=== PATIENT | male | born 1955 | race Caucasian/White ===

== ENCOUNTER → 2017-03-30 | Outpatient (CLI) | payer BC ==
[~2017-03-30] MED LIST: ACET-1256 PO; ALBUAER2 OR; CHOL100010 PO; CLOP1TAB5 PO; CZR25 PO; PRAV80TA2 PO; ZTA10 PO
[2017-03-30 08:46] LABS: BLOOD UREA NITROGEN 12 mg/dl (7-18); BUN/CREATININE RATIO 14.2 (10-20); CARBON DIOXIDE 29 mmol/L (21-32); CHLORIDE 107 mmol/L (98-107); CREATININE 0.86 mg/dl (0.60-1.40); GLUCOSE 95 mg/dl (70-99); POTASSIUM 4.2 mmol/L (3.5-5.1); SODIUM 141 mmol/L (136-145)
[2017-03-30 08:49] LABS: CHOLESTEROL 124 mg/dl (0-200); CHOLESTEROL/HDL RATIO 2.6; HDL CHOLESTEROL 48 mg/dl; LDL CHOLESTEROL CALCULATED 60 mg/dl; TRIGLYCERIDES 80 mg/dl (0-150); VERY LOW DENSITY LIPOPROT CALC 16 mg/dl
[2017-03-30 08:51] LABS: CALCIUM 8.8 mg/dl (8.5-10.1)
== END | disposition home or self-care (01) ==
LOC: C.LAB 08:04
PROVIDERS: ATTEND Family Medicine
DX: I10 Essential (primary) hypertension (principal)

== ENCOUNTER 2024-09-23 09:53 | Inpatient (IN) ==
[2024-09-23 10:38] LABS: Basophils # (auto) 0.02 K/uL (0.00-0.20); Basophils % (auto) 0.3 %; Eosinophils # (auto) 0.09 K/uL (0.00-0.50); Eosinophils % (auto) 1.1 %; Hematocrit (blood only) 39.4 % (42.0-52.0); Hemoglobin 13.6 g/dl (14.0-18.0); Immature Granulocytes # (auto) 0.15 K/uL (0.01-0.20); Immature Granulocytes % (auto) 1.9 %; Lymphocytes # (auto) 0.96 K/uL (1.20-3.40); Lymphocytes % (auto) 12.2 %; Mean Corpuscular Hemoglobin 29.8 pg (25.0-34.0); Mean Corpuscular Hgb Conc 34.5 g/dL (32.0-36.0); Mean Corpuscular Volume 86.2 fL (80.0-100.0); Mean Platelet Volume 9.3 fL (9.4-12.4); Monocytes # (auto) 0.74 K/uL (0.11-0.59); Monocytes % (auto) 9.4 %; Neutrophils # (auto) 5.94 K/uL (1.40-6.50); Neutrophils % (auto) 75.1 %; Platelet Count 256 K/uL (130-400); RDW Coefficient of Variation 12.8 % (11.5-14.5); RDW Standard Deviation 40.5 fL (36.4-46.3); Red Blood Count 4.57 M/uL (4.70-6.10)
--- NOTE | 2024-09-23 10:39 | XRay Report ---
XR pelvis 1-2V routine CLINICAL HISTORY: trauma COMPARISON: Pelvis and left hip radiographs September 14, 2024. FINDINGS: Sacroiliac joints and symphysis previous are intact. There are no fractures within the pel vis or hips. No osseous lesions are identified. IMPRESSION: No fractures within the pelvis or hips. ACT 112: Negative or not required by law. Electronically signed by: Andres Baumann M.D. 09/23/2024 10:38 AM
--- NOTE | 2024-09-23 10:42 | XRay Report ---
XR chest 1V portable HISTORY: 69 years-old Male fall acute chest trauma status post fall COMPARISON: 08/16/2015 TECHNIQUE: AP view of the chest FINDINGS: Cardiac silhouette is enlarged. Median sternotomy. No pneumothorax, pleural effusion or pulmonary vania ma. Mild left basilar atelectasis. The bones appear grossly intact. IMPRESSION: Cardiomegaly without acute process. ACT 112: Negative or not required by law. The above report was generated using voice recognition software. It may contain grammatical, syntax o r spelling errors. Electronically signed by: Ck Gonsalves M.D. 09/23/2024 10:41 AM
[2024-09-23 10:51] LABS: Albumin Globulin Ratio 1.3 (0.9-2); Albumin Level 4.2 gm/dl (3.4-5.0); BUN Creatinine Ratio 18.3 (10-20); Bilirubin,Total 0.6 mg/dl (0.2-1.0); Calcium 9.4 mg/dl (8.6-10.3); Creatinine Clr Calc Pharmacy 120.1 ml/min; Globulin 3.3 gm/dl (2.5-4.0); Total Protein 7.5 gm/dl (6.0-8.3)
[2024-09-23 11:36] LABS: iSTAT Creatinine 0.7 mg/dl (0.6-1.3); iSTAT Ionized Calcium 1.22 mmol/l (1.12-1.32)
[2024-09-23 11:55] LABS: Appearance Urine Clear (Clear); Bilirubin Urine Negative (Negative); Blood Urine Negative (Negative); Color Urine Yellow; Glucose Urine UA Negative (Negative); Ketones Urine Negative (Negative); Leukocyte Esterase Urine Negative (Negative); Nitrite Urine Negative (Negative); Protein Urine Negative (Negative); Specific Gravity Urine 1.012 (1.000-1.030); Urobilinogen Urine Negative (Negative)
[2024-09-23] MEDS: OPTIRAY 320 100ml IV ONE (11:57)
--- NOTE | 2024-09-23 12:13 | CT Scan Report ---
CT head/brain wo con CLINICAL HISTORY: fall, ? CHI, abrasion to head plavix Technique: Contiguous axial CT images of the head were acquired from the base of the skull to the jackelyn mariel without intravenous contrast administration. Images were viewed in brain, subdural and bone windo ws. Automated dose lowering techniques and/or adjustment according to patient size were utilized for this exam. Comparison: Comparison is made to CT head 09/25/2007 Findings: Areas of decreased attenuation are present in the periventricular and subcortical white matter bilate rally consistent with small vessel ischemic disease. Generalized cerebral volume loss with commensura te enlargement of the ventricles, sulci, and cisterns is also present. Chronic encephalomalacia is ag ain seen. Imaged portions of the paranasal sinuses and mastoid air cells are clear. The orbits appear normal. There are no acute fractures of the calvaria or scalp swelling. Impression: No acute intracranial hemorrhage, no evidence of acute territorial infarction or other acute intracra nial disease process. ACT 112: Negative or not required by law. Electronically signed by: Stanley Pierre M.D. 09/23/2024 12:11 PM
--- NOTE | 2024-09-23 12:28 | CT Scan Report ---
CT SCAN OF THE LUMBAR SPINE WITH IV CONTRAST CLINICAL HISTORY: Trauma. Fall. COMPARISON STUDY: CT scan of the lumbar spine dated 09/14/2024. Abdominal CT was performed concurrent ly on 09/23/2024. MRI of the lumbar spine dated 09/14/2024. TECHNIQUE: Following the IV administration of 94 mL of Optiray 320, CT scan of the lumbar spine is pe rformed from the lower thoracic spine to the sacrum. The images are reviewed in the axial, sagittal, and coronal planes. IV contrast was administered without complication. A dose lowering technique was utilized adhering to the principles of ALARA. FINDINGS: The skeletal structures are osteopenic. Moderate chronic compression deformities of L1, L2, and L3 are unchanged. There is an [id number] on chronic burst type compression fracture of L4 , which has not appreciably changed as compared to the 09/14/2024 examinations. There is moderate los s of height, and fragments are minimally retropulsed by up to 4 mm at this level. This does not contr ibute to significant central canal stenosis. Vertebral body height is maintained at T11, T12, and L5. Alignment is preserved. There is straightening of the lumbar lordosis. Anterior and lateral marginal osteophytes are seen throughout. The transverse and spinous processes appear intact. There is no spo ndylolysis. No lytic or blastic lesion is seen. Facet arthropathy is seen in the lower lumbar region. There is xupulpdd-jh-phmfyf disc space narrowing with endplate sclerosis at L5-S1. Only mild narrowi ng is noted at the remaining lumbar levels. The visualized sacrum and bony pelvis appear intact. Para vertebral edema is noted at L4. A gas and fluid containing complex collection in the left psoas muscl e is partially visualized There is mild fatty atrophy of the paraspinous musculature. There is mild a therosclerotic calcification of the abdominal aorta, which is normal in caliber. No retroperitoneal l ymphadenopathy is identified. IMPRESSION: 1. There is unchanged appearance of an zpwfm-yh-xsrekbay on chronic burst type compression fracture o f L4 as detailed above when compared to the 09/14/2024 examinations. 2. No new fracture is seen. 3. Additional chronic compression deformities as above. 4. A gas and fluid containing collection in the left psoas muscle is partially visualized, and is sim ilar in appearance to the 09/14/2024 examinations. ACT 112: Negative or not required by law. Dictated: 09/23/2024 12:08 PM Transcribed: 09/23/2024 12:24 PM Jayme [id number] [email or web address] Electronically signed by: Chapo Fang M.D. 09/23/2024 12:26 PM
--- NOTE | 2024-09-23 12:32 | CT Scan Report ---
ABDOMEN AND PELVIS CT WITH IV CONTRAST CT DOSE: 2184.29 mGy.cm HISTORY: Acute low back pain with possible retroperitoneal hemorrhage . History of L1, L2 and L3 [employer] yrn compression deformities and acute on chronic L4 compression deformity. TECHNIQUE: Multiaxial CT images of the abdomen and pelvis were performed following the IV administrat ion of 94 cc of Optiray, A dose lowering technique was utilized adhering to the principles of ALARA. COMPARISON STUDY: CT lumbar spine of same day and also 09/14/2024 FINDINGS: Median sternotomy. Mild cardiomegaly. No pneumothorax, pleural effusion or airspace consoli dation. No pneumoperitoneum. The spleen, pancreas, adrenal glands and liver appear unremarkable. Mild ly distended gallbladder. Patent portal vein. Small bilateral renal cysts. No hydronephrosis or suspicious renal mass lesions. Prostatomegaly. Mild distention of the urinary bladder. Small fat filled left inguinal hernia. Atherosclerosis of the aor ta without aneurysm or dissection. There is no lymphadenopathy. Colonic diverticulosis with minimal inflammatory stranding adjacent to the descending sigmoid junctio n. Mild to moderate colonic fecal retention. Normal appendix. There is decreased size of the left bruce l as retroperitoneal hemorrhage now measuring approximately 3.4 x 2.4 x 6 cm, previously measured at 6.2 x 3.7 x 3.0 cm. There is also subtle decreased amount of air within this collection. Numerous lum bar spine compression fractures are noted. Specifically, there is severe compression fractures of L1, L2, L3 and L4. The L1-L3 fractures are likely chronic. The L4 fracture is likely acute on subacute a nd unchanged from 09/14/2024 with 6 mm retropulsion. IMPRESSION: 1. Unchanged appearance of the acute on chronic L4 burst fracture with 6 mm retropulsion. 2. Intramuscular hematoma within the left psoas muscle with decreased amount of intramuscular air is overall stable to slightly decreased in size from prior. 3. Colonic diverticulosis with equivocal mild acute diverticulitis of the descending sigmoid junction . 4. Additional findings as above. ACT 112: Negative or not required by law. The above report was generated using voice recognition software. It may contain grammatical, syntax o r spelling errors. Electronically signed by: Ck Gonsalves M.D. 09/23/2024 12:30 PM
--- NOTE | 2024-09-23 14:00 | Emergency Department Note ---
Impression & Plan Closed L4 vertebral fracture, History of stroke, Hemiplegia, Ambulatory dysfunction ED Provider Note CHIEF COMPLAINT: Fall from the couch HISTORY OF PRESENT ILLNESS: This 69-year-old male patient past medical history of CVA with left-sided residual weakness, lumbar compression fracture, nystagmus, vertigo presents to the emergency department with complaints of a fall from the couch. The patient most recently suffered a burst injury of L4 and was placed in a TLSO brace. Patient states he has lots of chronic lower back pain and numbness of the lower extremities in addition to the weakness of the left. He was trying to walk with his walker, but could not get off the couch with his brace in place, he is complaining of pain in the right greater than left lower extremity which is a bit unusual for him. He denies any incontinence of bowel or bladder. He has followed by Dr. Arnett of orthopedic spine. Please refer to HPI, at least 10 systems reviewed and otherwise negative. REVIEW OF SYSTEMS: A review of systems was performed with positives and pertinent negatives listed in the history of present illness. 10 systems were reviewed and are otherwise negative. ALLERGIES: see below MEDICATIONS: see below PMH: see below SOCIAL HISTORY: see below DDx: Worsen compression fracture of L4, secondary compression fracture, psoas hematoma, muscular strain, cord compression, infectious etiology, metabolic derangement, dehydration among others. PHYSICAL EXAM: Vital signs reviewed. General: Chronically ill-appearing 69-year-old male, in no significant distress. HEENT: No scleral icterus, PERRLA, neck supple. Atraumatic. Cardiovascular: Regular rate and rhythm, no extra sounds. Pulmonary: Clear to auscultation bilaterally, normal work of breathing. Abdomen: Soft, nontender, nondistended, positive bowel sounds. Musculoskeletal: Atraumatic, no peripheral edema. No obvious trauma to the back, mild tenderness to palpation along the spine of the low lumbar, no evidence of step-off or deformity. Neurologic: Patient awake alert and oriented x 3, speech is clear. Cranial nerves II through XII are grossly intact. The left upper extremity is weak with a bit of contracture, and the left lower extremity is weak without evidence of contracture. Right upper and right lower extremities are 5/5. Skin: Warm, dry, no rash EMERGENCY DEPARTMENT COURSE/MDM: This patient was evaluated and appeared to be in no significant distress. IV access was obtained and laboratory work was drawn. The patient was placed on the director of cardiac cath lab and noted to be in a normal sinus rhythm. Patient declined the need for any analgesics at this time. Laboratory work is fairly reassuring. CT imaging of the lumbar spine was performed and reveals evidence of a previous L4 burst fracture without any significant change. There is also evidence of shift or strong intramuscular hematoma in the left psoas, which was visualized previously, and seems to be decreased in size. In light of his. Patient is not able to manage at home even with a walker. Nursing staff attempted to ambulate the patient he required a two-person assist and a walker. The hospitalist service was consulted for admission, the patient will likely require PT OT evaluation and consideration of the rehab stay. The patient and his family were updated as to the findings and plan and agreed. MONITORING: An order for cardiac monitoring was placed and the patient is noted to be in a normal sinus rhythm at 83 beats per minute. RADIOLOGY: Pelvis x-ray to my interpretation reveals no evidence of acute fracture. Otherwise refer to radiology's over read. Chest x-ray to my interpretation reveals no evidence of focal lung consolidation or failure. Otherwise defer to radiology. CT imaging of the abdomen and pelvis per radiology: IMPRESSION: 1. Unchanged appearance of the acute on chronic L4 burst fracture with 6 mm retropulsion. 2. Intramuscular hematoma within the left psoas muscle with decreased amount of intramuscular air is overall stable to slightly decreased in size from prior. 3. Colonic diverticulosis with equivocal mild acute diverticulitis of the descending sigmoid junction. 4. Additional findings as above. CT imaging of the lumbar spine with IV contrast: IMPRESSION: 1. There is unchanged appearance of an [id number] on chronic burst type compression fracture of L4 as detailed above when compared to the 09/14/2024 examinations. 2. No new fracture is seen. 3. Additional chronic compression deformities as above. 4. A gas and fluid containing collection in the left psoas muscle is partially visualized, and is similar in appearance to the 09/14/[address] imaging of the head per radiology: Reveals chronic encephalomalacia, no evidence of acute abnormality otherwise. EKG: To my interpretation reveals a sinus tachycardia at 107 bpm, previous inferior infarct, T wave abnormality, nonspecific. QTc of 421. DISPOSITION: Admission Past Med/Surg History Problem List (Updated 09/25/24 @ 13:50 by Vianey Manzo MD) Ambulatory dysfunction (Acute) Hemiplegia (Acute) History of stroke (Acute) Closed L4 vertebral fracture (Acute) Ambulatory dysfunction History of CVA (cerebrovascular accident) Recurrent falls Compression fracture of lumbar vertebra (Acute) Fall (Acute) Acute left-sided low back pain (Acute) Acute pain of left hip (Acute) Fracture of right ankle, lateral malleolus Encounter for pre-operative examination Finger laceration (Acute) Compression fracture of L1 lumbar vertebra (Acute) Horizontal nystagmus (Acute) Shortness of breath (Acute) Vertigo (Acute) Medical History Carotid artery stenosis s/p right carotid endarterectomy (~2000), Follows with Dr. Carpenter History of back pain Degenerative disc disease Stroke 1999, 2002 > residual left side weakness, on plavix Hypertension Hyperlipidemia Surgical History History of cardiac cath ~1999 ([facility] [place]) > no stents History of carotid endarterectomy Right carotid ([facility] [place]/~2000) Family History Other No family history of adverse response to anesthesia Social History Smoking Status: Never smoker Second Hand Exposure: No; Do You Dip or Chew Tobacco: No; Hx Alcohol Use: Yes Alcohol type: beer Hx Substance Use: No Preferred Language: Hungarian Communication Ability: Effective [employer] Required: No Beliefs That Will Affect Care: None Current Living Situation: Spouse Feels Safe at Home: Yes Safety Concerns: Feels Safe At This Time Assistive Devices: Bedside Commode and Walker Allergies Allergies Allergy/AdvReac Type Severity Reaction Status Date / Time No Known Allergies Allergy Unknown Verified 09/01/21 09:50 Home Meds Home Medications Medication Instructions Recorded Confirmed cholecalciferol (vitamin D3) 25 25 mcg PO QAM 08/18/21 09/23/24 mcg (1,000 unit) capsule (Vitamin D3) clopidogrel 75 mg tablet 75 mg PO QAM 08/18/21 09/23/24 ezetimibe 10 mg tablet 10 mg PO QAM 08/18/21 09/23/24 losartan 50 mg tablet 50 mg PO QAM 08/18/21 09/23/24 multivitamin 1 tab PO QAM 08/18/21 09/23/24 pravastatin 80 mg tablet 80 mg PO QAM 08/18/21 09/23/24 Previous Rx's Medication Instructions Recorded gabapentin 100 mg capsule 100 mg PO TID PRN tingling #30 caps 09/14/24 gabapentin 300 mg capsule 300 mg PO BID #60 caps 09/17/24 methocarbamol 500 mg tablet 500 mg PO TID PRN muscle spasms 09/17/24 #90 tabs Results & Data (ED) Vital Signs Vital Signs - 24 hr 09/23/24 10:00 09/23/24 10:00 09/23/24 10:00 Temperature 36.5 C 36.5 C Temperature Source Oral Pulse Rate 88 88 Pulse Rate [Apical] 88 Pulse Rhythm Regular Pulse Rhythm [Apical] Regular Pulse Strength Normal Pulse Strength [Apical] Normal Respiratory Rate 14 14 14 Respiratory Effort / Characteristics Non-Labored Non-Labored Respiratory Depth Normal Normal Respiratory Pattern Regular Regular Blood Pressure 127/87 127/87 Blood Pressure [Right Arm] 127/87 Blood Pressure Mean 100 Blood Pressure Mean [Right Arm] 100 Blood Pressure Position [Right Arm] Lying Pulse Oximetry 94 94 94 Oxygen Delivery Method Room Air Room Air Room Air Sepsis Recent Fever Within 48 Hours No Sepsis New/Unexplained Change in Mental Status No Sepsis Action Taken by Nursing No Action Required 09/23/24 10:00 09/23/24 10:00 09/23/24 10:13 Temperature Temperature Source Pulse Rate 81 Pulse Rate [Apical] 88 Pulse Rhythm Regular Pulse Rhythm [Apical] Regular Pulse Strength Pulse Strength [Apical] Normal Respiratory Rate 14 18 Respiratory Effort / Characteristics Non-Labored Respiratory Depth Normal Respiratory Pattern Regular Blood Pressure Blood Pressure [Right Arm] 127/87 Blood Pressure Mean Blood Pressure Mean [Right Arm] 100 Blood Pressure Position [Right Arm] Lying Pulse Oximetry 94 95 Oxygen Delivery Method Room Air Room Air Room Air Sepsis Recent Fever Within 48 Hours Sepsis New/Unexplained Change in Mental Status Sepsis Action Taken by Nursing 09/23/24 10:30 09/23/24 12:43 09/23/24 12:43 Temperature Temperature Source Pulse Rate 91 H Pulse Rate [Apical] 83 83 Pulse Rhythm Pulse Rhythm [Apical] Pulse Strength Pulse Strength [Apical] Respiratory Rate 20 20 Respiratory Effort / Characteristics Non-Labored Non-Labored Respiratory Depth Normal Normal Respiratory Pattern Blood Pressure Blood Pressure [Right Arm] 123/82 123/87 Blood Pressure Mean Blood Pressure Mean [Right Arm] 95 99 Blood Pressure Position [Right Arm] Pulse Oximetry 93 98 Oxygen Delivery Method Room Air Room Air Sepsis Recent Fever Within 48 Hours Sepsis New/Unexplained Change in Mental Status Sepsis Action Taken by Nursing 09/23/24 14:48 09/23/24 14:48 09/23/24 15:00 Temperature Temperature Source Pulse Rate Pulse Rate [Apical] 87 87 87 Pulse Rhythm Pulse Rhythm [Apical] Pulse Strength Pulse Strength [Apical] Respiratory Rate 20 20 20 Respiratory Effort / Characteristics Non-Labored Non-Labored Non-Labored Spontaneous Respiratory Depth Normal Normal Respiratory Pattern Blood Pressure Blood Pressure [Right Arm] 130/86 Blood Pressure Mean Blood Pressure Mean [Right Arm] 100 Blood Pressure Position [Right Arm] Lying Pulse Oximetry 98 98 98 Oxygen Delivery Method Room Air Room Air Room Air Sepsis Recent Fever Within 48 Hours Sepsis New/Unexplained Change in Mental Status Sepsis Action Taken by Retirement Medications Current Medication List: was personally reviewed by me Laboratory Data Attestation: I reviewed the patient's lab results. 09/24/24 07:18 09/24/24 07:18 Lab Results 09/23/24 09/23/24 09/23/24 Range/Units 09:59 11:16 11:22 WBC 7.90 (4.8-10.8) K/ul RBC 4.57 L (4.70-6.10) M/uL Hgb 13.6 L (14.0-18.0) g/dl POC Hgb 18.0 (14.0-18.0) g/dl Hct 39.4 L (42.0-52.0) % POC Hct 53 H (42-52) % MCV 86.2 (80.0-100.0) fL MCH 29.8 (25.0-34.0) pg MCHC 34.5 (32.0-36.0) g/dL RDW Std Deviation 40.5 (36.4-46.3) fL RDW Coeff of Ag 12.8 (11.5-14.5) % Plt Count 256 (130-400) K/uL MPV 9.3 L (9.4-12.4) fL Immature Gran % (Auto) 1.9 % Neut % (Auto) 75.1 % Lymph % (Auto) 12.2 % [place] % (Auto) 9.4 % Eos % (Auto) 1.1 % Baso % (Auto) 0.3 % Neut # (Auto) 5.94 (1.40-6.50) K/uL Lymph # (Auto) 0.96 L (1.20-3.40) K/uL [place] # (Auto) 0.74 H (0.11-0.59) K/uL Eos # (Auto) 0.09 (0.00-0.50) K/uL Baso # (Auto) 0.02 (0.00-0.20) K/uL Immature Gran # (Auto) 0.15 (0.01-0.20) K/uL POC Sodium 136 (135-144) mmol/L Sodium 134 L (136-145) mmol/L POC Potassium 4.0 (3.3-5.0) mmol/L Potassium 4.0 (3.5-5.1) mmol/L POC Chloride 100 L (101-112) mmol/L Chloride 102 (98-107) mmol/L Carbon Dioxide 25 (21-32) mmol/L POC Total CO2 23 L (24-31) mmol/L Anion Gap 7 (3-11) POC Anion Gap 18.0 (16-25) mmol/L POC BUN 13 (7-18) mg/dl BUN 13 (6-23) mg/dl Creatinine 0.71 (0.6-1.4) mg/dl POC Creatinine 0.7 (0.6-1.3) mg/dl Est Cr Clr Drug Dosing 120.1 ml/min eGFR 98.70 BUN/Creatinine Ratio 18.3 (10-20) Glucose 116 H (70-99(Fasting)) mg/dl POC Glucose (other) 111 H (70-99) mg/dl Calcium 9.4 (8.6-10.3) mg/dl POC Ioniz Calcium Cee 1.22 (1.12-1.32) mmol/l Total Bilirubin 0.6 (0.2-1.0) mg/dl AST 21 (13-39) U/L ALT 22 (7-52) U/L Alkaline Phosphatase 89 (34-104) U/L Total Protein 7.5 (6.0-8.3) gm/dl Albumin 4.2 (3.4-5.0) gm/dl Globulin 3.3 (2.5-4.0) gm/dl Albumin/Globulin Ratio 1.3 (0.9-2) Urine Color Yellow Urine Appearance Clear (Clear) Urine pH 7.0 (4.5-7.5) Ur Specific [place] 1.012 (1.000-1.030) Urine Protein Negative (Negative) Urine Glucose (UA) Negative (Negative) Urine Ketones Negative (Negative) Urine Blood Negative (Negative) Urine Nitrite Negative (Negative) Urine Bilirubin Negative (Negative) Urine Urobilinogen Negative (Negative) Ur Leukocyte Esterase Negative (Negative) Administered Medications Acetaminophen (Acetaminophen 325 Mg Tab) 650 mg PO Q4H PRN PRN Reason: pain/fever Stop: 10/23/24 17:42 Last Admin: 09/25/24 02:50 Dose: 650 mg Documented By: Admin: 09/24/24 21:41 Dose: 650 mg Documented By: Admin: 09/24/24 03:08 Dose: 650 mg Documented By: Admin: 09/23/24 19:37 Dose: 650 mg Documented By: SMITHA Clopidogrel Bisulfate (Clopidogrel Bisulfate 75 Mg Tab) 75 mg PO [facility] Stop: 10/24/24 08:59 Last Admin: 09/25/24 07:30 Dose: 75 mg Documented By: Admin: 09/24/24 07:24 Dose: 75 mg Documented By: ESTEFNAIA Ezetimibe (Ezetimibe 10 Mg Tab) 10 mg PO [facility] Stop: 10/24/24 08:59 Last Admin: 09/25/24 07:30 Dose: 10 mg Documented By: Admin: 09/24/24 07:24 Dose: 10 mg Documented By: ESTEFANIA Enoxaparin Sodium (Enoxaparin Inj 40 Mg/0.4 Ml Syr) 40 mg SQ [facility] Stop: 10/25/24 08:59 Last Admin: 09/25/24 08:01 Dose: 40 mg Documented By: NAY Gabapentin (Gabapentin 300 Mg Cap) 300 mg PO BID [facility] Stop: 10/23/24 20:59 Last Admin: 09/25/24 07:30 Dose: 300 mg Documented By: Admin: 09/24/24 21:41 Dose: 300 mg Documented By: Admin: 09/24/24 07:25 Dose: 300 mg Documented By: Admin: 09/23/24 20:10 Dose: 300 mg Documented By: SMITHA Losartan Potassium (Losartan Potassium 50 Mg Tab) 50 mg PO [facility] Stop: 10/24/24 08:59 Last Admin: 09/25/24 07:30 Dose: 50 mg Documented By: Admin: 09/24/24 07:24 Dose: 50 mg Documented By: ESTEFANIA Pravastatin Sodium (Pravastatin Sod 40 Mg Tab) 80 mg PO [facility] Stop: 10/24/24 08:59 Last Admin: 09/25/24 07:30 Dose: 80 mg Documented By: Admin: 09/24/24 07:24 Dose: 80 mg Documented By: ESTEFANIA Discontinued Medications Ioversol (Optiray 320 100ml) 94 ml IV ONCE ONE Stop: 09/23/24 11:58 Last Admin: 09/23/24 11:57 Dose: 94 ml Documented By: YARA Lidocaine (Lidocaine 5% 1 Patch) 1 patch TD NOW STA Stop: 09/23/24 14:59 Last Admin: 09/23/24 15:15 Dose: 1 patch Documented By: DEVEN Miscellaneous (Remove Lidoderm Patch) 1 each N/A TODAY@2100 ONE Stop: 09/23/24 21:01 Last Admin: 09/23/24 20:11 Dose: 1 each Documented By: SMITHA Imaging Data Radiologist's Impression: Pelvis X-Ray 09/23/24 10:13 XR pelvis 1-2V routine CLINICAL HISTORY: trauma COMPARISON: Pelvis and left hip radiographs September 14, 2024. FINDINGS: Sacroiliac joints and symphysis previous are intact. There are no fractures within the pelvis or hips. No osseous lesions are identified. IMPRESSION: No fractures within the pelvis or hips. ACT 112: Negative or not required by law. Electronically signed by: Andres Baumann M.D. 09/23/2024 10:38 AM Abdomen/Pelvis CT 09/23/24 10:[address] WITH IV CONTRAST CT DOSE: 2184.29 mGy.cm HISTORY: Acute low back pain with possible retroperitoneal hemorrhage . History of L1, L2 and L3 chronic compression deformities and acute on chronic L4 compression deformity. TECHNIQUE: Multiaxial CT images of the abdomen and pelvis were performed following the IV administration of 94 cc of Optiray, A dose lowering technique was utilized adhering to the principles of ALARA. COMPARISON STUDY: CT lumbar spine of same day and also 09/14/2024 FINDINGS: Median sternotomy. Mild cardiomegaly. No pneumothorax, pleural effusion or airspace consolidation. No pneumoperitoneum. The spleen, pancreas, adrenal glands and liver appear unremarkable. Mildly distended gallbladder. Patent portal vein. Small bilateral renal cysts. No hydronephrosis or suspicious renal mass lesions. Prostatomegaly. Mild distention of the urinary bladder. Small fat filled left inguinal hernia. Atherosclerosis of the aorta without aneurysm or dissection. There is no lymphadenopathy. Colonic diverticulosis with minimal inflammatory stranding adjacent to the descending sigmoid junction. Mild to moderate colonic fecal retention. Normal appendix. There is decreased size of the left cell as retroperitoneal hemorrhage now measuring approximately 3.4 x 2.4 x 6 cm, previously measured at 6.2 x 3.7 x 3.0 cm. There is also subtle decreased amount of air within this collection. Numerous lumbar spine compression fractures are noted. Specifically, there is severe compression fractures of L1, L2, L3 and L4. The L1-L3 fractures are likely chronic. The L4 fracture is likely acute on subacute and unchanged from 09/14/2024 with 6 mm retropulsion. IMPRESSION: 1. Unchanged appearance of the acute on chronic L4 burst fracture with 6 mm retropulsion. 2. Intramuscular hematoma within the left psoas muscle with decreased amount of intramuscular air is overall stable to slightly decreased in size from prior. 3. Colonic diverticulosis with equivocal mild acute diverticulitis of the descending sigmoid junction. 4. Additional findings as above. ACT 112: Negative or not required by law. The above report was generated using voice recognition software. It may contain grammatical, syntax or spelling errors. Electronically signed by: Ck Gonsalves M.D. 09/23/2024 12:30 PM Chest X-Ray 09/23/24 10:14 XR chest 1V portable HISTORY: 69 years-old Male fall acute chest trauma status post fall COMPARISON: 08/16/2015 TECHNIQUE: AP view of the chest FINDINGS: Cardiac silhouette is enlarged. Median sternotomy. No pneumothorax, pleural effusion or pulmonary edema. Mild left basilar atelectasis. The bones appear grossly intact. IMPRESSION: Cardiomegaly without acute process. ACT 112: Negative or not required by law. The above report was generated using voice recognition software. It may contain grammatical, syntax or spelling errors. Electronically signed by: Ck Gonsalves M.D. 09/23/2024 10:[address] 09/23/24 10:14 CT SCAN OF THE LUMBAR SPINE WITH IV CONTRAST CLINICAL HISTORY: Trauma. Fall. COMPARISON STUDY: CT scan of the lumbar spine dated 09/14/2024. Abdominal CT was performed concurrently on 09/23/2024. MRI of the lumbar spine dated 09/14/2024. TECHNIQUE: Following the IV administration of 94 mL of Optiray 320, CT scan of the lumbar spine is performed from the lower thoracic spine to the sacrum. The images are reviewed in the axial, sagittal, and coronal planes. IV contrast was administered without complication. A dose lowering technique was utilized adhering to the principles of ALARA. FINDINGS: The skeletal structures are osteopenic. Moderate chronic compression deformities of L1, L2, and L3 are unchanged. There is an [id number] on chronic burst type compression fracture of L4, which has not appreciably changed as compared to the 09/14/2024 examinations. There is moderate loss of height, and fragments are minimally retropulsed by up to 4 mm at this level. This does not contribute to significant central canal stenosis. Vertebral body height is maintained at T11, T12, and L5. Alignment is preserved. There is straightening of the lumbar lordosis. Anterior and lateral marginal osteophytes are seen throughout. The transverse and spinous processes appear intact. There is no spondylolysis. No lytic or blastic lesion is seen. Facet arthropathy is seen in the lower lumbar region. There is [id number] disc space narrowing with endplate sclerosis at L5-S1. Only mild narrowing is noted at the remaining lumbar levels. The visualized sacrum and bony pelvis appear intact. Paravertebral edema is noted at L4. A gas and fluid containing complex collection in the left psoas muscle is partially visualized There is mild fatty atrophy of the paraspinous musculature. There is mild atherosclerotic calcification of the abdominal aorta, which is normal in caliber. No retroperitoneal lymphadenopathy is identified. IMPRESSION: 1. There is unchanged appearance of an [id number] on chronic burst type compression fracture of L4 as detailed above when compared to the 09/14/2024 examinations. 2. No new fracture is seen. 3. Additional chronic compression deformities as above. 4. A gas and fluid containing collection in the left psoas muscle is partially visualized, and is similar in appearance to the 09/14/2024 examinations. ACT 112: Negative or not required by law. Dictated: 09/23/2024 12:08 PM Transcribed: 09/23/2024 12:24 PM Jayme [id number] [email or web address] Electronically signed by: Chapo Fang M.D. 09/23/2024 12:[address] 09/23/24 10:17 CT head/brain wo con CLINICAL HISTORY: fall, ? [facility], abrasion to head plavix Technique: Contiguous axial CT images of the head were acquired from the base of the skull to the vertex without intravenous contrast administration. Images were viewed in brain, subdural and bone windows. Automated dose lowering techniques and/or adjustment according to patient size were utilized for this exam. Comparison: Comparison is made to CT head 09/25/2007 Findings: Areas of decreased attenuation are present in the periventricular and subcortical white matter bilaterally consistent with small vessel ischemic disease. Generalized cerebral volume loss with commensurate enlargement of the ventricles, sulci, and cisterns is also present. Chronic encephalomalacia is again seen. Imaged portions of the paranasal sinuses and mastoid air cells are clear. The orbits appear normal. There are no acute fractures of the calvaria or scalp swelling. Impression: No acute intracranial hemorrhage, no evidence of acute territorial infarction or other acute intracranial disease process. ACT 112: Negative or not required by law. Electronically signed by: Stanley Pierre M.D. 09/23/2024 12:11 PM Discharge Plan Visit Data Chief Complaint: Trauma ED Provider: Vianey Manzo Discharge Problem: Closed L4 vertebral fracture, History of stroke, Hemiplegia, Ambulatory dysfunction Patient Disposition: Admitted As Inpatient Discharge Instructions Interventions: ED Discharge Assessment Last Done: 09/23/24 17:17
--- NOTE | 2024-09-23 14:10 | History & Physical Report ---
Date of Service September 23, 2024 Assessment & Plan (1) Compression fracture of lumbar vertebra: Plan: Patient originally fell on 09/10 and was diagnosed with a L4 compression fracture on 09/14 Sustained another ground-level fall while getting off the couch on 09/23 Imaging is largely unchanged Case management consulted for rehab placement upon discharge Acetaminophen as needed for pain Lidocaine patch daily Heat/ice application as needed A.m. CBC, BMP (2) Recurrent falls: Plan: PT/OT evaluations appreciated Fall precautions (3) History of CVA (cerebrovascular accident): Plan: Residual left-sided deficits; contributory (4) Ambulatory dysfunction: Plan Disposition: Admit to [facility] Full code Regular diet VTE PPx: Teds History of Present Illness Chief Complaint: Trauma Primary Care Provider: Alierza Ramírez MD Devin is a 69-year-old male with PMH of vertigo, CVA, and L1 compression fracture. He presented on 09/23 for recurrent fall and ambulatory dysfunction. He was initially seen in the ED on 09/14 for a fall that occurred on 09/10 leading to a burst fracture at L4. He had an MRI done at that time, and followed up with a spine doctor outpatient (Dr. Arnett) who fit him for a TLSO brace. Then today, he reports he got off his couch and fell onto the floor. He denies head strike, but does note he has a slight abrasion on the back of his head. No LOC. He is on Plavix for history of strokes. He ambulates with a walker and cane at baseline, and reports he had his walker at the time. Patient has a history of recurrent falls, which is multi factorial. He has a history of stroke in 1999, and mini stroke in 2002 which was led to left upper and and lower extremity deficits. He also has a history of a right ankle surgery 3 years ago with residual right ankle deficits. Family is at the bedside, and reports that he does have right foot drop, and drags his foot when he walks. His falls have been increasing in frequency: Fell in July, then at the beginning of September, then again today. Patient took his regular morning medicines today; only recent change was that he was started on a muscle relaxer the past week for his back. Patient manages own medicine at home. He reports he does have lower back pain, but is only with movements. ED has been taking Tylenol and a muscle relaxer for pain, as well as his gabapentin, which helps. He denies smoking, tobacco use, recent alcohol use. Vital stable at time of admission. ED course: ROS: Patient endorses cold intolerance, lower back pain with movements, ambulatory dysfunction, and constipation + some dark tarry stool (which started after starting the muscle relaxer). Patient denies fever, chills, dizziness, lightheadedness, headache, syncope, chest pain, pleuritic CP, SOB, cough, abdominal pain, N/V/D, saddle anesthesia, urinary/fecal incontinence, bright red blood in the urine or stool, or numbness or tingling in the legs bilaterally. Allergies Allergy/AdvReac Type Severity Reaction Status Date / Time No Known Allergies Allergy Unknown Verified 09/01/21 09:50 Home Medications Medication Instructions Recorded Confirmed Type cholecalciferol (vitamin D3) 25 25 mcg PO QAM 08/18/21 09/23/24 History mcg (1,000 unit) capsule (Vitamin D3) clopidogrel 75 mg tablet 75 mg PO QAM 08/18/21 09/23/24 History ezetimibe 10 mg tablet 10 mg PO QAM 08/18/21 09/23/24 History losartan 50 mg tablet 50 mg PO QAM 08/18/21 09/23/24 History multivitamin 1 tab PO QAM 08/18/21 09/23/24 History pravastatin 80 mg tablet 80 mg PO QAM 08/18/21 09/23/24 History gabapentin 100 mg capsule 100 mg PO TID PRN tingling #30 caps 09/14/24 09/23/24 Rx gabapentin 300 mg capsule 300 mg PO BID #60 caps 09/17/24 09/23/24 Rx methocarbamol 500 mg tablet 500 mg PO TID PRN muscle spasms 09/17/24 09/23/24 Rx #90 tabs Past Med/Surg History Problem List (Updated 09/23/24 @ 14:28 by Gómez Ravi PA-C) Ambulatory dysfunction History of CVA (cerebrovascular accident) Recurrent falls Compression fracture of lumbar vertebra (Acute) Fall (Acute) Acute left-sided low back pain (Acute) Acute pain of left hip (Acute) Fracture of right ankle, lateral malleolus Encounter for pre-operative examination Finger laceration (Acute) Compression fracture of L1 lumbar vertebra (Acute) Horizontal nystagmus (Acute) Shortness of breath (Acute) Vertigo (Acute) Medical History Carotid artery stenosis s/p right carotid endarterectomy (~2000), Follows with Dr. Carpenter Degenerative disc disease History of back pain Hyperlipidemia Hypertension Stroke 1999, 2002 > residual left side weakness, on plavix Surgical History History of cardiac [place] ~[place] [place] > no stents History of carotid endarterectomy Right carotid [place] [place]) Family History Other No family history of adverse response to anesthesia Social History Smoking Status: Never smoker Second Hand Exposure: No; Do You Dip or Chew Tobacco: No; Hx Alcohol Use: Yes Alcohol type: beer Hx Substance Use: No Preferred Language: Spanish Communication Ability: Effective Sock Lining Stitcher Required: No Beliefs That Will Affect Care: None Current Living Situation: Spouse Feels Safe at Home: Yes Assistive Devices: Brace/Splint/Immobilizer, Denture - Upper, Denture - Lower, Glasses and Walker Review of Systems Review of Systems: See HPI above Physical Exam Physical Exam: General: no acute distress; family at bedside non-toxic appearing; frail appearing; cooperative; SpO2 90% on RA HEENT: normocephalic, atraumatic; no scleral icterus; PERRLA w/ EOMs intact; vision and hearing grossly intact Neck: supple; no lymphadenopathy; trachea midline Skin: warm, dry without signs of tenting; no cyanosis; no rashes, bruising, lesions, or erythema noted CV: chest wall NTP; RRR; S1/S2 normal; no murmurs/rubs/gallops; pulses intact and symmetric at radial, DP, and PT Lungs: no acute respiratory distress; symmetrical chest wall expansion; clear breath sounds across all lung fox w/o adventitious sounds; no wheezing ABD: Soft, NTP; BS present; no rebound/guarding; no distention MSK: Muscle atrophy noted on the LUE and LLE; no tics or fasciculations; no edema noted in the LEs b/l, nonerythematous; patient demonstrates ability to wiggle toes/plantarflex/dorsiflex against resistance with 5/5 strength, and lift legs off the bed bilaterally with 4/5 strength Neuro: A&Ox3; normal mood and affect; fluent speech; no focal deficits; patient reports decreased sensation in the left lower extremity when compared to the right assessed via light touch Results & Data Results & Data Vital Signs (Past 12 Hours) Vital Signs Temp Pulse Pulse Resp BP BP Pulse Ox 09/23/24 12:43 83 20 123/87 98 09/23/24 12:43 83 20 123/82 93 09/23/24 10:30 91 H 09/23/24 10:13 81 18 95 09/23/24 10:00 88 14 127/87 94 09/23/24 10:00 09/23/24 10:00 36.5 C 88 14 127/87 94 09/23/24 10:00 88 14 127/87 94 09/23/24 10:00 36.5 C 88 14 127/87 94 O2 Del Method 09/23/24 12:43 Room Air 09/23/24 12:43 Room Air 09/23/24 10:30 09/23/24 10:13 Room Air 09/23/24 10:00 Room Air 09/23/24 10:00 Room Air 09/23/24 10:00 Room Air 09/23/24 10:00 Room Air 09/23/24 10:00 Room Air Laboratory Results Abnormal lab results 09/23/24 09/23/24 Range/Units 09:59 11:22 RBC 4.57 L (4.70-6.10) M/uL Hgb 13.6 L (14.0-18.0) g/dl Hct 39.4 L (42.0-52.0) % POC Hct 53 H (42-52) % MPV 9.3 L (9.4-12.4) fL Lymph # (Auto) 0.96 L (1.20-3.40) K/uL [place] # (Auto) 0.74 H (0.11-0.59) K/uL Sodium 134 L (136-145) mmol/L POC Chloride 100 L (101-112) mmol/L POC Total CO2 23 L (24-31) mmol/L Glucose 116 H (70-99(Fasting)) mg/dl POC Glucose (other) 111 H (70-99) mg/dl Diagnostic Findings Pelvis X-Ray 09/23/24 10:13 XR pelvis 1-2V routine CLINICAL HISTORY: trauma COMPARISON: Pelvis and left hip radiographs September 14, 2024. FINDINGS: Sacroiliac joints and symphysis previous are intact. There are no fractures within the pelvis or hips. No osseous lesions are identified. IMPRESSION: No fractures within the pelvis or hips. ACT 112: Negative or not required by law. Electronically signed by: Andres Baumann M.D. 09/23/2024 10:38 AM Abdomen/Pelvis CT 09/23/24 10:[address] WITH IV CONTRAST CT DOSE: 2184.29 mGy.cm HISTORY: Acute low back pain with possible retroperitoneal hemorrhage . History of L1, L2 and L3 chronic compression deformities and acute on chronic L4 compression deformity. TECHNIQUE: Multiaxial CT images of the abdomen and pelvis were performed following the IV administration of 94 cc of Optiray, A dose lowering technique was utilized adhering to the principles of ALARA. COMPARISON STUDY: CT lumbar spine of same day and also 09/14/2024 FINDINGS: Median sternotomy. Mild cardiomegaly. No pneumothorax, pleural effusion or airspace consolidation. No pneumoperitoneum. The spleen, pancreas, adrenal glands and liver appear unremarkable. Mildly distended gallbladder. Patent portal vein. Small bilateral renal cysts. No hydronephrosis or suspicious renal mass lesions. Prostatomegaly. Mild distention of the urinary bladder. Small fat filled left inguinal hernia. Atherosclerosis of the aorta without aneurysm or dissection. There is no lymphadenopathy. Colonic diverticulosis with minimal inflammatory stranding adjacent to the descending sigmoid junction. Mild to moderate colonic fecal retention. Normal appendix. There is decreased size of the left cell as retroperitoneal hemorrhage now measuring approximately 3.4 x 2.4 x 6 cm, previously measured at 6.2 x 3.7 x 3.0 cm. There is also subtle decreased amount of air within this collection. Numerous lumbar spine compression fractures are noted. Specifically, there is severe compression fractures of L1, L2, L3 and L4. The L1-L3 fractures are likely chronic. The L4 fracture is likely acute on subacute and unchanged from 09/14/2024 with 6 mm retropulsion. IMPRESSION: 1. Unchanged appearance of the acute on chronic L4 burst fracture with 6 mm retropulsion. 2. Intramuscular hematoma within the left psoas muscle with decreased amount of intramuscular air is overall stable to slightly decreased in size from prior. 3. Colonic diverticulosis with equivocal mild acute diverticulitis of the descending sigmoid junction. 4. Additional findings as above. ACT 112: Negative or not required by law. The above report was generated using voice recognition software. It may contain grammatical, syntax or spelling errors. Electronically signed by: Ck Gonsalves M.D. 09/23/2024 12:30 PM Chest X-Ray 09/23/24 10:14 XR chest 1V portable HISTORY: 69 years-old Male fall acute chest trauma status post fall COMPARISON: 08/16/2015 TECHNIQUE: AP view of the chest FINDINGS: Cardiac silhouette is enlarged. Median sternotomy. No pneumothorax, pleural effusion or pulmonary edema. Mild left basilar atelectasis. The bones appear grossly intact. IMPRESSION: Cardiomegaly without acute process. ACT 112: Negative or not required by law. The above report was generated using voice recognition software. It may contain grammatical, syntax or spelling errors. Electronically signed by: Ck Gonsalves M.D. 09/23/2024 10:[address] 09/23/24 10:14 CT SCAN OF THE LUMBAR SPINE WITH IV CONTRAST CLINICAL HISTORY: Trauma. Fall. COMPARISON STUDY: CT scan of the lumbar spine dated 09/14/2024. Abdominal CT was performed concurrently on 09/23/2024. MRI of the lumbar spine dated 09/14/2024. TECHNIQUE: Following the IV administration of 94 mL of Optiray 320, CT scan of the lumbar spine is performed from the lower thoracic spine to the sacrum. The images are reviewed in the axial, sagittal, and coronal planes. IV contrast was administered without complication. A dose lowering technique was utilized adhering to the principles of ALARA. FINDINGS: The skeletal structures are osteopenic. Moderate chronic compression deformities of L1, L2, and L3 are unchanged. There is an sawvw-le-ododzdwv on chronic burst type compression fracture of L4, which has not appreciably changed as compared to the 09/14/2024 examinations. There is moderate loss of height, and fragments are minimally retropulsed by up to 4 mm at this level. This does not contribute to significant central canal stenosis. Vertebral body height is maintained at T11, T12, and L5. Alignment is preserved. There is straightening of the lumbar lordosis. Anterior and lateral marginal osteophytes are seen throughout. The transverse and spinous processes appear intact. There is no spondylolysis. No lytic or blastic lesion is seen. Facet arthropathy is seen in the lower lumbar region. There is qtcamsoq-az-wtpzro disc space narrowing with endplate sclerosis at L5-S1. Only mild narrowing is noted at the remaining lumbar levels. The visualized sacrum and bony pelvis appear intact. Paravertebral edema is noted at L4. A gas and fluid containing complex collectio n in the left psoas muscle is partially visualized There is mild fatty atrophy of the paraspinous musculature. There is mild atherosclerotic calcification of the abdominal aorta, which is normal in caliber. No retroperitoneal lymphadenopathy is identified. IMPRESSION: 1. There is unchanged appearance of an yqfsv-fh-vxjlyjrt on chronic burst type compression fracture of L4 as detailed above when compared to the 09/14/2024 examinations. 2. No new fracture is seen. 3. Additional chronic compression deformities as above. 4. A gas and fluid containing collection in the left psoas muscle is partially visualized, and is similar in appearance to the 09/14/2024 examinations. ACT 112: Negative or not required by law. Dictated: 09/23/2024 12:08 PM Transcribed: 09/23/2024 12:24 PM Jayme [id number] [email or web address] Electronically signed by: Chapo Fang M.D. 09/23/2024 12:[address] 09/23/24 10:17 CT head/brain wo con CLINICAL HISTORY: fall, ? [facility], abrasion to head plavix Technique: Contiguous axial CT images of the head were acquired from the base of the skull to the vertex without intravenous contrast administration. Images were viewed in brain, subdural and bone windows. Automated dose lowering techniques and/or adjustment according to patient size were utilized for this exam. Comparison: Comparison is made to CT head 09/25/2007 Findings: Areas of decreased attenuation are present in the periventricular and subcortical white matter bilaterally consistent with small vessel ischemic disease. Generalized cerebral volume loss with commensurate enlargement of the ventricles, sulci, and cisterns is also present. Chronic encephalomalacia is again seen. Imaged portions of the paranasal sinuses and mastoid air cells are clear. The orbits appear normal. There are no acute fractures of the calvaria or scalp swelling. Impression: No acute intracranial hemorrhage, no evidence of acute territorial infarction or other acute intracranial disease process. ACT 112: Negative or not required by law. Electronically signed by: Stanley Pierre M.D. 09/23/2024 12:11 PM ECG Additional Comments: ECG revealed sinus tachycardia at 107 bpm; QTc 421 Code Status & VTE Plan Code Status Full code VTE Prophylaxis Plan VTE Prophylaxis will be ordered: Yes PG Care Time/CCT Total # of Minutes Spent Total Time Spent with Patient: Total time spent is greater than 50% in coordination of care (as documented) at patient's floor/unit and/or counseling patient: Coding [place] [address] INT INP/OBS CARE 2/55MIN Patient Type Established History Comprehensive Exam Comprehensive Medical Decision Making Moderate Complexity Diagnoses Compression fracture of L4 vertebra, initial encounter S32.040A Encounter type: initial encounter Lumbar vertebra fracture level: L4 Recurrent falls R29.6 History of CVA (cerebrovascular accident) Z86.73 Ambulatory dysfunction R26.2 (1) Compression fracture of lumbar vertebra Encounter type: initial encounter Lumbar vertebra fracture level: L4 Qualified Code(s): S32.040A - Wedge compression fracture of fourth lumbar vertebra, initial encounter for closed fracture
[2024-09-23] MEDS: LIDOCAINE 5% 1 PATCH TD STA (15:15)
[2024-09-23] MEDS ORDERED: GABAPENTIN 100 MG CAP PO PRN (17:43)
[2024-09-23] MEDS ORDERED: METHOCARBAMOL 500 MG TABLET PO PRN (17:43)
[2024-09-23] MEDS: ACETAMINOPHEN 325 MG TAB PO PRN (19:37)
[2024-09-23] MEDS: GABAPENTIN 300 MG CAP PO SCH (20:10)
--- NOTE | 2024-09-24 06:00 | Electrocardiogram Report ---
Test Reason : Blood Pressure : */* mmHG Vent. Rate : 107 BPM Atrial Rate : 107 BPM P-R Int : 136 ms QRS Dur : 78 ms QT Int : 316 ms P-R-T Axes : -3 -5 23 degrees QTcB Int : 421 ms Sinus tachycardia Inferior infarct , age undetermined Nonspecific T wave abnormality Abnormal ECG When compared with ECG of 28-Aug-2021 14:40, Inferior infarct is now Present Nonspecific T wave abnormality now evident in Inferior leads Nonspecific T wave abnormality now evident in Anterior leads Confirmed by Pastor Genao ([id number]) on 09/24/2024 6:00:21 AM Referred By: REFERRED SELF Confirmed By: Pastor Genao
[2024-09-24] MEDS: LOSARTAN POTASSIUM 50 MG TAB PO SCH (07:24)
[2024-09-24] MEDS: PRAVASTATIN SOD 40 MG TAB PO SCH (07:24)
[2024-09-24] MEDS: EZETIMIBE 10 MG TAB PO SCH (07:24)
[2024-09-24] MEDS: CLOPIDOGREL BISULFATE 75 MG TAB PO SCH (07:24)
[2024-09-24 07:46] LABS: Basophils # (auto) 0.05 K/uL (0.00-0.20); Basophils % (auto) 0.5 %; Eosinophils # (auto) 0.16 K/uL (0.00-0.50); Eosinophils % (auto) 1.7 %; Hematocrit (blood only) 38.7 % (42.0-52.0); Hemoglobin 12.9 g/dl (14.0-18.0); Immature Granulocytes # (auto) 0.04 K/uL (0.01-0.20); Immature Granulocytes % (auto) 0.4 %; Lymphocytes # (auto) 1.35 K/uL (1.20-3.40); Lymphocytes % (auto) 14.3 %; Mean Corpuscular Hgb Conc 33.3 g/dL (32.0-36.0); Mean Platelet Volume 9.1 fL (9.4-12.4); Monocytes # (auto) 0.97 K/uL (0.11-0.59); Monocytes % (auto) 10.3 %; Neutrophils # (auto) 6.89 K/uL (1.40-6.50); Neutrophils % (auto) 72.8 %; Platelet Count 231 K/uL (130-400); RDW Coefficient of Variation 13.2 % (11.5-14.5); RDW Standard Deviation 43.3 fL (36.4-46.3); White Blood Count 9.46 K/ul (4.8-10.8)
[2024-09-24 08:03] LABS: BUN Creatinine Ratio 15.7 (10-20); Calcium 8.7 mg/dl (8.6-10.3); Creatinine Clr Calc Pharmacy 121.8 ml/min; Potassium 3.9 mmol/L (3.5-5.1)
--- NOTE | 2024-09-24 15:56 | Hospitalist Progress Note ---
Date of Service September 24, 2024 Assessment & Plan (1) Compression fracture of lumbar vertebra: Plan: Patient originally fell on 09/10 and was diagnosed with a L4 compression fracture on 09/14. Was seen by ortho spine outpatient - rx for TLSO brace, gabapentin and robaxin. Sustained another ground-level fall while getting off the couch on 09/23 - Imaging is largely unchanged Pain control: tylenol, gabaptenin, robaxin, lidocaine patch, heat/ice PT/OT - recommending rehab, case management following (2) History of CVA (cerebrovascular accident): Plan: Residual left-sided deficits; contributory Contnue statin, plavix, and ezetimibe Plan Dispo: continued inpatient stay awaiting placement DVT proh: lovenox Admission and Anticipated Discharge Date Admission Date: September 23, 2024 Subjective Patient seen sitting up in the chair just piror to lunch. States pain is well controlled at this time, but worse in the hips when he starts moving/walking. Does feel like the TLSO brace fits. Good appetite, no chest pain. Conversationally dyspneic but reports this is his normal. Does not take inhalers at home. Review of Systems Review of Systems: All systems reviewed & are unremarkable except as noted in Subjective Physical Exam Physical Exam: General: NAD, VS as above Resp:conversationally dyspneic but not adventitious sound, lungs clear to auscultation CV: RRR, no murmur, Abd: soft , non tender, no hepatosplenomegaly Extremities: Moves all extremities, no edema Neuro: A&O x3, Results & Data Results & Data Vital Signs (Past 12 Hours) Vital Signs Temp Pulse Resp BP Pulse Ox O2 Del Method 09/24/24 15:02 97.7 F 72 18 110/78 97 Room Air 09/24/24 07:51 97.5 F L 81 18 136/90 96 Room Air 09/24/24 07:15 Room Air Laboratory Results CBC and chemistry reviewed PG Care Time/CCT Total # of Minutes Spent Total Time Spent with Patient: Total time spent is greater than 50% in coordination of care (as documented) at patient's floor/unit and/or counseling patient: Coding Level of Care Code 34970 SUB INP/OBS CARE 2/35MIN Diagnoses Compression fracture of L4 vertebra, initial encounter S32.040A Encounter type: initial encounter Lumbar vertebra fracture level: L4 History of CVA (cerebrovascular accident) Z86.73 (1) Compression fracture of lumbar vertebra Encounter type: initial encounter Lumbar vertebra fracture level: L4 Qualified Code(s): S32.040A - Wedge compression fracture of fourth lumbar vertebra, initial encounter for closed fracture
[2024-09-25] MEDS: ENOXAPARIN INJ 40 MG/0.4 ML SYR SQ SCH (08:01)
--- NOTE | 2024-09-25 13:37 | Hospitalist Progress Note ---
Date of Service September 25, 2024 Assessment & Plan (1) Compression fracture of lumbar vertebra: Plan: Patient originally fell on 09/10 and was diagnosed with a L4 compression fracture on 09/14. Was seen by ortho spine outpatient - rx for TLSO brace, gabapentin and robaxin. Sustained another ground-level fall while getting off the couch on 09/23 Concerns for possible osteopetrosis - takes Vit D at home, AM vit D level - Imaging is largely unchanged Pain control: tylenol, gabaptenin, robaxin, lidocaine patch, heat/ice PT/OT - recommending rehab, case management following (2) History of CVA (cerebrovascular accident): Plan: Residual left-sided deficits; contributory Contnue statin, plavix, and ezetimibe Plan Dispo: continued inpatient stay awaiting placement DVT proh: lovenox Admission and Anticipated Discharge Date Admission Date: September 23, 2024 Subjective Patient seen sitting up in the chair, had just gotten washed up. Pain is currently a 2/10 waiting to go to rehab does not feel short of breath, not coughing. Does not think he has ever seen a vocational education professional, does not take inhalers at home. Saturating well on room air. Provided incentive spirometer Review of Systems Review of Systems: All systems reviewed & are unremarkable except as noted in Subjective Physical Exam Physical Exam: General: NAD, VS as above Resp:conversationally dyspneic but not adventitious sound, lungs clear to auscultation CV: RRR, no murmur, Abd: soft , non tender, no hepatosplenomegaly Extremities: Moves all extremities, no edema Neuro: A&O x3, Results & Data Results & Data Vital Signs (Past 12 Hours) Vital Signs Temp Pulse Resp BP Pulse Ox O2 Del Method 09/25/24 07:34 97.5 F L 77 16 135/89 97 Room Air 09/25/24 07:25 Room Air PG Care Time/CCT Total # of Minutes Spent Total Time Spent with Patient: Total time spent is greater than 50% in coordination of care (as documented) at patient's floor/unit and/or counseling patient: Coding Level of Care Code 37079 SUB INP/OBS CARE 12/26MIN Diagnoses Compression fracture of L4 vertebra, initial encounter S32.040A Encounter type: initial encounter Lumbar vertebra fracture level: L4 History of CVA (cerebrovascular accident) Z86.73 (1) Compression fracture of lumbar vertebra Encounter type: initial encounter Lumbar vertebra fracture level: L4 Qualified Code(s): S32.040A - Wedge compression fracture of fourth lumbar vertebra, initial encounter for closed fracture
[2024-09-25] MEDS: MELATONIN 3 MG TAB PO PRN (22:08)
[2024-09-26] MEDS: INFLUENZA VACC TS2024-25(65y+)/PF (IIV3) 0.5mL Syr IM ONE (09:20)
[2024-09-26] MEDS: PNEUMOCOCCAL VACCINE (PCV20) 20-VAL CONJ-DIP CRM/PF 0.5 ML SYR IM ONE (09:21)
[2024-09-26] MEDS: CHOLECALCIFEROL 25 MCG (1000 UNITS) TAB PO SCH (10:29)
--- NOTE | 2024-09-26 11:07 | Hospitalist Progress Note ---
Date of Service September 26, 2024 Assessment & Plan (1) Compression fracture of lumbar vertebra: Plan: Patient originally fell on 09/10 and was diagnosed with a L4 compression fracture on 09/14. Was seen by ortho spine outpatient - rx for TLSO brace, gabapentin and robaxin. Sustained another ground-level fall while getting off the couch on 09/23 Concerns for possible osteopetrosis - takes Vit D at home, Vit D level border line, supplement continued. consider osteoperosis tx outpatient. - Imaging is largely unchanged Pain control: tylenol, gabaptenin, robaxin, lidocaine patch, heat/ice PT/OT - recommending rehab, case management following (2) History of CVA (cerebrovascular accident): Plan: Residual left-sided deficits; contributory Contnue statin, plavix, and ezetimibe (3) History of asthma: Plan: Patient conversationally dyspenic - pt and family report this is baseline. Maintaing 95-97% on room air without adventicious lung sounds. -lifelong nonsmoker - CXR without acute pathology thinks he has seen [facility] in the past, used to use inhalers but not recently. Agreeable to outpatient pulm referral (placed on D/c instructions) Plan Dispo: continued inpatient stay awaiting placement DVT proh: lovenox Admission and Anticipated Discharge Date Admission Date: September 23, 2024 Subjective patient seen sititng in the chair, no family present at bedside. Pain 1/10 currently, more with activity but overall better than yesterday. mainly doing turn and pivots. discussed Vit D level lifelong non smoker Review of Systems Review of Systems: All systems reviewed & are unremarkable except as noted in Subjective Physical Exam Physical Exam: General: NAD, VS as above Resp:conversationally dyspneic but not adventitious sound, lungs clear to auscultation CV: RRR, no murmur, Abd: soft , non tender, no hepatosplenomegaly Extremities: Moves all extremities, no edema Neuro: A&O x3, Results & Data Results & Data Vital Signs (Past 12 Hours) Vital Signs Temp Pulse Resp BP Pulse Ox O2 Del Method 09/26/24 07:14 Room Air 09/26/24 07:10 97.7 F 82 16 142/96 H 96 Room Air Laboratory Results Vit D level reviewed PG Care Time/CCT Total # of Minutes Spent Total Time Spent with Patient: Total time spent is greater than 50% in coordination of care (as documented) at patient's floor/unit and/or counseling patient: Coding Level of Care Code 01630 SUB INP/OBS CARE 2/35MIN Diagnoses Compression fracture of L4 vertebra, initial encounter S32.040A Encounter type: initial encounter Lumbar vertebra fracture level: L4 History of CVA (cerebrovascular accident) Z86.73 History of asthma Z87.09 (1) Compression fracture of lumbar vertebra Encounter type: initial encounter Lumbar vertebra fracture level: L4 Qualified Code(s): S32.040A - Wedge compression fracture of fourth lumbar vertebra, initial encounter for closed fracture
[2024-09-27 07:45] VITALS: RESP 16
--- NOTE | 2024-09-27 11:52 | Hospitalist Progress Note ---
Date of Service September 27, 2024 Assessment & Plan (1) Compression fracture of lumbar vertebra: Plan: Patient originally fell on 09/10 and was diagnosed with a L4 compression fracture on 09/14. Was seen by ortho spine outpatient - rx for TLSO brace, gabapentin and robaxin. Sustained another ground-level fall while getting off the couch on 09/23 Concerns for possible osteopetrosis - takes Vit D at home, Vit D level border line, supplement continued. consider osteoperosis tx outpatient. - Imaging is largely unchanged Pain control: tylenol, gabaptenin, robaxin, lidocaine patch, heat/ice PT/OT - recommending rehab, case management following- awaiting auth (2) History of CVA (cerebrovascular accident): Plan: Residual left-sided deficits; contributory Contnue statin, plavix, and ezetimibe (3) History of asthma: Plan: Patient conversationally dyspenic - pt and family report this is baseline. Maintaing 95-97% on room air without adventicious lung sounds. -lifelong nonsmoker - CXR without acute pathology thinks he has seen [facility] in the past (no records in computer), used to use inhalers but not recently. Agreeable to outpatient pulm referral (placed on D/c instructions) Plan Dispo: continued inpatient stay awaiting placement DVT proh: javed Family updated at bedside 09/25 Admission and Anticipated Discharge Date Admission Date: September 23, 2024 Subjective Patient sitting in the chair. Pain is well controlled, has not been able to walk yet, only turn and pivot moving bowels Review of Systems Review of Systems: All systems reviewed & are unremarkable except as noted in Subjective Physical Exam Physical Exam: General: NAD, VS as above Resp:conversationally dyspneic (improving) but not adventitious sound, lungs clear to auscultation CV: RRR, no murmur, Abd: soft , non tender, no hepatosplenomegaly Extremities: Moves all extremities, no edema Neuro: A&O x3, Results & Data Results & Data Vital Signs (Past 12 Hours) Vital Signs Temp Pulse Resp BP Pulse Ox O2 Del Method 09/27/24 07:43 97.5 F L 80 16 141/89 H 96 Room Air PG Care Time/CCT Total # of Minutes Spent Total Time Spent with Patient: Total time spent is greater than 50% in coordination of care (as documented) at patient's floor/unit and/or counseling patient: Coding Level of Care Code 64255 SUB INP/OBS CARE 12/26MIN Diagnoses Compression fracture of L4 vertebra, initial encounter S32.040A Encounter type: initial encounter Lumbar vertebra fracture level: L4 History of CVA (cerebrovascular accident) Z86.73 History of asthma Z87.09 (1) Compression fracture of lumbar vertebra Encounter type: initial encounter Lumbar vertebra fracture level: L4 Qualified Code(s): S32.040A - Wedge compression fracture of fourth lumbar vertebra, initial encounter for closed fracture
[2024-09-28 08:00] VITALS: PULSE 78; TEMP 97.3; O2SAT 96
--- NOTE | 2024-09-28 09:54 | Discharge Summary ---
Discharge Summary Date of Service September 28, 2024 Principal Dx & Hospital Course #1 = Principal Diagnosis (1) Compression fracture of lumbar vertebra: Patient originally fell on 09/10 and was diagnosed with a L4 compression fracture on 09/14. Was seen by ortho spine outpatient - rx for TLSO brace, gabapentin and robaxin. Sustained another ground-level fall while getting off the couch on 09/23 *Age-related osteoporosis w current path fracture, lumbar vertebra(e) Concerns for possible osteopetrosis - takes Vit D at home, Vit D level border line, supplement continued. Consider osteopetrosis treatment outpatient. - Imaging is largely unchanged Pain control: tylenol, gabaptenin, robaxin, lidocaine patch, heat/ice Added Calcitonin spray x 4 weeks upon discharge. Alternate nares. One spray daily PT/OT recommended rehab - patient discharged to [facility] 09/28. (2) History of CVA (cerebrovascular accident): Residual left-sided deficits; contributory Contnue statin, plavix, and ezetimibe (3) History of asthma: Patient conversationally dyspenic - pt and family report this is baseline. Maintaing 95-97% on room air without adventicious lung sounds. -lifelong nonsmoker - CXR without acute pathology thinks he has seen [facility] in the past (no records in computer), used to use inhalers but not recently. Agreeable to outpatient pulm referral - added to disc harge instructions. Plan Updated with discharge planning 09/28. Admission HPI Per Admitting Provider Devin is a 69-year-old male with PMH of vertigo, CVA, and L1 compression fracture. He presented on 09/23 for recurrent fall and ambulatory dysfunction. He was initially seen in the ED on 09/14 for a fall that occurred on 09/10 leading to a burst fracture at L4. He had an MRI done at that time, and followed up with a spine doctor outpatient (Dr. Arnett) who fit him for a TLSO brace. Then today, he reports he got off his couch and fell onto the floor. He denies head strike, but does note he has a slight abrasion on the back of his head. No LOC. He is on Plavix for history of strokes. He ambulates with a walker and cane at baseline, and reports he had his walker at the time. Patient has a history of recurrent falls, which is multi factorial. He has a history of stroke in 1999, and mini stroke in 2002 which was led to left upper and and lower extremity deficits. He also has a history of a right ankle surgery 3 years ago with residual right ankle deficits. Family is at the bedside, and reports that he does have right foot drop, and drags his foot when he walks. His falls have been increasing in frequency: Fell in July, then at the beginning of September, then again today. Patient took his regular morning medicines today; only recent change was that he was started on a muscle relaxer the past week for his back. Patient manages own medicine at home. He reports he does have lower back pain, but is only with movements. ED has been taking Tylenol and a muscle relaxer for pain, as well as his gabapentin, which helps. He denies smoking, tobacco use, recent alcohol use. Vital stable at time of admission. ED course: ROS: Patient endorses cold intolerance, lower back pain with movements, ambulatory dysfunction, and constipation + some dark tarry stool (which started after starting the muscle relaxer). Patient denies fever, chills, dizziness, lightheadedness, headache, syncope, chest pain, pleuritic CP, SOB, cough, abdominal pain, N/V/D, saddle anesthesia, urinary/fecal incontinence, bright red blood in the urine or stool, or numbness or tingling in the legs bilaterally. Discharge Exam Constitutional WD/WN, vitals as above Eyes PERRL, conjunctivae normal, anicteric sclerae Respiratory breathing unlabored Cardiovascular well perfused Musculoskeletal brace in place Skin no rashes, warm and dry Psychiatric A+Ox3, euthymic affect Discharge Plan Discharge Items Patient Disposition: Transfer Inpatient Rehab Fac Reason For Visit: L4 COMPRESSION FX, AMBULATORY DYSFUNCTION Discharge Diagnosis: L4 compression fracture Activity: As commented below Activity Comment: per rehab recommendations Driving/Machine Use: No limitations Weightbearing: Full weightbearing Non-emergency contact: Primary Care Provider Call non-emergency contact if: you have any medication questions, your symptoms worsen and your pain is not controlled Follow-up/Referrals: Irma Reddy MD, FCCP [Physician] - (conversationally dyspneic. ? need for PFTs ) Alireza Ramírez MD [Primary Care Provider] - Chapo Arnett MD [Surgeon] - (Keep follow up at scheduled. ) Diet: Regular Addtl Attending Provider Instructions: Mr. Fiore, You were recently hospitalized following a fall. You are being followed by orthopedics for your L4 compression fracture. You are now going to rehab prior to returning home to help regain your strength back. Please see recommendations below regarding your discharge. 1. Please resume your outpatient medications as previously prescribed. 2. Please use TLSO brace for ambulation and pain relief as recommended by orthopedics. 3. Please use Calcitonin spray x 4 weeks. - this will help with pain from fracture. One spray in nostril daily. Alternate nostrils. 4. Please avoid lifting anything greater than 5 pounds. 5. Please follow up with orthopedics outpatient. 6. Please follow up with pulmonology for asthma outpatient. Office phone number: [phone] 7. Please follow up with PCP within 1-2 weeks of discharge. If you develop any worsening symptoms including chest pain, shortness of breath, worsened weakness/fatigue please report back to ER for further care. Sincerely, Florencia Inman PA-C Pending Studies at Discharge: No Stand-Alone Forms: My [facility] Skilled Items Patient informed of condition?: Yes DNR: No Discharge Level of Care: Acute rehab Communicable Disease: No Discharge Prognosis: Stable Lines: None Urinary Catheter: No Medications and DC Order Prescriptions: New calcitonin (salmon) 200 unit/actuation spray,non-aerosol 1 spray intranasal (ALT) DAILY Qty: 3.7 0RF Rx Instructions: Please use one spray alternating nostril daily x 4 weeks. Continued methocarbamol 500 mg tablet 500 mg PO TID PRN (Reason: muscle spasms) Qty: 90 0RF gabapentin 300 mg capsule 300 mg PO BID Qty: 60 1RF Rx Instructions: Start with one capsule at night for 4 days, if incomplete relief increase to one capsule at night and one in AM, if needed increase to one capsule three times daily. If adverse side effects decrease medication by one capsule every three days until off. multivitamin Tablet 1 tab PO QAM losartan 50 mg tablet 50 mg PO QAM clopidogrel 75 mg tablet 75 mg PO QAM pravastatin 80 mg tablet 80 mg PO QAM cholecalciferol (vitamin D3) [Vitamin D3] 25 mcg (1,000 unit) Capsule 25 mcg PO QAM ezetimibe 10 mg tablet 10 mg PO QAM gabapentin 100 mg capsule 100 mg PO TID PRN (Reason: tingling) Qty: 30 0RF Discharge Orders: Discharge Order (Routine); Ordered 09/28/24 Ordered By: Florencia Smith/Other Patient Handouts: Preventing Falls in the Home, Preventing Falls: Staying Active, Preventing Falls Preparation, Prevent Falls Make Health Priority Admission Data Admit Date/Time: 09/23/24 14:58 Attending Provider: Maksim Adams Admit Provider: Brandon Quick Primary Care Provider: Alireza Ramírez [facility]; Serge Aguiar [facility] [place] Other Interventions: Discharge Summary Assessment (RN) Last Done: 09/28/24 11:58 Hospital Stay Data Consultations 09/23/24 14:44 ED Decision to Admit Stat Diagnostic Imagining Performed 09/23/24 10:14 CT abd pelvis IV con only Stat CT lumbar spine w con Stat 09/23/24 10:17 CT head/brain wo con Stat Pending Results Patient Have Any Pending Studies at Discharge: No Discharge Instructions Given to Patient (Per Discharging Provider) Mr. Fiore, You were recently hospitalized following a fall. You are being followed by orthopedics for your L4 compression fracture. You are now going to rehab prior to returning home to help regain your strength back. Please see recommendations below regarding your discharge. 1. Please resume your outpatient medications as previously prescribed. 2. Please use TLSO brace for ambulation and pain relief as recommended by orthopedics. 3. Please use Calcitonin spray x 4 weeks. - this will help with pain from fracture. One spray in nostril daily. Alternate nostrils. 4. Please avoid lifting anything greater than 5 pounds. 5. Please follow up with orthopedics outpatient. 6. Please follow up with pulmonology for asthma outpatient. Office phone number: [phone] 7. Please follow up with PCP within 1-2 weeks of discharge. If you develop any worsening symptoms including chest pain, shortness of breath, worsened weakness/fatigue please report back to ER for further care. Sincerely, Florencia Inman PA-C Supervising Physician Co-Signing Physician Notes During face to face encounter, I obtained a brief physical examination, discussed hospital stay with patient and discharge instructions with patient. I discussed discharge plan of care with ROSIE Inman. I reviewed above note and agree with it except for the following: Patient seen for a L4 compression fracture. Patient discharged on a TLSO brace. Patient alos given calcitonin spray x 4 weeks and pain regimen. Total Time Total Time Spent Total Time Spent (In Minutes): 40 Total Time Includes: Examination of the Patient, Discharge Planning and Medication Reconciliation Coding Level of Care Code 25573 INP/OBS DISCH >30 MIN Diagnoses Compression fracture of L4 vertebra, initial encounter S32.040A Encounter type: initial encounter Lumbar vertebra fracture level: L4 History of CVA (cerebrovascular accident) Z86.73 History of asthma Z87.09
[2024-09-28 12:05] VITALS: BP 110/78
[2024-09-28] MEDS: CALCITONIN SALMON NA 200 IU/AC 3.7 ML BTL SCH (12:53)
== END 2024-09-28 13:25 | DRG 543 ==
LOC: ED 09:53 → SUATTDRO 14:58 → 3W 14:58
DX: Z79.02 Long term (current) use of antithrombotics/antiplatelets; Z91.81 History of falling; R42 Dizziness and giddiness; M21.371 Foot drop, right foot; Z79.899 Other long term (current) drug therapy; W08.XXXA Fall from other furniture, initial encounter; Q78.2 Osteopetrosis; I69.354 Hemiplegia and hemiparesis following cerebral infarction affecting left non-dominant side; Y92.018 Other place in single-family (private) house as the place of occurrence of the external cause; S70.02XA Contusion of left hip, initial encounter; J45.909 Unspecified asthma, uncomplicated; M80.08XA Age-related osteoporosis with current pathological fracture, vertebra(e), initial encounter for fracture; R29.6 Repeated falls

== ENCOUNTER 2025-01-10 07:31 | Inpatient (IN) ==
[2025-01-10] MEDS: OPTIRAY 320 125ml IV ONE (07:37)
[2025-01-10 08:04] LABS: Basophils # (auto) 0.03 K/uL (0.00-0.20); Basophils % (auto) 0.5 %; Eosinophils # (auto) 0.16 K/uL (0.00-0.50); Eosinophils % (auto) 2.7 %; Hematocrit (blood only) 34.9 % (42.0-52.0); Hemoglobin 11.7 g/dl (14.0-18.0); Immature Granulocytes # (auto) 0.02 K/uL (0.01-0.20); Immature Granulocytes % (auto) 0.3 %; Lymphocytes # (auto) 1.13 K/uL (1.20-3.40); Lymphocytes % (auto) 19.3 %; Mean Corpuscular Hemoglobin 29.8 pg (25.0-34.0); Mean Corpuscular Hgb Conc 33.5 g/dL (32.0-36.0); Mean Platelet Volume 9.1 fL (9.4-12.4); Monocytes # (auto) 0.66 K/uL (0.11-0.59); Monocytes % (auto) 11.3 %; Neutrophils # (auto) 3.85 K/uL (1.40-6.50); Neutrophils % (auto) 65.9 %; Platelet Count 152 K/uL (130-400); RDW Coefficient of Variation 13.3 % (11.5-14.5); Red Blood Count 3.92 M/uL (4.70-6.10); White Blood Count 5.85 K/ul (4.8-10.8)
--- NOTE | 2025-01-10 08:11 | CT Scan Report ---
EXAM: CT head/brain wo con CLINICAL HISTORY: Neuro deficit, acute stroke suspected TECHNIQUE: Axial non-contrast CT scan of the brain was performed from the skull base to the high parietal region with coronal and sagittal reformats. One of the following dose reduction techniques were utilized for this exam: Automated exposure control, adjustment of the mA and/or kV according to patient size, use of iterative reconstruction. COMPARISON: 09/23/2024 CT. FINDINGS: Brain Parenchyma: Old lacunar infarct in the right cerebellar region. Prominent ventricular system and extra-axial CSF spaces suggesting senile changes. diffuse periventricular hypodensity suggesting chronic microvascular ischemic changes. Areas of hypodensity cortical and subcortical locations noted centrum semiovale of both frontal parietal regions likely representing old ischemic insult. Ill-defined subcortical area of hypodensity noted in the left occipital region likely representing old insult. No evidence of hemorrhage, or mass effect. Ventricular System: Ventricles are normal in size and configuration. No evidence of hydrocephalus or ventricular enlargement. Subarachnoid Spaces: Normal sulci and cisterns. No evidence of subarachnoid hemorrhage or extra-axial fluid collections. Cerebellum and Brainstem: Normal size and signal. No masses, lesions, or areas of abnormal signal. Orbits: Normal appearance of the globes, optic nerves, and extraocular muscles. No evidence of orbital masses or abnormal signals. Sinuses: Clear paranasal sinuses. No evidence of sinusitis or mucosal thickening. Mastoid Air Cells: Clear mastoid air cells. No evidence of mastoiditis. Skull: Normal skull morphology. IMPRESSION: 1. Senile changes with chronic microvascular ischemic changes. 2. Stable centrum semiovale of both frontal-parietal regions old ischemic insults, However,M RI DWI is advised to exclude the possibility of acute ischemic insult on top. 3. Stable left occipital old ischemic insult. 4. Compared to prior study no detected interval changes. Electronically signed by Nadir Hernandez 01-10-2025 08:11 AM
[2025-01-10] MEDS ORDERED: No Aspirin within 24hrs of THROMBOLYTIC-Stroke PO SCH (08:15)
[2025-01-10 08:16] LABS: Partial Thromboplastin Time 27 Seconds (21-31); Prothrombin Time 10.4 Seconds (9.0-12.0)
[2025-01-10] MEDS: STAT IV/IM STA (08:16)
[2025-01-10] MEDS: SODIUM CHLORIDE 0.9% 10ML FLUSH IV STA (08:21)
[2025-01-10] MEDS: TENECTEPLASE 25 MG in SYRINGE 0 ML IV ONE (08:22)
[2025-01-10 08:23] LABS: Albumin Globulin Ratio 1.2 (0.9-2); Albumin Level 3.3 gm/dl (3.4-5.0); BUN Creatinine Ratio 28.6 (10-20); Bilirubin,Total 0.4 mg/dl (0.2-1.0); Calcium 8.6 mg/dl (8.6-10.3); Creatinine Clr Calc Pharmacy 124.8 ml/min; Globulin 2.7 gm/dl (2.5-4.0); Potassium 4.1 mmol/L (3.5-5.1)
--- NOTE | 2025-01-10 08:23 | CT Scan Report ---
EXAM: CT angio head w con CLINICAL HISTORY: Neuro deficit, acute stroke suspected. TECHNIQUE: CT angiography of the head was performed following the intravenous administration of 120ml Opitray-320mg/ml intravenous contrast material. Contiguous axial images were obtained from the base of the skull to the vertex. Coronal and sagittal reformatted images were also reviewed. One of these 3D techniques was utilized: Maximum Intensity Pixel (MIP), 3D Reconstructed Images, Volume Rendered Images, Surface Shaded Rendering. One of the following dose-reduction techniques was utilized for this exam. Automated exposure control, adjustment of the mA and/or kV according to patient size, and use of iterative reconstruction. COMPARISON: No previous studies are available for comparison. FINDINGS: Intracranial Arteries: The intracranial arteries, including the anterior cerebral arteries, middle cerebral arteries, posterior cerebral arteries, basilar artery, and vertebral arteries, are all patent without evidence of significant stenosis, aneurysm, or dissection. There is no evidence of vascular malformations. [place]: The [place] is intact with no anatomical variations or abnormalities noted. All segments are well-visualized and normal in appearance. Mildly attenuated opercular branches Of both middle cerebral arteries with no definite significant stenosis or thrombosis Venous System: The visualized portions of the venous system, including the dural venous sinuses, are patent with no evidence of thrombosis. Bones: The bony structures of the skull are intact without evidence of fracture or destructive lesions. Soft Tissues: The visualized soft tissues of the head are unremarkable. Additional Findings: Attenuated right vertebral artery likely normal variant IMPRESSION: 1. No evidence of acute thrombosis, significant stenosis nor aneurysms in the intracranial arteries. 2. Mildly attenuated opercular branches of both middle cerebral arteries with no definite significant stenosis or thrombosis. 3. Attenuated right vertebral artery likely normal variant. Electronically signed by Nadir Hernandez 01-10-2025 08:22 AM
--- NOTE | 2025-01-10 08:26 | CT Scan Report ---
EXAM: CT angio neck with con CLINICAL HISTORY: Neuro deficit, acute stroke suspected TECHNIQUE: CT angiography of the neck was performed following the intravenous administration of 120ml Opitray-320mg/ml of contrast material. Coronal and sagittal reformatted images were also reviewed. One of the following dose reduction techniques was utilized for this exam. Automated exposure control, adjustment of the mA and/or kV according to patient size, and use of iterative reconstruction. One of these 3D techniques was utilized: Maximum Intensity Pixel (MIP), 3D Reconstructed Images, Volume Rendered Images, Surface Shaded Rendering. COMPARISON: No previous studies are available for comparison. FINDINGS: Carotid Arteries: Mild atherosclerotic changes of both carotid system. The common, internal, and external carotid arteries are patent bilaterally with no evidence of significant stenosis, aneurysm, or dissection. There is no evidence of atherosclerotic plaque causing significant luminal narrowing. Vertebral Arteries: The vertebral arteries are patent bilaterally with no evidence of significant stenosis, aneurysm, or dissection. Thyroid Gland: The thyroid gland is normal in size and appearance with no focal lesions. Lymph Nodes: There is no evidence of significant lymphadenopathy in the neck. Soft Tissues: The soft tissues of the neck are unremarkable with no evidence of masses or abnormal collections. Additional Findings: Retropharyngeal course of the left common carotid artery. IMPRESSION: 1. No evidence of significant stenosis, aneurysm, or dissection. 2. Retropharyngeal course of the left common carotid artery. Electronically signed by Nadir Hernandez 01-10-2025 08:26 AM
[2025-01-10 08:30] LABS: Troponin I High Sensitivity 20.4 pg/ml (0-20)
--- NOTE | 2025-01-10 08:34 | XRay Report ---
EXAM: XR chest 1V portable CLINICAL HISTORY: Neuro deficit, acute stroke suspected. TECHNIQUE: An X-ray image of the chest is obtained in PA projection. COMPARISON: CR dated 09/23/2024. FINDINGS: Pulmonary Parenchyma: Bilateral prominent bronchovascular/interstitial markings. No evidence of consolidation, collapse, or focal opacities. No pulmonary nodules are identified. No evidence of pleural effusion or pleural thickening. Heart and Mediastinum: Limited evaluation of the cardiac size given an AP projection. No mediastinal widening or masses. No hilar or mediastinal lymphadenopathy. Bony Thorax: The bony thorax appears intact without fractures or deformities. [Post CABG sternotomy] sutures seen in situ. Soft Tissues: Soft tissues overlying the chest wall are unremarkable. IMPRESSION: 1. Bilateral prominent bronchovascular/interstitial markings. Bronchitis/congestion. 2. Comparing the previous x-ray dated 09/23/2024 the findings remain stable. Electronically signed by Nadir Hernandez 01-10-2025 08:34 AM
--- NOTE | 2025-01-10 08:40 | Emergency Department Note ---
Impression & Plan Stroke-like symptoms ED Provider Note NAME: JULES NAPOLES AGE: 69 SEX: Male INFORMANT: Patient and family ED PROVIDER(S): Gamal Chapman MD CHIEF COMPLAINT: Strokelike symptoms PLAN: Disposition: Admitted to the ICU Outpatient prescription management: none Referral: None MEDICAL DECISION MAKING: Patient presented and was taken promptly to CT scan as he was made a stroke alert. He was evaluated upon return to the examination room. Findings were concerning for possible stroke given his gaze preference and difficulty with extraocular muscles. Patient also had difficulty with [id number]. [facility] consulted. Spoke with Dr. Nava. He evaluated the patient via telestroke and felt the patient was a TNK candidate. I had already contacted pharmacy to notify them and did place the order. TNK was at the bedside. Patient was consented in the usual fashion. Family was present for this. They were in agreement after discussion of risks and benefits. Patient did receive TNK. He was monitored. I did consult with critical care medicine, Dr. Wang. Patient will be admitted to the ICU. Consultation was made with Dr. Mar of the hospitalist service. Case discussed and diagnostics were reviewed. Patient will be admitted under her service for further care and management post TNK. Patient was reassessed several times and was having improvement of his visual symptoms. Patient had better ability to follow with extraocular testing. Less blurriness. Still has some slight diplopia but was feeling better. Patient was admitted to the ICU. Care/management discussed with: manager pipeline, critical care, telestroke, hospitalist, pharmacist Level of care consideration(s): After review of the information above and other included data, I feel the patient requires escalation of care to admission Triage Nursing notes: reviewed and agree them. Vital Signs: reviewed and remarkable for no significant abnormalities Additional History obtained from: Family. They provided additional insight to the patient's prior stroke and history. By their accounts the patient was treated with a "stroke medication" at [facility]. Chronic Medical/Social Conditions affecting care: Prior stroke Prior/ Outside/ External records reviewed: Prior orthopedic consultation records reviewed from November and December through the [facility]. Patient had a fall and compression fracture 4 months ago. This does not disqualify him from TNK. Did discuss with [facility] and they are in agreement. Differential Diagnosis: CVA, TIA,Infection, dehydration, metabolic abnormality, hypo/hyperglycemia, electrolyte disturbance, anemia, hypoxia, cardiac sources, intracerebral event, toxicologic, neurologic, as well as other pathologies. Diagnostics, independently interpreted by me: ECG: Twelve-lead ECG reveals a sinus rhythm with P SVC at [address] elevation. Cardiac Monitoring: Cardiac monitoring ordered by me: The patient was placed on continuous cardiac monitoring and observed. It revealed a sinus rhythm at 90 bpm. Medical decision rules: none Imaging studies: CT scan of the head reveals old appearing cortical infarct without acute hemorrhage or mass. Chest x-ray. Findings: A chest x-ray was performed and revealed no pneumothorax, effusion, infiltrate, pulmonary edema, free air under the diaphragm, or wide mediastinum. Impression: No acute disease. HPI: 69 year old Male arrives for evaluation of strokelike symptoms. Patient states that he woke up at 6 AM and felt normal. He has some residual left-sided weakness in his arm from an old stroke in 2000. Patient states he was trying to ambulate to the bathroom and was having trouble focusing. He felt dizzy and off balance. His coordination seem to be off. EMS was summoned. Patient was brought to the emergency department. Patient notes a fall 4 months ago with a compression fracture but no new falls since. Spinal surgery was not performed. Patient has no new surgeries. He is not on any anticoagulation. Pt denies LOC, headache, fevers, chills, diaphoresis, neck pain, chest pain, breathing difficulties, nausea, vomiting, abdominal pain, back pain, melena, hematochezia, urinary symptoms, numbness, lymphadenopathy, rash, or other complaints. PAST MEDICAL HISTORY: See Below, stroke PAST SURGICAL HISTORY: See Below, SOCIAL HISTORY: See Below, HOME MEDICATIONS: See Below ALLERGIES: See Below VITALS: See Below PHYSICAL EXAMINATION: GENERAL: Awake, alert, well-appearing, in no distress HENT: Normocephalic, atraumatic. Oropharynx unremarkable. EYES: Normal conjunctiva. Sclera non-icteric. Pupils equal round and reactive. He has difficulty with tracking for extraocular muscles. Patient has difficulty with looking inferiorly as well as superiorly. Patient also has a gaze preference to the right. NECK: Inspection normal. Non-tender. Supple. No nuchal rigidity. FROM. No masses. RESPIRATORY: Clear to auscultation. No wheezes. No rales. Normal respiratory effort. CARDIAC: Normal rate. Normal rhythm. No murmurs. No rubs. Extremities warm and well perfused. Pulses equal. No JVD. GI: Soft, non-distended. No tenderness to palpation. No rebound or guarding. No masses. RECTAL: Deferred. MUSCULOSKELETAL: Atraumatic. Chest examination reveals no tenderness. The back is symmetrical on inspection without obvious abnormality. There is no CVA tenderness to palpation. No joint edema. LOWER EXTREMITIES: Calves are equal size bilaterally and non-tender. No edema. No discoloration. NEURO: Normal sensorium. No sensory or deficits noted. Patient does have left review nurse strength weakness. Speech appears clear. Answering questions appropriate. Patient also has difficulty performing [id number] but does not have any drift. SKIN: No rash or jaundice noted. PROCEDURES: none CRITICAL CARE: I have personally spent 50 minutes of critical care time in the direct management of this patient. This includes bedside care, interpretation of diagnostic studies, and testing, discussion with consultants, patient, and family members, and other required patient management activities. These minutes are in excess of all separately billable procedures. OBSERVATION NOTE: none Past Med/Surg History Problem List Left spastic hemiparesis Diplopia Acute CVA (cerebrovascular accident) Stroke-like symptoms (Acute) Osteoporosis Abnormal CT scan, chest Benign essential hypertension Atherogenic dyslipidemia History of progressive weakness Hx of compression fracture of spine Muscle tension dysphonia Aspiration of food Closed wedge compression fracture of L4 vertebra with routine healing Abnormality of lung on chest x-ray Hypersomnolence Dyspnea Chronic hoarseness Closed L4 vertebral fracture (Acute) Fracture of right ankle, lateral malleolus Encounter for pre-operative examination Finger laceration (Acute) Compression fracture of L1 lumbar vertebra (Acute) Horizontal nystagmus (Acute) Shortness of breath (Acute) Vertigo (Acute) Medical History History of asthma Ambulatory dysfunction Hemiplegia History of CVA (cerebrovascular accident) Carotid artery stenosis s/p right carotid endarterectomy (~2000), Follows with Dr. Carpenter History of back pain Degenerative disc disease Stroke 1999, 2002 > residual left side weakness, on plavix Hypertension Hyperlipidemia Surgical History History of cardiac cath [place] > no stents History of carotid endarterectomy Right carotid ([facility] [place]) Family History Mother , age 74 of uncertain causes No problems noted. Father , age 71 of cancer, likely pancreatic Cancer Other No family history of adverse response to anesthesia Social History Smoking Status: Never smoker Tobacco Type: Smokeless Tobacco (Dip or Chew) Age Started Using Tobacco: 14; Age Quit Using Tobacco: 69; Smoking End Date: Stopped chewing (approximately 1 can per week) in September 2024; Second Hand Exposure: No; Do You Dip or Chew Tobacco: No (quit in september 2024); Tobacco Cessation Education Requested by Patient: No Hx Alcohol Use: Yes Alcohol type: beer Alcohol Intake Frequency: 2-4 x/Month Hx Substance Use: No Preferred Language: Peruvian Communication Ability: Effective Cleaning Supervisor Required: No Beliefs That Will Affect Care: None Current Living Situation: Spouse current occupational status: retired 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 Other Information That Helps Us Care for You: No Feels Safe at Home: Yes Safety Concerns: Feels Safe At This Time Assistive Devices: Walker Allergies Allergies Allergy/AdvReac Type Severity Reaction Status Date / Time No Known Allergies Allergy Unknown Verified 01/04/25 14:28 Home Meds Home Medications Medication Instructions Recorded Confirmed cholecalciferol (vitamin D3) 25 25 mcg PO QAM 08/18/21 01/04/25 mcg (1,000 unit) capsule (Vitamin D3) clopidogrel 75 mg tablet 75 mg PO QAM 08/18/21 01/04/25 ezetimibe 10 mg tablet 10 mg PO QAM 08/18/21 01/04/25 losartan 50 mg tablet 50 mg PO QAM 08/18/21 01/04/25 multivitamin 1 tab PO QAM 08/18/21 01/04/25 pravastatin 80 mg tablet 80 mg PO QAM 08/18/21 01/04/25 acetaminophen 650 mg 650 mg PO Q12H PRN 11/25/24 02/03/25 tablet,extended release (Tylenol 8 Hour) Results & Data (ED) Vital Signs Vital Signs - 24 hr 01/10/25 07:34 01/10/25 07:44 01/10/25 07:48 Pulse Rate Pulse Rate [Finger] Pulse Rate from SpO2 Sensor Respiratory Rate Respiratory Effort / Characteristics Respiratory Depth Blood Pressure 138/93 Blood Pressure [Left Arm] Blood Pressure Mean 106 Blood Pressure Mean [Left Arm] Pulse Oximetry Oxygen Delivery Method Room Air Sepsis Recent Fever Within 48 Hours No Sepsis New/Unexplained Change in Mental Status N/A Sepsis Action Taken by Nursing No Action Required 01/10/25 07:51 01/10/25 07:51 01/10/25 07:51 Pulse Rate 64 Pulse Rate [Finger] 66 Pulse Rate from SpO2 Sensor Respiratory Rate 14 23 Respiratory Effort / Characteristics Non-Labored Spontaneous Respiratory Depth Normal Blood Pressure Blood Pressure [Left Arm] Blood Pressure Mean Blood Pressure Mean [Left Arm] Pulse Oximetry 97 Oxygen Delivery Method Room Air Sepsis Recent Fever Within 48 Hours Sepsis New/Unexplained Change in Mental Status Sepsis Action Taken by Nursing 01/10/25 07:56 01/10/25 08:00 01/10/25 08:18 Pulse Rate 76 67 66 Pulse Rate [Finger] Pulse Rate from SpO2 Sensor 67 Respiratory Rate 19 24 Respiratory Effort / Characteristics Respiratory Depth Blood Pressure Blood Pressure [Left Arm] Blood Pressure Mean Blood Pressure Mean [Left Arm] Pulse Oximetry 97 Oxygen Delivery Method Sepsis Recent Fever Within 48 Hours Sepsis New/Unexplained Change in Mental Status Sepsis Action Taken by Nursing 01/10/25 08:21 01/10/25 08:24 01/10/25 08:30 Pulse Rate 67 71 Pulse Rate [Finger] Pulse Rate from SpO2 Sensor Respiratory Rate 23 21 Respiratory Effort / Characteristics Respiratory Depth Blood Pressure 129/97 Blood Pressure [Left Arm] Blood Pressure Mean 120 Blood Pressure Mean [Left Arm] Pulse Oximetry Oxygen Delivery Method Sepsis Recent Fever Within 48 Hours Sepsis New/Unexplained Change in Mental Status Sepsis Action Taken by Nursing 01/10/25 08:30 01/10/25 08:33 01/10/25 08:42 Pulse Rate 69 69 Pulse Rate [Finger] Pulse Rate from SpO2 Sensor 65 70 Respiratory Rate 18 19 Respiratory Effort / Characteristics Respiratory Depth Blood Pressure 129/97 Blood Pressure [Left Arm] Blood Pressure Mean 120 Blood Pressure Mean [Left Arm] Pulse Oximetry 95 95 Oxygen Delivery Method Sepsis Recent Fever Within 48 Hours Sepsis New/Unexplained Change in Mental Status Sepsis Action Taken by Nursing 01/10/25 08:45 01/10/25 08:45 01/10/25 08:45 Pulse Rate 67 Pulse Rate [Finger] Pulse Rate from SpO2 Sensor 71 Respiratory Rate 18 Respiratory Effort / Characteristics Respiratory Depth Blood Pressure 141/93 H 141/93 H Blood Pressure [Left Arm] Blood Pressure Mean 115 115 Blood Pressure Mean [Left Arm] Pulse Oximetry 95 Oxygen Delivery Method Sepsis Recent Fever Within 48 Hours Sepsis New/Unexplained Change in Mental Status Sepsis Action Taken by Nursing 01/10/25 08:45 01/10/25 08:45 01/10/25 08:45 Pulse Rate Pulse Rate [Finger] Pulse Rate from SpO2 Sensor Respiratory Rate Respiratory Effort / Characteristics Respiratory Depth Blood Pressure 141/93 H 141/93 H 141/93 H Blood Pressure [Left Arm] Blood Pressure Mean 115 115 115 Blood Pressure Mean [Left Arm] Pulse Oximetry Oxygen Delivery Method Sepsis Recent Fever Within 48 Hours Sepsis New/Unexplained Change in Mental Status Sepsis Action Taken by Nursing 01/10/25 08:45 01/10/25 08:51 01/10/25 08:53 Pulse Rate 74 Pulse Rate [Finger] 67 Pulse Rate from SpO2 Sensor 74 Respiratory Rate 15 Respiratory Effort / Characteristics Non-Labored Spontaneous Respiratory Depth Normal Blood Pressure 141/93 H Blood Pressure [Left Arm] 141/93 H Blood Pressure Mean 115 Blood Pressure Mean [Left Arm] 109 Pulse Oximetry 96 95 Oxygen Delivery Method Room Air Sepsis Recent Fever Within 48 Hours Sepsis New/Unexplained Change in Mental Status Sepsis Action Taken by Nursing 01/10/25 08:57 01/10/25 09:00 01/10/25 09:00 Pulse Rate 66 Pulse Rate [Finger] Pulse Rate from SpO2 Sensor 66 Respiratory Rate 20 Respiratory Effort / Characteristics Respiratory Depth Blood Pressure 135/105 H 135/105 H Blood Pressure [Left Arm] Blood Pressure Mean 109 109 Blood Pressure Mean [Left Arm] Pulse Oximetry 97 Oxygen Delivery Method Sepsis Recent Fever Within 48 Hours Sepsis New/Unexplained Change in Mental Status Sepsis Action Taken by Nursing 01/10/25 09:00 Pulse Rate Pulse Rate [Finger] Pulse Rate from SpO2 Sensor Respiratory Rate Respiratory Effort / Characteristics Respiratory Depth Blood Pressure 135/105 H Blood Pressure [Left Arm] Blood Pressure Mean 109 Blood Pressure Mean [Left Arm] Pulse Oximetry Oxygen Delivery Method Sepsis Recent Fever Within 48 Hours Sepsis New/Unexplained Change in Mental Status Sepsis Action Taken by Nursing Laboratory Data 01/10/25 07:51 01/10/25 07:51 Lab Results 01/10/25 01/10/25 Range/Units 07:47 07:51 WBC 5.85 (4.8-10.8) K/ul RBC 3.92 L (4.70-6.10) M/uL Hgb 11.7 L (14.0-18.0) g/dl Hct 34.9 L (42.0-52.0) % MCV 89.0 (80.0-100.0) fL MCH 29.8 (25.0-34.0) pg MCHC 33.5 (32.0-36.0) g/dL RDW Std Deviation 43.0 (36.4-46.3) fL RDW Coeff of Ag 13.3 (11.5-14.5) % Plt Count 152 (130-400) K/uL MPV 9.1 L (9.4-12.4) fL Immature Gran % (Auto) 0.3 % Neut % (Auto) 65.9 % Lymph % (Auto) 19.3 % [place] % (Auto) 11.3 % Eos % (Auto) 2.7 % Baso % (Auto) 0.5 % Neut # (Auto) 3.85 (1.40-6.50) K/uL Lymph # (Auto) 1.13 L (1.20-3.40) K/uL [place] # (Auto) 0.66 H (0.11-0.59) K/uL Eos # (Auto) 0.16 (0.00-0.50) K/uL Baso # (Auto) 0.03 (0.00-0.20) K/uL Immature Gran # (Auto) 0.02 (0.01-0.20) K/uL PT 10.4 (9.0-12.0) Seconds INR 1.0 (0.9-1.1) APTT 27 (21-31) Seconds PTT Ratio 1.0 Sodium 138 (136-145) mmol/L Potassium 4.1 (3.5-5.1) mmol/L Chloride 104 (98-107) mmol/L Carbon Dioxide 27 (21-32) mmol/L Anion Gap 7 (3-11) BUN 20 (6-23) mg/dl Creatinine 0.70 (0.6-1.4) mg/dl Est Cr Clr Drug Dosing 124.8 ml/min eGFR 99.12 BUN/Creatinine Ratio 28.6 H (10-20) Glucose 101 H (70-99(Fasting)) mg/dl POC Glucose 108 H (70-99) mg/dl Calcium 8.6 (8.6-10.3) mg/dl Magnesium 2.0 (1.7-2.4) mg/dl Total Bilirubin 0.4 (0.2-1.0) mg/dl AST 13 (13-39) U/L ALT 13 (7-52) U/L Alkaline Phosphatase 61 (34-104) U/L Troponin I High Sens 20.4 H (0-20) pg/ml Total Protein 6.0 (6.0-8.3) gm/dl Albumin 3.3 L (3.4-5.0) gm/dl Globulin 2.7 (2.5-4.0) gm/dl Albumin/Globulin Ratio 1.2 (0.9-2) Blood Type O Positive Antibody Screen NEGATIVE Administered Medications Miscellaneous (Icu Protocol For Hyperglycemia) 1 each N/A [facility] Stop: 01/12/25 11:29 Last Admin: 01/10/25 16:43 Dose: 1 each Documented By: Admin: 01/10/25 16:43 Dose: Not Given Documented By: DIANELYS Pravastatin Sodium (Pravastatin Sod 40 Mg Tab) 80 mg PO [facility] Stop: 02/09/25 09:40 Last Admin: 01/10/25 12:25 Dose: 80 mg Documented By: DIANELYS Discontinued Medications Tenecteplase 25 mg/ Syringe 5 mls @ 60 mls/min IV NOW ONE; Protocol Stop: 01/10/25 08:13 Last Admin: 01/10/25 08:22 Dose: 60 mls/min Documented By: MIKE Co-signed By: EDELMIRA Ioversol (Optiray 320 125ml) 120 ml IV ONCE ONE Stop: 01/10/25 07:38 Last Admin: 01/10/25 07:37 Dose: 120 ml Documented By: JYOTHI Miscellaneous (Stat Iv/Im) 1 each N/A NOW STA Stop: 01/10/25 08:03 Last Admin: 01/10/25 08:16 Dose: 1 each Documented By: MIKE Sodium Chloride (Sodium Chloride 0.9% 10ml Flush) 20 ml IV NOW STA Stop: 01/10/25 08:03 Last Admin: 01/10/25 08:21 Dose: 20 ml Documented By: MIKE Imaging Data Radiologist's Impression: Chest X-Ray 01/10/25 07:33 EXAM: XR chest 1V portable CLINICAL HISTORY: Neuro deficit, acute stroke suspected. TECHNIQUE: An X-ray image of the chest is obtained in PA projection. COMPARISON: CR dated 09/23/2024. FINDINGS: Pulmonary Parenchyma: Bilateral prominent bronchovascular/interstitial markings. No evidence of consolidation, collapse, or focal opacities. No pulmonary nodules are identified. No evidence of pleural effusion or pleural thickening. Heart and Mediastinum: Limited evaluation of the cardiac size given an AP projection. No mediastinal widening or masses. No hilar or mediastinal lymphadenopathy. Bony Thorax: The bony thorax appears intact without fractures or deformities. [Post CABG sternotomy] sutures seen in situ. Soft Tissues: Soft tissues overlying the chest wall are unremarkable. IMPRESSION: 1. Bilateral prominent bronchovascular/interstitial markings. Bronchitis/congestion. 2. Comparing the previous x-ray dated 09/23/2024 the findings remain stable. Electronically signed by Nadir Hernandez 01-10-2025 08:[address] 01/10/25 07:33 EXAM: CT head/brain wo con CLINICAL HISTORY: Neuro deficit, acute stroke suspected TECHNIQUE: Axial non-contrast CT scan of the brain was performed from the skull base to the high parietal region with coronal and sagittal reformats. One of the following dose reduction techniques were utilized for this exam: Automated exposure control, adjustment of the mA and/or kV according to patient size, use of iterative reconstruction. COMPARISON: 09/23/2024 CT. FINDINGS: Brain Parenchyma: Old lacunar infarct in the right cerebellar region. Prominent ventricular system and extra-axial CSF spaces suggesting senile changes. diffuse periventricular hypodensity suggesting chronic microvascular ischemic changes. Areas of hypodensity cortical and subcortical locations noted centrum semiovale of both frontal parietal regions likely representing old ischemic insult. Ill-defined subcortical area of hypodensity noted in the left occipital region likely representing old insult. No evidence of hemorrhage, or mass effect. Ventricular System: Ventricles are normal in size and configuration. No evidence of hydrocephalus or ventricular enlargement. Subarachnoid Spaces: Normal sulci and cisterns. No evidence of subarachnoid hemorrhage or extra-axial fluid collections. Cerebellum and Brainstem: Normal size and signal. No masses, lesions, or areas of abnormal signal. Orbits: Normal appearance of the globes, optic nerves, and extraocular muscles. No evidence of orbital masses or abnormal signals. Sinuses: Clear paranasal sinuses. No evidence of sinusitis or mucosal thickening. Mastoid Air Cells: Clear mastoid air cells. No evidence of mastoiditis. Skull: Normal skull morphology. IMPRESSION: 1. Senile changes with chronic microvascular ischemic changes. 2. Stable centrum semiovale of both frontal-parietal regions old ischemic insults, However,M RI DWI is advised to exclude the possibility of acute ischemic insult on top. 3. Stable left occipital old ischemic insult. 4. Compared to prior study no detected interval changes. Electronically signed by Nadir Hernandez 01-10-2025 08:11 AM Head CTA 01/10/25 07:33 EXAM: CT angio head w con CLINICAL HISTORY: Neuro deficit, acute stroke suspected. TECHNIQUE: CT angiography of the head was performed following the intravenous administration of 120ml Opitray-320mg/ml intravenous contrast material. Contiguous axial images were obtained from the base of the skull to the vertex. Coronal and sagittal reformatted images were also reviewed. One of these 3D techniques was utilized: Maximum Intensity Pixel (MIP), 3D Reconstructed Images, Volume Rendered Images, Surface Shaded Rendering. One of the following dose-reduction techniques was utilized for this exam. Automated exposure control, adjustment of the mA and/or kV according to patient size, and use of iterative reconstruction. COMPARISON: No previous studies are available for comparison. FINDINGS: Intracranial Arteries: The intracranial arteries, including the anterior cerebral arteries, middle cerebral arteries, posterior cerebral arteries, basilar artery, and vertebral arteries, are all patent without evidence of significant stenosis, aneurysm, or dissection. There is no evidence of vascular malformations. [place]: The [place] is intact with no anatomical variations or abnormalities noted. All segments are well-visualized and normal in appearance. Mildly attenuated opercular branches Of both middle cerebral arteries with no definite significant stenosis or thrombosis Venous System: The visualized portions of the venous system, including the dural venous sinuses, are patent with no evidence of thrombosis. Bones: The bony structures of the skull are intact without evidence of fracture or destructive lesions. Soft Tissues: The visualized soft tissues of the head are unremarkable. Additional Findings: Attenuated right vertebral artery likely normal variant IMPRESSION: 1. No evidence of acute thrombosis, significant stenosis nor aneurysms in the intracranial arteries. 2. Mildly attenuated opercular branches of both middle cerebral arteries with no definite significant stenosis or thrombosis. 3. Attenuated right vertebral artery likely normal variant. Electronically signed by Nadir Hernandez 01-10-2025 08:22 AM Neck CTA 01/10/25 07:33 EXAM: CT angio neck with con CLINICAL HISTORY: Neuro deficit, acute stroke suspected TECHNIQUE: CT angiography of the neck was performed following the intravenous administration of 120ml Opitray-320mg/ml of contrast material. Coronal and sagittal reformatted images were also reviewed. One of the following dose reduction techniques was utilized for this exam. Automated exposure control, adjustment of the mA and/or kV according to patient size, and use of iterative reconstruction. One of these 3D techniques was utilized: Maximum Intensity Pixel (MIP), 3D Reconstructed Images, Volume Rendered Images, Surface Shaded Rendering. COMPARISON: No previous studies are available for comparison. FINDINGS: Carotid Arteries: Mild atherosclerotic changes of both carotid system. The common, internal, and external carotid arteries are patent bilaterally with no evidence of significant stenosis, aneurysm, or dissection. There is no evidence of atherosclerotic plaque causing significant luminal narrowing. Vertebral Arteries: The vertebral arteries are patent bilaterally with no evidence of significant stenosis, aneurysm, or dissection. Thyroid Gland: The thyroid gland is normal in size and appearance with no focal lesions. Lymph Nodes: There is no evidence of significant lymphadenopathy in the neck. Soft Tissues: The soft tissues of the neck are unremarkable with no evidence of masses or abnormal collections. Additional Findings: Retropharyngeal course of the left common carotid artery. IMPRESSION: 1. No evidence of significant stenosis, aneurysm, or dissection. 2. Retropharyngeal course of the left common carotid artery. Electronically signed by Nadir Hernandez 01-10-2025 08:26 AM Discharge Plan Visit Data Chief Complaint: Stroke Alert Stated Complaint: STROKE ALERT ED Provider: Gamal Chapman Discharge Problem: Stroke-like symptoms Patient Disposition: Admitted As Inpatient Discharge Instructions Interventions: ED Discharge Assessment Last Done: 01/10/25 09:19
--- NOTE | 2025-01-10 08:52 | History & Physical Report ---
Date of Service January 10, 2025 Assessment & Plan (1) Stroke-like symptoms: Plan: 69 y/o with HTN, HLD, previous strokes in 2000, 2002 presented as a stroke alert with symptoms of disturbed vision, double vision, feeling off balance which started today at 6:30 AM while he was up to go to the bathroom. He did have right gaze preference, abnormal eye movements, ataxia with HTS on exam. [place] [facility] consulted and he was given TNK in the ED. Was on plavix, p ravastatin. -Ct head with old L occipital and bilateral frontotemporal infarcts in centrum semiovale, no hemorrhage -CTA head/neck with no LVO or significant stenoses -CXR by my interpretation is clear with median sternotomy wires present #Probable stroke s/p TNK -monitor in ICU 24h post TNK per protocol - neuro checks, control BP<180/105 with IV labetalol 10 mg PRN, ICU insulin protocol, dysphagia screen -Brain MRI -TTE with bubble -lipid profile, TSH, A1c -investigate whether he can tolerate a high intensity statin, my assumption is that it has been tried before, continue pravastatin for now -consulted neurology Dr. Hernández - reviewed recommendations in his notes - start ASA + clopidogrel 24h post-TPA, DAPT for 21d then clopidogrel alone -consulted critical care - reviewed recommendations in his notes -head CT 24h post TNK -PT/OT/ST consults (2) Benign essential hypertension: Plan: losartan hold meds for permissive hypertension goal MAP 95-100 for stroke (3) Dyspnea: Plan: Dyspnea and progressive weakness Has recently been evaluated for dyspnea, including pulmonary and cardiology - only some air trapping on PFTs. Has had progressive weakness. Sniff test, CK, Jacque-[address] Yoo, has neuro appointment 03/[address] Evans -reviewed sniff test and diaphragms moved symmetrically but less than normal excursion (only 1 rib space vs normal >=2) -CK and anti-Jacque-1 were normal -TSH, vitamin B12 and empirically replace B1, check ESR and CRP, phos (4) Atherogenic dyslipidemia: Plan: Hx carotid stenosis Will be on DAPT, ASA, Plavix, statin Plan Median sternotomy on CXR - CABG or valve repair? obtain further history Osteoporosis followed in rheumatology clinic - history of five compression fractures Gait disturbance, LE weakness - see above, per notes he uses wheelchair most of the time. He lives with his , they have an entry ramp and no stairs Trivial troponin elevation to 22.5 related to acute stroke DVT ppx - SCDs, no anticoagulants x 24h History of Present Illness Chief Complaint: vision problem, double vision, off balance Primary Care Provider: Alireza Ramírez MD 69 y/o man with HTN, HLD and previous strokes resultant left sided weakness, came in as stroke alert to ED and given TNK. He had a stroke in 2000 treated at [facility] - perhaps got TPA - has persistent L sided weakness from this. He was in his USOH until 6:30 AM he got up to go to bathroom, developed neurological symptoms: vision couldn't focus, later some double vision, off balance / coordination, L weakness seemed baseline In the ED his initial exam notable for R gaze preference, could maybe get past midline, double vision, trouble looking up and down, trouble with HTS [place] tel[facility]roke consulted - advised TNK, which was given. ICU consulted for post TNK admission Currently he is doing better with his vision - no double vision, R gaze preference improved, and with effort and second trial can look all the way to the left. L facial droop and not sure if this is baseline or old. LUE and LLE weakness present. He has been taking clopidogrel (last dose yesterday AM) and pravastatin. Has recently been evaluated for dyspnea, including pulmonary and cardiology - only some air trapping on PFTs. Has had progressive weakness. Sniff test, CK, Jacque-[address] Yoo, has neuro appointment 03/[address] Evans Allergies Allergy/AdvReac Type Severity Reaction Status Date / Time No Known Allergies Allergy Unknown Verified 01/04/25 14:28 Home Medications Medication Instructions Recorded Confirmed Type cholecalciferol (vitamin D3) 25 25 mcg PO QAM 08/18/21 01/04/25 History mcg (1,000 unit) capsule (Vitamin D3) clopidogrel 75 mg tablet 75 mg PO QAM 08/18/21 01/04/25 History ezetimibe 10 mg tablet 10 mg PO QAM 08/18/21 01/04/25 History losartan 50 mg tablet 50 mg PO QAM 08/18/21 01/04/25 History multivitamin 1 tab PO QAM 08/18/21 01/04/25 History pravastatin 80 mg tablet 80 mg PO QAM 08/18/21 01/04/25 History acetaminophen 650 mg 650 mg PO Q12H PRN 10/26/24 01/04/25 History tablet,extended release (Tylenol 8 Hour) Past Med/Surg History Problem List Left spastic hemiparesis Diplopia Acute CVA (cerebrovascular accident) Stroke-like symptoms (Acute) Osteoporosis Abnormal CT scan, chest Benign essential hypertension Atherogenic dyslipidemia History of progressive weakness Hx of compression fracture of spine Muscle tension dysphonia Aspiration of food Closed wedge compression fracture of L4 vertebra with routine healing Abnormality of lung on chest x-ray Hypersomnolence Dyspnea Chronic hoarseness Closed L4 vertebral fracture (Acute) Fracture of right ankle, lateral malleolus Encounter for pre-operative examination Finger laceration (Acute) Compression fracture of L1 lumbar vertebra (Acute) Horizontal nystagmus (Acute) Shortness of breath (Acute) Vertigo (Acute) Medical History History of asthma Ambulatory dysfunction Hemiplegia History of CVA (cerebrovascular accident) Carotid artery stenosis s/p right carotid endarterectomy (~2000), Follows with Dr. Carpenter History of back pain Degenerative disc disease Stroke 1999, 2002 > residual left side weakness, on plavix Hypertension Hyperlipidemia Surgical History [place] [place] no stents History of carotid endarterectomy Right carotid [place] [place] Family History Mother , age 74 of uncertain causes No problems noted. Father , age 71 of cancer, likely pancreatic Cancer Other No family history of adverse response to anesthesia Social History Smoking Status: Never smoker Tobacco Type: Smokeless Tobacco (Dip or Chew) Age Started Using Tobacco: 14; Age Quit Using Tobacco: 69; Smoking End Date: Stopped chewing (approximately 1 can per week) in September 2024; Second Hand Exposure: No; Do You Dip or Chew Tobacco: No (quit in september 2024); Tobacco Cessation Education Requested by Patient: No Hx Alcohol Use: Yes Alcohol type: beer Alcohol Intake Frequency: 2-4 x/Month Hx Substance Use: No Preferred Language: [place] Citizen Communication Ability: Effective Geoscience Specialist Required: No Beliefs That Will Affect Care: None Current Living Situation: Spouse current occupational status: retired 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 Clear to auscultation bilaterally. No RRW Heart: Regular rate and rhythm, no murmurs. No JVD Abdomen: Soft, nontender, nondistended. Bowel sounds present. Extremities: Warm, dry, well-perfused. No extremity edema. Neuro: Alert and oriented x 4, left facial droop, mild right gaze preference, EOMI however he had to concentrate and do a second attempt to look all the way to the left, visual fox full to confrontation, tongue mildly deviates to right, left upper extremity strength is 4/5, right upper extremity strength is 5/5, left lower extremity strength is 4+/5 at hip flexor and 34/5 with dorsiflexion, plantarflexion is 5 out of 5. right lower extremity strength is 5/5 everywhere except for hip flexor where he is 4 -/5. coordination exam is difficult to interpret - symmetric but mildly abnormal both sides for FNF and HTS Psych: Normal affect and behavior Results & Data Results & Data Vital Signs (Past 12 Hours) Vital Signs Pulse Pulse Resp BP Pulse Ox O2 Del Method 01/10/25 08:33 69 18 95 01/10/25 08:30 129/97 01/10/25 08:30 129/97 01/10/25 08:24 71 21 01/10/25 08:21 67 23 01/10/25 08:18 66 24 01/10/25 08:00 67 19 97 01/10/25 07:56 76 01/10/25 07:51 64 23 01/10/25 07:51 97 Room Air 01/10/25 07:51 66 14 01/10/25 07:48 Room Air 01/10/25 07:44 138/93 Laboratory Results 01/10/25 01/10/25 Range/Units 07:51 07:47 WBC 5.85 (4.8-10.8) K/ul RBC 3.92 L (4.70-6.10) M/uL Hgb 11.7 L (14.0-18.0) g/dl Hct 34.9 L (42.0-52.0) % MCV 89.0 (80.0-100.0) fL MCH 29.8 (25.0-34.0) pg MCHC 33.5 (32.0-36.0) g/dL RDW Std Deviation 43.0 (36.4-46.3) fL RDW Coeff of Ag 13.3 (11.5-14.5) % Plt Count 152 (130-400) K/uL MPV 9.1 L (9.4-12.4) fL Immature Gran % (Auto) 0.3 % Neut % (Auto) 65.9 % Lymph % (Auto) 19.3 % Harper % (Auto) 11.3 % Eos % (Auto) 2.7 % Baso % (Auto) 0.5 % Neut # (Auto) 3.85 (1.40-6.50) K/uL Lymph # (Auto) 1.13 L (1.20-3.40) K/uL Harper # (Auto) 0.66 H (0.11-0.59) K/uL Eos # (Auto) 0.16 (0.00-0.50) K/uL Baso # (Auto) 0.03 (0.00-0.20) K/uL Immature Gran # (Auto) 0.02 (0.01-0.20) K/uL PT 10.4 (9.0-12.0) Seconds INR 1.0 (0.9-1.1) APTT 27 (21-31) Seconds PTT Ratio 1.0 Sodium 138 (136-145) mmol/L Potassium 4.1 (3.5-5.1) mmol/L Chloride 104 (98-107) mmol/L Carbon Dioxide 27 (21-32) mmol/L Anion Gap 7 (3-11) BUN 20 (6-23) mg/dl Creatinine 0.70 (0.6-1.4) mg/dl Est Cr Clr Drug Dosing 124.8 ml/min eGFR 99.12 BUN/Creatinine Ratio 28.6 H (10-20) Glucose 101 H (70-99(Fasting)) mg/dl POC Glucose 108 H (70-99) mg/dl Calcium 8.6 (8.6-10.3) mg/dl Magnesium 2.0 (1.7-2.4) mg/dl Total Bilirubin 0.4 (0.2-1.0) mg/dl AST 13 (13-39) U/L ALT 13 (7-52) U/L Alkaline Phosphatase 61 (34-104) U/L Troponin I High Sens 20.4 H (0-20) pg/ml Total Protein 6.0 (6.0-8.3) gm/dl Albumin 3.3 L (3.4-5.0) gm/dl Globulin 2.7 (2.5-4.0) gm/dl Albumin/Globulin Ratio 1.2 (0.9-2) Blood Type O Positive Antibody Screen NEGATIVE Diagnostic Findings Chest X-Ray 01/10/25 07:33 EXAM: XR chest 1V portable CLINICAL HISTORY: Neuro deficit, acute stroke suspected. TECHNIQUE: An X-ray image of the chest is obtained in PA projection. COMPARISON: CR dated 09/23/2024. FINDINGS: Pulmonary Parenchyma: Bilateral prominent bronchovascular/interstitial markings. No evidence of consolidation, collapse, or focal opacities. No pulmonary nodules are identified. No evidence of pleural effusion or pleural thickening. Heart and Mediastinum: Limited evaluation of the cardiac size given an AP projection. No mediastinal widening or masses. No hilar or mediastinal lymphadenopathy. Bony Thorax: The bony thorax appears intact without fractures or deformities. [Post CABG sternotomy] sutures seen in situ. Soft Tissues: Soft tissues overlying the chest wall are unremarkable. IMPRESSION: 1. Bilateral prominent bronchovascular/interstitial markings. Bronchitis/congestion. 2. Comparing the previous x-ray dated 09/23/2024 the findings remain stable. Electronically signed by Nadir Hernandez 01-10-2025 08:[address] 01/10/25 07:33 EXAM: CT head/brain wo con CLINICAL HISTORY: Neuro deficit, acute stroke suspected TECHNIQUE: Axial non-contrast CT scan of the brain was performed from the skull base to the high parietal region with coronal and sagittal reformats. One of the following dose reduction techniques were utilized for this exam: Automated exposure control, adjustment of the mA and/or kV according to patient size, use of iterative reconstruction. COMPARISON: 09/23/2024 CT. FINDINGS: Brain Parenchyma: Old lacunar infarct in the right cerebellar region. Prominent ventricular system and extra-axial CSF spaces suggesting senile changes. diffuse periventricular hypodensity suggesting chronic microvascular ischemic changes. Areas of hypodensity cortical and subcortical locations noted centrum semiovale of both frontal parietal regions likely representing old ischemic insult. Ill-defined subcortical area of hypodensity noted in the left occipital region likely representing old insult. No evidence of hemorrhage, or mass effect. Ventricular System: Ventricles are normal in size and configuration. No evidence of hydrocephalus or ventricular enlargement. Subarachnoid Spaces: Normal sulci and cisterns. No evidence of subarachnoid hemorrhage or extra-axial fluid collections. Cerebellum and Brainstem: Normal size and signal. No masses, lesions, or areas of abnormal signal. Orbits: Normal appearance of the globes, optic nerves, and extraocular muscles. No evidence of orbital masses or abnormal signals. Sinuses: Clear paranasal sinuses. No evidence of sinusitis or mucosal thickening. Mastoid Air Cells: Clear mastoid air cells. No evidence of mastoiditis. Skull: Normal skull morphology. IMPRESSION: 1. Senile changes with chronic microvascular ischemic changes. 2. Stable centrum semiovale of both frontal-parietal regions old ischemic insults, However,M RI DWI is advised to exclude the possibility of acute ischemic insult on top. 3. Stable left occipital old ischemic insult. 4. Compared to prior study no detected interval changes. Electronically signed by Nadir Hernandez 01-10-2025 08:11 AM Head CTA 01/10/25 07:33 EXAM: CT angio head w con CLINICAL HISTORY: Neuro deficit, acute stroke suspected. TECHNIQUE: CT angiography of the head was performed following the intravenous administration of 120ml Opitray-320mg/ml intravenous contrast material. Contiguous axial images were obtained from the base of the skull to the vertex. Coronal and sagittal reformatted images were also reviewed. One of these 3D techniques was utilized: Maximum Intensity Pixel (MIP), 3D Reconstructed Images, Volume Rendered Images, Surface Shaded Rendering. One of the following dose-reduction techniques was utilized for this exam. Automated exposure control, adjustment of the mA and/or kV according to patient size, and use of iterative reconstruction. COMPARISON: No previous studies are available for comparison. FINDINGS: Intracranial Arteries: The intracranial arteries, including the anterior cerebral arteries, middle cerebral arteries, posterior cerebral arteries, basilar artery, and vertebral arteries, are all patent without evidence of significant stenosis, aneurysm, or dissection. There is no evidence of vascular malformations. [place]: The [place] is intact with no anatomical variations or abnormalities noted. All segments are well-visualized and normal in appearance. Mildly attenuated opercular branches Of both middle cerebral arteries with no definite significant stenosis or thrombosis Venous System: The visualized portions of the venous system, including the dural venous sinuses, are patent with no evidence of thrombosis. Bones: The bony structures of the skull are intact without evidence of fracture or destructive lesions. Soft Tissues: The visualized soft tissues of the head are unremarkable. Additional Findings: Attenuated right vertebral artery likely normal variant IMPRESSION: 1. No evidence of acute thrombosis, significant stenosis nor aneurysms in the intracranial arteries. 2. Mildly attenuated opercular branches of both middle cerebral arteries with no definite significant stenosis or thrombosis. 3. Attenuated right vertebral artery likely normal variant. Electronically signed by Nadir Hernandez 01-10-2025 08:22 AM Neck CTA 01/10/25 07:33 EXAM: CT angio neck with con CLINICAL HISTORY: Neuro deficit, acute stroke suspected TECHNIQUE: CT angiography of the neck was performed following the intravenous administration of 120ml Opitray-320mg/ml of contrast material. Coronal and sagittal reformatted images were also reviewed. One of the following dose reduction techniques was utilized for this exam. Automated exposure control, adjustment of the mA and/or kV according to patient size, and use of iterative reconstruction. One of these 3D techniques was utilized: Maximum Intensity Pixel (MIP), 3D Reconstructed Images, Volume Rendered Images, Surface Shaded Rendering. COMPARISON: No previous studies are available for comparison. FINDINGS: Carotid Arteries: Mild atherosclerotic changes of both carotid system. The common, internal, and external carotid arteries are patent bilaterally with no evidence of significant stenosis, aneurysm, or dissection. There is no evidence of atherosclerotic plaque causing significant luminal narrowing. Vertebral Arteries: The vertebral arteries are patent bilaterally with no evidence of significant stenosis, aneurysm, or dissection. Thyroid Gland: The thyroid gland is normal in size and appearance with no focal lesions. Lymph Nodes: There is no evidence of significant lymphadenopathy in the neck. Soft Tissues: The soft tissues of the neck are unremarkable with no evidence of masses or abnormal collections. Additional Findings: Retropharyngeal course of the left common carotid artery. IMPRESSION: 1. No evidence of significant stenosis, aneurysm, or dissection. 2. Retropharyngeal course of the left common carotid artery. Electronically signed by Nadir Hernandez 01-10-2025 08:26 AM Medications Administered TNK PG Care Time/CCT Total # of Minutes Spent Total Time Spent with Patient: Total time spent is greater than 50% in coordination of care (as documented) at patient's floor/unit and/or counseling patient: Coding Level of Care Code 71126 INT INP/OBS CARE 3/75MIN Diagnoses Stroke-like symptoms R29.90 Benign essential hypertension I10 Dyspnea R06.00 Atherogenic dyslipidemia E78.5
--- NOTE | 2025-01-10 09:03 | Critical Care Consultation ---
Date of Consultation January 10, 2025 Assessment & Plan (1) Stroke-like symptoms: Neuro - [facility] ICU: Negative RASS GOAL 0 Q1H neurologic checks per protocol Repeat CTH at 24 hours post-TNK or sooner if neurologic change Lipid panel, A1c pending BP < 180/105 Cardiac - No acute conerns MAP goal > 65mmHg TTE with bubble study pending Respiratory - SpO2 > 92% IS/Flutter GI - Diet: Advance BERLIN pending dysphagia screen RENAL/LYTES - Replete electrolytes as indicated Bladder scan PRN. Avoid straight cath x24 hours ENDO - BG 140-180 per SCC guidelines ISS if needed while inpatient HEME/ONC/OTHER - S/p TNK LINES/TUBES/DRAINS - PIV x2 DVT PROPHYLAXIS - Held s/p TNK (2) Benign essential hypertension: History of Present Illness Reason for Consultation: CVA status post TNKase History of Present Illness Patient is a 69-year-old male with a significant past medical history of prior CVA approximately 20 years ago who presented to the ED today for visual di sturbances. He was last normal at approximately 6 AM underwent a telestroke evaluation was was administered TNKase at 0 822 per report from the emergency department. Allergies Allergy/AdvReac Type Severity Reaction Status Date / Time No Known Allergies Allergy Unknown Verified 01/04/25 14:28 Home Medications Medication Instructions Recorded Confirmed Type cholecalciferol (vitamin D3) 25 25 mcg PO QAM 08/18/21 01/04/25 History mcg (1,000 unit) capsule (Vitamin D3) clopidogrel 75 mg tablet 75 mg PO QAM 08/18/21 01/04/25 History ezetimibe 10 mg tablet 10 mg PO QAM 08/18/21 01/04/25 History losartan 50 mg tablet 50 mg PO QAM 08/18/21 01/04/25 History multivitamin 1 tab PO QAM 08/18/21 01/04/25 History pravastatin 80 mg tablet 80 mg PO QAM 08/18/21 01/04/25 History acetaminophen 650 mg 650 mg PO Q12H PRN 10/26/24 01/04/25 History tablet,extended release (Tylenol 8 Hour) Patient History Medical History History of asthma Ambulatory dysfunction Hemiplegia History of CVA (cerebrovascular accident) Carotid artery stenosis s/p right carotid endarterectomy (~2000), Follows with Dr. Carpenter History of back pain Degenerative disc disease Stroke 1999, 2002 > residual left side weakness, on plavix Hypertension Hyperlipidemia Surgical History History of cardiac cath ~1999 ([facility] [place]) > no stents History of carotid endarterectomy Right carotid ([facility] [place]/~2000) Family History Other No family history of adverse response to anesthesia Social History Smoking Status: Unknown if ever smoked Second Hand Exposure: No; Do You Dip or Chew Tobacco: No; Hx Alcohol Use: Yes Alcohol type: beer Hx Substance Use: No Preferred Language: Micronesian Communication Ability: Effective Hand Winder Required: No Beliefs That Will Affect Care: None Current Living Situation: Spouse Feels Safe at Home: Yes Assistive Devices: Bedside Commode and Walker Results & Data Results & Data Vital Signs (Past 12 Hours) Vital Signs Pulse Pulse Resp BP BP Pulse Ox O2 Del Method 01/10/25 08:53 67 15 141/93 H 95 Room Air 01/10/25 08:45 141/93 H 01/10/25 08:45 141/93 H 01/10/25 08:45 141/93 H 01/10/25 08:45 67 18 95 01/10/25 08:42 69 19 95 01/10/25 08:33 69 18 95 01/10/25 08:30 129/97 01/10/25 08:30 129/97 01/10/25 08:24 71 21 01/10/25 08:21 67 23 01/10/25 08:18 66 24 01/10/25 08:00 67 19 97 01/10/25 07:56 76 01/10/25 07:51 64 23 01/10/25 07:51 97 Room Air 01/10/25 07:51 66 14 01/10/25 07:48 Room Air 01/10/25 07:44 138/93 Critical Care Results & Data Vital Signs (Past 12 Hours) Vital Signs Pulse Pulse Resp BP BP Pulse Ox O2 Del Method 01/10/25 08:53 67 15 141/93 H 95 Room Air 01/10/25 08:45 141/93 H 01/10/25 08:45 141/93 H 01/10/25 08:45 141/93 H 01/10/25 08:45 67 18 95 01/10/25 08:42 69 19 95 01/10/25 08:33 69 18 95 01/10/25 08:30 129/97 01/10/25 08:30 129/97 01/10/25 08:24 71 21 01/10/25 08:21 67 23 01/10/25 08:18 66 24 01/10/25 08:00 67 19 97 01/10/25 07:56 76 01/10/25 07:51 64 23 01/10/25 07:51 97 Room Air 01/10/25 07:51 66 14 01/10/25 07:48 Room Air 01/10/25 07:44 138/93 Lab & Micro Results (Past 24 Hours) RBC 3.92 M/uL (4.70-6.10) L 01/10/25 WBC 5.85 K/ul (4.8-10.8) 01/10/25 Hgb 11.7 g/dl (14.0-18.0) L 01/10/25 Hct 34.9 % (42.0-52.0) L 01/10/25 MCV 89.0 fL (80.0-100.0) 01/10/25 MCH 29.8 pg (25.0-34.0) 01/10/25 MCHC 33.5 g/dL (32.0-36.0) 01/10/25 RDW Standard Deviation 43.0 fL (36.4-46.3) 01/10/25 RDW Coefficient of Variation 13.3 % (11.5-14.5) 01/10/25 Plt Count 152 K/uL (130-400) 01/10/25 MPV 9.1 fL (9.4-12.4) L 01/10/25 Neutrophils (%) (Auto) 65.9 % 01/10/25 Lymphocytes (%) (Auto) 19.3 % 01/10/25 Monocytes # (Auto) 0.66 K/uL (0.11-0.59) H 01/10/25 Eosinophils # (Auto) 0.16 K/uL (0.00-0.50) 01/10/25 Immature Granulocyte % (Auto) 0.3 % 01/10/25 Neutrophils # (Auto) 3.85 K/uL (1.40-6.50) 01/10/25 Lymphocytes # (Auto) 1.13 K/uL (1.20-3.40) L 01/10/25 Monocytes # (Auto) 0.66 K/uL (0.11-0.59) H 01/10/25 Eosinophils # (Auto) 0.16 K/uL (0.00-0.50) 01/10/25 Basophils # (Auto) 0.03 K/uL (0.00-0.20) 01/10/25 Immature Granulocyte # (Auto) 0.02 K/uL (0.01-0.20) 5 Na 138 mmol/L (136-145) 01/10/25 K 4.1 mmol/L (3.5-5.1) 01/10/25 Cl 104 mmol/L (98-107) 01/10/25 CO2 27 mmol/L (21-32) 01/10/25 Anion Gap 7 (3-11) 01/10/25 BUN 20 mg/dl (6-23) 01/10/25 Creatinine 0.70 mg/dl (0.6-1.4) 01/10/25 BUN/Creatinine Ratio 28.6 (10-20) H 01/10/25 Glu 101 mg/dl (70-99(Fasting)) H 01/10/25 Ca 8.6 mg/dl (8.6-10.3) 01/10/25 Total Bilirubin 0.4 mg/dl (0.2-1.0) 01/10/25 AST 13 U/L (13-39) 01/10/25 ALT 13 U/L (7-52) 01/10/25 Alkaline Phosphatase 61 U/L (34-104) 01/10/25 TP 6.0 gm/dl (6.0-8.3) 01/10/25 Albumin 3.3 gm/dl (3.4-5.0) L 01/10/25 Globulin 2.7 gm/dl (2.5-4.0) 01/10/25 Albumin/Globulin Ratio 1.2 (0.9-2) 01/10/25 Mg 2.0 mg/dl (1.7-2.4) 01/10/25 07:51 Calcium Level 8.6 mg/dl (8.6-10.3) 01/10/25 07:51 Prothromb Time International Ratio 1.0 (0.9-1.1) 01/10/25 07:5 1 Diagnostic Findings (Past 24 Hours) Chest X-Ray 01/10/25 07:33 EXAM: XR chest 1V portable CLINICAL HISTORY: Neuro deficit, acute stroke suspected. TECHNIQUE: An X-ray image of the chest is obtained in PA projection. COMPARISON: CR dated 09/23/2024. FINDINGS: Pulmonary Parenchyma: Bilateral prominent bronchovascular/interstitial markings. No evidence of consolidation, collapse, or focal opacities. No pulmonary nodules are identified. No evidence of pleural effusion or pleural thickening. Heart and Mediastinum: Limited evaluation of the cardiac size given an AP projection. No mediastinal widening or masses. No hilar or mediastinal lymphadenopathy. Bony Thorax: The bony thorax appears intact without fractures or deformities. [Post CABG sternotomy] sutures seen in situ. Soft Tissues: Soft tissues overlying the chest wall are unremarkable. IMPRESSION: 1. Bilateral prominent bronchovascular/interstitial markings. Bronchitis/congestion. 2. Comparing the previous x-ray dated 09/23/2024 the findings remain stable. Electronically signed by Nadir Hernandez 01-10-2025 08:[address] 01/10/25 07:33 EXAM: CT head/brain wo con CLINICAL HISTORY: Neuro deficit, acute stroke suspected TECHNIQUE: Axial non-contrast CT scan of the brain was performed from the skull base to the high parietal region with coronal and sagittal reformats. One of the following dose reduction techniques were utilized for this exam: Automated exposure control, adjustment of the mA and/or kV according to patient size, use of iterative reconstruction. COMPARISON: 09/23/2024 CT. FINDINGS: Brain Parenchyma: Old lacunar infarct in the right cerebellar region. Prominent ventricular system and extra-axial CSF spaces suggesting senile changes. diffuse periventricular hypodensity suggesting chronic microvascular ischemic changes. Areas of hypodensity cortical and subcortical locations noted centrum semiovale of both frontal parietal regions likely representing old ischemic insult. Ill-defined subcortical area of hypodensity noted in the left occipital region likely representing old insult. No evidence of hemorrhage, or mass effect. Ventricular System: Ventricles are normal in size and configuration. No evidence of hydrocephalus or ventricular enlargement. Subarachnoid Spaces: Normal sulci and cisterns. No evidence of subarachnoid hemorrhage or extra-axial fluid collections. Cerebellum and Brainstem: Normal size and signal. No masses, lesions, or areas of abnormal signal. Orbits: Normal appearance of the globes, optic nerves, and extraocular muscles. No evidence of orbital masses or abnormal signals. Sinuses: Clear paranasal sinuses. No evidence of sinusitis or mucosal thickening. Mastoid Air Cells: Clear mastoid air cells. No evidence of mastoiditis. Skull: Normal skull morphology. IMPRESSION: 1. Senile changes with chronic microvascular ischemic changes. 2. Stable centrum semiovale of both frontal-parietal regions old ischemic insults, However,M RI DWI is advised to exclude the possibility of acute ischemic insult on top. 3. Stable left occipital old ischemic insult. 4. Compared to prior study no detected interval changes. Electronically signed by Nadir Hernandez 01-10-2025 08:11 AM Head CTA 01/10/25 07:33 EXAM: CT angio head w con CLINICAL HISTORY: Neuro deficit, acute stroke suspected. TECHNIQUE: CT angiography of the head was performed following the intravenous administration of 120ml Opitray-320mg/ml intravenous contrast material. Contiguous axial images were obtained from the base of the skull to the vertex. Coronal and sagittal reformatted images were also reviewed. One of these 3D techniques was utilized: Maximum Intensity Pixel (MIP), 3D Reconstructed Images, Volume Rendered Images, Surface Shaded Rendering. One of the following dose-reduction techniques was utilized for this exam. Automated exposure control, adjustment of the mA and/or kV according to patient size, and use of iterative reconstruction. COMPARISON: No previous studies are available for comparison. FINDINGS: Intracranial Arteries: The intracranial arteries, including the anterior cerebral arteries, middle cerebral arteries, posterior cerebral arteries, basilar artery, and vertebral arteries, are all patent without evidence of significant stenosis, aneurysm, or dissection. There is no evidence of vascular malformations. [place]: The [place] is intact with no anatomical variations or abnormalities noted. All segments are well-visualized and normal in appearance. Mildly attenuated opercular branches Of both middle cerebral arteries with no definite significant stenosis or thrombosis Venous System: The visualized portions of the venous system, including the dural venous sinuses, are patent with no evidence of thrombosis. Bones: The bony structures of the skull are intact without evidence of fracture or destructive lesions. Soft Tissues: The visualized soft tissues of the head are unremarkable. Additional Findings: Attenuated right vertebral artery likely normal variant IMPRESSION: 1. No evidence of acute thrombosis, significant stenosis nor aneurysms in the intracranial arteries. 2. Mildly attenuated opercular branches of both middle cerebral arteries with no definite significant stenosis or thrombosis. 3. Attenuated right vertebral artery likely normal variant. Electronically signed by Nadir Hernandez 01-10-2025 08:22 AM Neck CTA 01/10/25 07:33 EXAM: CT angio neck with con CLINICAL HISTORY: Neuro deficit, acute stroke suspected TECHNIQUE: CT angiography of the neck was performed following the intravenous administration of 120ml Opitray-320mg/ml of contrast material. Coronal and sagittal reformatted images were also reviewed. One of the following dose reduction techniques was utilized for this exam. Automated exposure control, adjustment of the mA and/or kV according to patient size, and use of iterative reconstruction. One of these 3D techniques was utilized: Maximum Intensity Pixel (MIP), 3D Reconstructed Images, Volume Rendered Images, Surface Shaded Rendering. COMPARISON: No previous studies are available for comparison. FINDINGS: Carotid Arteries: Mild atherosclerotic changes of both carotid system. The common, internal, and external carotid arteries are patent bilaterally with no evidence of significant stenosis, aneurysm, or dissection. There is no evidence of atherosclerotic plaque causing significant luminal narrowing. Vertebral Arteries: The vertebral arteries are patent bilaterally with no evidence of significant stenosis, aneurysm, or dissection. Thyroid Gland: The thyroid gland is normal in size and appearance with no focal lesions. Lymph Nodes: There is no evidence of significant lymphadenopathy in the neck. Soft Tissues: The soft tissues of the neck are unremarkable with no evidence of masses or abnormal collections. Additional Findings: Retropharyngeal course of the left common carotid artery. IMPRESSION: 1. No evidence of significant stenosis, aneurysm, or dissection. 2. Retropharyngeal course of the left common carotid artery. Electronically signed by Nadir Hernandez 01-10-2025 08:26 AM RT Ventilator Mngmt (Last Documented) Ventilator Ordered Settings Respiratory Rate 15 01/10/25 08:53 Ventilator - PT Measurements Respiratory Rate 15 Coding Level of Care Code 57200 IN/OBS CONSULT LVL 4,60M Diagnoses Stroke-like symptoms R29.90 Benign essential hypertension I10
[2025-01-10] MEDS ORDERED: PHARMACIST DISCHARGE MED REC CONSULT PRN (09:41)
[2025-01-10] MEDS ORDERED: LABETALOL HCL IV 5 MG/ML 20ML IV PRN (09:41)
[2025-01-10 11:05] LABS: Appearance Urine Clear (Clear); Bilirubin Urine Negative (Negative); Blood Urine Negative (Negative); Color Urine Yellow; Glucose Urine UA Negative (Negative); Ketones Urine Negative (Negative); Leukocyte Esterase Urine Negative (Negative); Nitrite Urine Negative (Negative); Protein Urine Negative (Negative); Specific Gravity Urine 1.033 (1.000-1.030); Urobilinogen Urine Negative (Negative); pH Urine 6.5 (4.5-7.5)
[2025-01-10] MEDS: PRAVASTATIN SOD 40 MG TAB PO SCH (12:25)
--- NOTE | 2025-01-10 12:58 | Neurology Consultation ---
Date of Consultation January 10, 2025 Assessment & Plan (1) Acute CVA (cerebrovascular accident): (2) Diplopia: (3) Left spastic hemiparesis: (4) Benign essential hypertension: Plan This patient seems to have suffered an acute strokelike event early this morning, January 10, which manifested as some left hemiparesis, double and blurry vision, and possible left lower extremity ataxia. He also has some right tongue weakness. Patient has an old right hemispheric stroke back in 2000 which left him with residual weakness on the left side, particularly in the left hand (which is weak and spastic). He was on clopidogrel when the new event occurred today. Currently on neurologic examination he has the spastic weakness distally in the left upper extremity (which is likely old) and no focal symptoms in the lower extremities or right upper extremity. He has some visual issues/double vision which may be a mild left 6th nerve palsy. Given the possible 6th nerve palsy, right tongue weakness, and left-sided weakness (if new), this may indicate a small brainstem stroke. Main risk factor for stroke includes hypertension as well as genetics. Recommendations: 1. Starting 24 hours after administration of TNK, initiate 81 mg aspirin +75 mg clopidogrel daily. Continue dual antiplatelet therapy for 3 weeks and then resume clopidogrel 75 mg daily alone. 2. Control blood pressure, aiming for a mean arterial pressure of 95-100. 3. Awaiting echocardiogram results 4. Awaiting fasting lipid profile and hemoglobin A1c 5. Physical, occupational, and speech therapy consults. 6. Patient needs a CT scan of the head 24 hours after the administration of TNK. Overall, I spent a total of 100 minutes with this case, including review of records, review of CT films, direct evaluation the patient at bedside, report generation, and discussion of the case with the patient, , and daughter at bedside, RN at bedside, and Dr. Mar, including differential diagnosis and treatment options. History of Present Illness Reason for Consultation: Patient is a 69-year-old, who I was asked to see at the request of Dr. Mar, for neurologic consultation regarding stroke Requesting Physician: Dr. Mar Attending Physician: Britt Mar MD History of Present Illness I first saw this patient in December 1999, when he presented with left hemiparesis. A CT scan of the head at that time showed an old small right cerebellar lacunar type infarct and ended up being transferred to [facility] (embolic versus large vessel occlusion). In 2000 he had a right temporoparietal stroke giving significant left-sided weakness and he ended up having spastic hemiparesis ever since. He had been on Plavix and then sometime before 2006 was switched back to aspirin only. I saw him in January 2007 when he had the onset of a new right sided weakness. At that time, MRI of the brain revealed an acute infarct in the superior left parietal lobe with multiple old sites of infarct as before including right frontal parietal and left occipital. An MRA of the head showed absent flow in the right A1 segment. There were diminished peripheral branching of both middle cerebral arteries with areas of "cut off" vessels. There was poor demonstration of peripheral branch vessels of the posterior cerebral arteries bilaterally. Carotid ultrasound was unremarkable and he has been on Plavix daily ever since. Patient fell in September 2024 resulting in an acute L4 compression fracture with old compression fractures L1-L4. He has been using a walker since. The patient awoke this morning January 10 at 0600 feeling fairly well. He got up uses walker to go to the bathroom and sat down to urinate. When he got up he felt "woozy" which was more of a spinning sensation than a lightheaded sensation. He did not pass out. He sat back down and when he got up again he noticed his balance was off and his left leg was weaker. He also had vision issues which consisted of "fuzzy" vision hard to focus as well as double vision (2-4 of an object). He had some posterior cervical spine pain, bifrontal pressure pain as well. He felt that his left upper extremity was a little weaker than it should have been compared to previous. He had no ear pain or tinnitus. He has chronic hearing loss in the left ear. He arrived to the emergency room January 10 at 0734 with a blood pressure of 138/93, pulse of 66, respiratory rate 14, and O2 saturation 97%. He was afebrile. Blood pressure readings were elevated in the 140s over 90s to is much as 150s over 105. This has been persistent since. Neuro exam in the ER revealed decreased bit grinder on the left with some ataxia with left frlr-lz-qiel testing (or leg weakness. There was a right gaze preference that he could not look up or down well. He had worse double vision when he looks to the left. CBC showed mild anemia but was otherwise unremarkable. CHEM profile was unremarkable. Troponin was 20.4 and urinalysis was unremarkable. Chest x-ray was the same as September 2024 and showed some bronchitis/congestion. CT scan of the head showed an old left occipital stroke and old centrum semiovale ischemic changes. There were no acute changes. I reviewed these CT films. CT angiography of the head was unremarkable for any significant stenoses. A small right vertebral was again noted. CT angiography of the neck was unremarkable. Telestroke with [facility] was performed and TNK was given. This was completed at 0822 (48-minute door to needle time) Currently, the patient feels a lot better and started making improvements about 30 minutes after the TNK and has gradually been getting better since. He still has a little bit of vision problems but feels about 90% better. His leg feels back to baseline as does his hand. Allergies Allergy/AdvReac Type Severity Reaction Status Date / Time No Known Allergies Allergy Unknown Verified 01/04/25 14:28 Home Medications Medication Instructions Recorded Confirmed Type cholecalciferol (vitamin D3) 25 25 mcg PO QAM 08/18/21 01/04/25 History mcg (1,000 unit) capsule (Vitamin D3) clopidogrel 75 mg tablet 75 mg PO QAM 08/18/21 01/04/25 History ezetimibe 10 mg tablet 10 mg PO QAM 08/18/21 01/04/25 History losartan 50 mg tablet 50 mg PO QAM 08/18/21 01/04/25 History multivitamin 1 tab PO QAM 08/18/21 01/04/25 History pravastatin 80 mg tablet 80 mg PO QAM 08/18/21 01/04/25 History acetaminophen 650 mg 650 mg PO Q12H PRN 10/26/24 01/04/25 History tablet,extended release (Tylenol 8 Hour) Patient History Medical History History of asthma Ambulatory dysfunction Hemiplegia History of CVA (cerebrovascular accident) Carotid artery stenosis s/p right carotid endarterectomy (~2000), Follows with Dr. Carpenter History of back pain Degenerative disc disease Stroke 1999, 2002 > residual left side weakness, on plavix Hypertension Hyperlipidemia Surgical History [place] [place] no stents History of carotid endarterectomy Right carotid [place] [place] Family History Mother , age 74 of uncertain causes No problems noted. Father , age 71 of cancer, likely pancreatic Cancer Other No family history of adverse response to anesthesia Social History (Updated 01/10/25 @ 12:55 by Sonu Hernández MD) Smoking Status: Never smoker Tobacco Type: Smokeless Tobacco (Dip or Chew) Age Started Using Tobacco: 14; Age Quit Using Tobacco: 69; Smoking End Date: Stopped chewing (approximately 1 can per week) in September 2024; Second Hand Exposure: No; Do You Dip or Chew Tobacco: No (quit in september 2024); Tobacco Cessation Education Requested by Patient: No Hx Alcohol Use: Yes Alcohol type: beer Alcohol Intake Frequency: 2-4 x/Month Hx Substance Use: No Preferred Language: Sami Communication Ability: Effective Van Owner Operator Required: No Beliefs That Will Affect Care: None Current Living Situation: Spouse current occupational status: retired 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 Other Information That Helps Us Care for You: No Feels Safe at Home: Yes Safety Concerns: Feels Safe At This Time Assistive Devices: Cane, Denture - Upper, Denture - Lower, Glasses and Walker Review of Systems Constitutional: no fever, no fatigue and no weakness Eyes: + diplopia and + worsening vision; no ey e pain Ear, Nose, Mouth, Throat: + dizziness; no ear pain, no tinnitus, n o hearing loss, no snoring, no hoarseness and no dysphagia Respiratory: no cough and no dyspnea Cardiovascular: no chest pain, no palpitations and no lightheadedness Gastrointestinal: no abdominal pain, no nausea and no vomiting Musculoskeletal: no back pain, no neck pain, no radicular pain, no joint pain and no myalgia Integumentary: no rash and no lesions Neurologic: + gait abnormality and + localized weakn ess; no generalized weakness, no tingling, no numbness, no tremor(s), no abnormal movements, no headache(s), no abnormal speech, no confusion and no memory loss Psychiatric: no depression, no irritability, no anxiety, no difficulty concentrating, no confusion and no hallucinations Endocrine: no fatigue and no flushing Hematologic / Lymphatic: no easy bleeding and no easy bruising Allergy / Immunological: no urticaria and no problem reported Exam (Neuro) Physical Exam: The patient is right-handed. The patient is awake, alert, and attentive. Speech is normal without any aphasia or dysarthria. Mentation and thought processes are intact, with full orientation and normal fund of knowledge. Mood and affect are normal and appropriate. Appearance and grooming are normal. Short and long-term memory are intact to conversation. The discs are sharp with positive venous pulsations bilaterally. There are no exudates, hemorrhages, or blood vessel changes seen. Pupils are 4 mm bilaterally and reactive to light. Extraocular eye muscles are intact without nystagmus, except he really cannot fully abduct the left eye with left gaze. Looking to the left gives him an increase in double vision. Otherwise he has good up and downgaze and right gaze. Visual acuity and visual fox seem normal grossly to confrontation. There are no deficits to sensation in the face in all 3 distributions of the fifth cranial nerve bilaterally. Corneal reflexes are positive bilaterally. Facial strength and symmetry was normal bilaterally. Hearing seems intact grossly to voice and finger rub bilaterally. Palate moves well without asymmetry. There is normal sternocleidomastoid and trapezius strength bilaterally. Tongue deviates some to the right and is weak to the right compared to the left. He has no issues swallowing however. Neck has a full range of motion without discomfort. There are no cervical bruits bilaterally. There are no cranial or ocular bruits. Heart is without murmur. There is a regular rhythm and rate. Cervical, thoracic, and lumbar spine are nontender to palpation. Gait is not tested and stance sitting up in bed is reasonable. With outstretched arms there is no drift, but he does have some downward weakness with the left upper extremity and eyes closed. There are no resting, postural, or action tremors. There is no ataxia with finger to nose testing. There is no obvious ataxia with pcpn-zq-wxfq testing bilaterally either. There is good facility in the right upper extremity. The left hand has clumsiness and spasticity (likely old). No other abnormal involuntary movements are noted. Motor strength is 5/5 diffusely in the arms bilaterally including deltoids, biceps, triceps, brachioradialis, and wrist flexors and extensors. Hammer Adjuster and intrinsic hand muscles are 5/5 on the right and spastic and 4/5 on the left. Motor strength is 5/5 diffusely in the legs bilaterally including hip flexors, quadriceps, hamstrings, gastrocnemius, tibialis anterior, tibialis posterior, and Peroneii muscles bilaterally. Toe extensors are normal and there is good bulk in the extensor digitorum brevis muscles bilaterally. The limbs have good tone without rigidity or spasticity (except distally in the left upper extremity). There is no atrophy noted in the muscles. Muscle bulk is normal, there is no tenderness to palpation, no myotonia to percussion, and no fasciculations seen. Sensory examination is intact to touch and pin throughout all 4 limbs diffusely. Reflexes are 2/4 in the biceps, triceps, and brachioradialis tendons bilaterally. Quadriceps tendon reflexes are 1/4 bilaterally and Achilles tendon reflexes are 0/4 bilaterally. Toes are downgoing with plantar stimulation bilaterally. Peripheral pulses are present and of normal quality distally in all 4 limbs. There is no peripheral edema noted in the limbs. Results & Data Vital Signs (Past 12 Hours) Vital Signs Pulse Pulse Resp BP BP Pulse Ox O2 Del Method 01/10/25 11:22 74 23 141/105 H 96 Room Air 01/10/25 10:52 76 25 H 135/91 97 Room Air 01/10/25 10:22 77 24 141/85 H 95 Room Air 01/10/25 10:07 73 145/98 H 95 Room Air 01/10/25 09:52 69 148/88 H 97 Room Air 01/10/25 09:37 78 153/94 H 96 Room Air 01/10/25 09:30 73 18 139/103 H 96 Room Air 01/10/25 09:15 75 17 95 01/10/25 09:15 156/96 H 01/10/25 09:12 67 20 96 01/10/25 09:08 72 15 135/105 H 95 Room Air 01/10/25 09:03 67 24 96 01/10/25 09:00 135/105 H 01/10/25 09:00 135/105 H 01/10/25 09:00 135/105 H 01/10/25 08:57 66 20 97 01/10/25 08:53 67 15 141/93 H 95 Room Air 01/10/25 08:51 74 96 01/10/25 08:45 141/93 H 01/10/25 08:45 141/93 H 01/10/25 08:45 141/93 H 01/10/25 08:45 141/93 H 01/10/25 08:45 141/93 H 01/10/25 08:45 141/93 H 01/10/25 08:45 67 18 95 01/10/25 08:42 69 19 95 01/10/25 08:33 69 18 95 01/10/25 08:30 129/97 01/10/25 08:30 129/97 01/10/25 08:24 71 21 01/10/25 08:21 67 23 01/10/25 08:18 66 24 01/10/25 08:00 67 19 97 01/10/25 07:56 76 01/10/25 07:51 64 23 01/10/25 07:51 97 Room Air 01/10/25 07:51 66 14 01/10/25 07:48 Room Air 01/10/25 07:44 138/93 PG Care Time/CCT Total # of Minutes Spent Total Time Spent with Patient: Total time spent is greater than 50% in coordination of care (as documented) at patient's floor/unit and/or counseling patient: Coding Level of Care Code 75557 INT INP/OBS CARE 375MIN Diagnoses Acute CVA (cerebrovascular accident) I63.9 Diplopia H53.2 Left spastic hemiparesis G81.14 Benign essential hypertension I10 Time Spent (min) 100
[2025-01-10] MEDS: ICU Protocol for HYPERglycemia SCH (16:43)
--- NOTE | 2025-01-10 20:40 | Magnetic Resonance Report ---
MRI BRAIN WITHOUT CONTRAST TECHNIQUE: An MRI examination of the brain was performed utilizing sagittal and axial T1-weighted images as well as axial T2-weighted, FLAIR, gradient echo and diffusion-weighted images. INDICATION: Altered mental status COMPARISON: Brain CT and CTA head and neck from earlier the same day at 8:26 AM. FINDINGS: No acute infarct is identified. Encephalomalacia from multifocal chronic infarcts involving both cerebral hemispheres and KELLY, MCA and left SENIOR QUALITY MANAGER territorial distributions with surrounding gliosis. Small chronic infarcts in the right cerebellar hemisphere. Scattered periventricular and subcortical white matter T2/FLAIR hyperintensities are nonspecific but are typically seen in the setting of chronic small vessel ischemic changes. Cerebral volume loss with expected ex vacuo dilatation of the basilar cisterns and prominent sulci. The ventricles enlarged to a degree that is out of proportion to the surrounding cerebral volume loss. There is no evidence of intracranial mass lesion, extra-axial fluid collection, restricted diffusion or parenchymal hemorrhage. The cerebellar tonsils are normal in position. The pituitary gland is not enlarged. No intraorbital soft tissue mass lesion is observed. The visualized paranasal sinuses are aerated. Mastoids are aerated. IMPRESSION: No acute intracranial process detected. Multifocal encephalomalacia with surrounding gliosis from chronic infarctions. 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 Electronically signed by Christopher Dean 01-10-2025 8:40 PM
[2025-01-10] MEDS: THIAMINE HCL 100 MG TAB PO SCH (20:48)
--- NOTE | 2025-01-10 23:34 | XCELERA ---
[id number] \\[id number]
[2025-01-11 05:18] LABS: Basophils # (auto) 0.02 K/uL (0.00-0.20); Basophils % (auto) 0.3 %; Eosinophils # (auto) 0.19 K/uL (0.00-0.50); Hematocrit (blood only) 36.8 % (42.0-52.0); Hemoglobin 12.2 g/dl (14.0-18.0); Immature Granulocytes # (auto) 0.01 K/uL (0.01-0.20); Immature Granulocytes % (auto) 0.2 %; Lymphocytes # (auto) 1.21 K/uL (1.20-3.40); Lymphocytes % (auto) 18.8 %; Mean Corpuscular Hemoglobin 29.4 pg (25.0-34.0); Mean Corpuscular Hgb Conc 33.2 g/dL (32.0-36.0); Mean Corpuscular Volume 88.7 fL (80.0-100.0); Mean Platelet Volume 9.3 fL (9.4-12.4); Monocytes # (auto) 0.68 K/uL (0.11-0.59); Monocytes % (auto) 10.6 %; Neutrophils # (auto) 4.31 K/uL (1.40-6.50); Neutrophils % (auto) 67.1 %; Platelet Count 160 K/uL (130-400); RDW Coefficient of Variation 13.4 % (11.5-14.5); RDW Standard Deviation 43.8 fL (36.4-46.3); Red Blood Count 4.15 M/uL (4.70-6.10); White Blood Count 6.42 K/ul (4.8-10.8)
[2025-01-11 05:37] LABS: Chol HDL Ratio 2.4 (0-5); Magnesium 2.1 mg/dl (1.7-2.4); Phosphorus 3.6 mg/dl (2.5-4.9)
[2025-01-11 05:52] LABS: Thyroid Stimulating Hormone 1.265 uIu/ml (0.300-4.500)
[2025-01-11 06:44] LABS: BUN Creatinine Ratio 18.6 (10-20); Calcium 8.9 mg/dl (8.6-10.3); Creatinine Clr Calc Pharmacy 120.9 ml/min; Potassium 3.9 mmol/L (3.5-5.1)
[2025-01-11] MEDS: ICU ELECTROLYTE REPLACEMENT PROTOCOL SCH (07:21)
[2025-01-11 07:33] LABS: Estimated Average Glucose 126 mg/dl
--- NOTE | 2025-01-11 07:38 | Critical Care Progress Note ---
Date of Service January 11, 2025 Assessment & Plan (1) Left spastic hemiparesis: (2) Acute CVA (cerebrovascular accident): (3) tPA adm status 24 hr TIN DIPPER: Plan Impression: 69-year-old male with prior history of CVA presenting with visual disturbances and gait abnormalities suspicious for new stroke. He received TNK. MRI unremarkable for any new acute changes. No bleeding complications. Recommendations: 1. Status post TNK administration: Follow-up CT scan is scheduled for 9:00 this morning. If that scan is unremarkable, he can be dismissed from the ICU to the floor with disposition to be determined by the primary admitting service. 2. Prior stroke: Neurology notes reviewed. Agree with plans for aspirin Plavix post 24-hour CT scan. Will need physical therapy and Occupational Therapy evaluation. 3. Echocardiogram showed ejection fraction of 50 to 60% without regional wall motion abnormalities. No significant valvular abnormalities. Mildly dilated aortic root. No shunt with agitated saline injection. Will need outpatient follow-up for mildly dilated aortic root. Continue blood pressure control. Patient's critical care issues have resolved. If the 24-hour CT scan is unremarkable, the patient can likely be transferred to the floor in critical ca re will sign off. Feel free to contact us with questions or concerns Admission and Anticipated Discharge Date Admission Date: January 10, 2025 Subjective Patient seen and examined. EMR reviewed. Discussed with off going garden labourer as well as overnight critical care CHRISTINA and bedside critical care nurse. Case reviewed on multidisciplinary rounds. Patient is awake alert and conversant this morning. He feels that he is back to his neurological baseline. No bleeding issues overnight. No new neurological complaints. Review of Systems Review of Systems: All systems reviewed & are unremarkable except as noted in Subjective Physical Exam Constitutional: WD/WN, vitals as above Neck: trachea midline, no thyromegaly Respiratory: normal respiratory effort, lungs clear to auscultation Cardiovascular: RRR, no murmur, no edema Gastrointestinal (Abdomen): normal bowel sounds, soft, nontender, no hepatosplenomegaly Musculoskeletal: Extremities: extremities normal to inspection Skin: no rashes, warm and dry Neurologic: Some residual weakness on his left upper extremity from his prior stroke Lymphatic: no cervical lymphadenopathy Results & Data Results & Data Vital Signs (Past 12 Hours) Vital Signs Temp Pulse Pulse Resp BP BP Pulse Ox 01/11/25 07:22 36.8 C 85 22 130/93 95 01/11/25 06:03 64 16 94 01/11/25 06:00 120/80 01/11/25 06:00 120/80 01/11/25 06:00 120/80 01/11/25 05:45 64 17 93 01/11/25 05:03 82 18 96 01/11/25 05:01 138/87 01/11/25 05:01 138/87 01/11/25 04:45 67 17 92 01/11/25 04:15 67 17 93 01/11/25 04:00 113/87 01/11/25 04:00 113/87 01/11/25 03:48 71 18 93 01/11/25 03:00 68 18 93 01/11/25 02:03 73 21 95 01/11/25 02:00 143/86 H 01/11/25 01:57 77 19 95 01/11/25 01:05 77 21 92 01/11/25 01:01 117/69 01/11/25 01:01 117/69 01/11/25 00:56 79 19 95 01/11/25 00:05 82 17 94 01/11/25 00:00 133/80 01/11/25 00:00 133/80 01/11/25 00:00 36.9 C 01/11/25 00:00 72 01/10/25 23:56 72 18 92 01/10/25 23:23 36.8 C 01/10/25 23:05 70 0 L 94 01/10/25 23:00 135/93 01/10/25 23:00 135/93 01/10/25 23:00 135/93 01/10/25 22:59 78 22 95 01/10/25 22:29 80 19 96 01/10/25 22:23 36.8 C 75 16 131/93 96 01/10/25 22:00 131/93 01/10/25 22:00 131/93 01/10/25 21:57 79 23 94 01/10/25 21:23 36.9 C 79 15 154/99 H 95 01/10/25 21:00 154/99 H 01/10/25 21:00 154/99 H 01/10/25 21:00 154/99 H 01/10/25 21:00 154/99 H 01/10/25 21:00 154/99 H 01/10/25 21:00 154/99 H 01/10/25 21:00 154/99 H 01/10/25 21:00 81 26 H 94 01/10/25 20:43 138/95 01/10/25 20:43 138/95 01/10/25 20:23 36.9 C 01/10/25 20:00 80 22 O2 Del Method 01/11/25 07:22 Room Air 01/11/25 06:03 01/11/25 06:00 01/11/25 06:00 01/11/25 06:00 01/11/25 05:45 01/11/25 05:03 01/11/25 05:01 01/11/25 05:01 01/11/25 04:45 01/11/25 04:15 01/11/25 04:00 01/11/25 04:00 01/11/25 03:48 01/11/25 03:00 01/11/25 02:03 01/11/25 02:00 01/11/25 01:57 01/11/25 01:05 01/11/25 01:01 01/11/25 01:01 01/11/25 00:56 01/11/25 00:05 01/11/25 00:00 01/11/25 00:00 01/11/25 00:00 01/11/25 00:00 01/10/25 23:56 01/10/25 23:23 01/10/25 23:05 01/10/25 23:00 01/10/25 23:00 01/10/25 23:00 01/10/25 22:59 01/10/25 22:29 01/10/25 22:23 Room Air 01/10/25 22:00 01/10/25 22:00 01/10/25 21:57 01/10/25 21:23 Room Air 01/10/25 21:00 01/10/25 21:00 01/10/25 21:00 01/10/25 21:00 01/10/25 21:00 01/10/25 21:00 01/10/25 21:00 01/10/25 21:00 01/10/25 20:43 01/10/25 20:43 01/10/25 20:23 01/10/25 20:00 Critical Care Results & Data Vital Signs (Past 12 Hours) Vital Signs Temp Pulse Pulse Resp BP BP Pulse Ox 01/11/25 07:22 36.8 C 85 22 130/93 95 01/11/25 06:03 64 16 94 01/11/25 06:00 120/80 01/11/25 06:00 120/80 01/11/25 06:00 120/80 01/11/25 05:45 64 17 93 01/11/25 05:03 82 18 96 01/11/25 05:01 138/87 01/11/25 05:01 138/87 01/11/25 04:45 67 17 92 01/11/25 04:15 67 17 93 01/11/25 04:00 113/87 01/11/25 04:00 113/87 01/11/25 03:48 71 18 93 01/11/25 03:00 68 18 93 01/11/25 02:03 73 21 95 01/11/25 02:00 143/86 H 01/11/25 01:57 77 19 95 01/11/25 01:05 77 21 92 01/11/25 01:01 117/69 01/11/25 01:01 117/69 01/11/25 00:56 79 19 95 01/11/25 00:05 82 17 94 01/11/25 00:00 133/80 01/11/25 00:00 133/80 01/11/25 00:00 36.9 C 01/11/25 00:00 72 01/10/25 23:56 72 18 92 01/10/25 23:23 36.8 C 01/10/25 23:05 70 0 L 94 01/10/25 23:00 135/93 01/10/25 23:00 135/93 01/10/25 23:00 135/93 01/10/25 22:59 78 22 95 01/10/25 22:29 80 19 96 01/10/25 22:23 36.8 C 75 16 131/93 96 01/10/25 22:00 131/93 01/10/25 22:00 131/93 01/10/25 21:57 79 23 94 01/10/25 21:23 36.9 C 79 15 154/99 H 95 02/09/25 21:00 154/99 H 01/10/25 21:00 154/99 H 01/10/25 21:00 154/99 H 01/10/25 21:00 154/99 H 01/10/25 21:00 154/99 H 01/10/25 21:00 154/99 H 01/10/25 21:00 154/99 H 01/10/25 21:00 81 26 H 94 01/10/25 20:43 138/95 01/10/25 20:43 138/95 01/10/25 20:23 36.9 C 01/10/25 20:00 80 22 O2 Del Method 01/11/25 07:22 Room Air 01/11/25 06:03 01/11/25 06:00 01/11/25 06:00 01/11/25 06:00 01/11/25 05:45 01/11/25 05:03 01/11/25 05:01 01/11/25 05:01 01/11/25 04:45 01/11/25 04:15 01/11/25 04:00 01/11/25 04:00 01/11/25 03:48 01/11/25 03:00 01/11/25 02:03 01/11/25 02:00 01/11/25 01:57 01/11/25 01:05 01/11/25 01:01 01/11/25 01:01 01/11/25 00:56 01/11/25 00:05 01/11/25 00:00 01/11/25 00:00 01/11/25 00:00 01/11/25 00:00 01/10/25 23:56 01/10/25 23:23 01/10/25 23:05 01/10/25 23:00 01/10/25 23:00 01/10/25 23:00 01/10/25 22:59 01/10/25 22:29 01/10/25 22:23 Room Air 01/10/25 22:00 01/10/25 22:00 01/10/25 21:57 01/10/25 21:23 Room Air 01/10/25 21:00 01/10/25 21:00 01/10/25 21:00 01/10/25 21:00 01/10/25 21:00 01/10/25 21:00 01/10/25 21:00 01/10/25 21:00 01/10/25 20:43 01/10/25 20:43 01/10/25 20:23 01/10/25 20:00 Lab & Micro Results (Past 24 Hours) RBC 4.15 M/uL (4.70-6.10) L 01/11/25 WBC 6.42 K/ul (4.8-10.8) 01/11/25 Hgb 12.2 g/dl (14.0-18.0) L 01/11/25 Hct 36.8 % (42.0-52.0) L 01/11/25 MCV 88.7 fL (80.0-100.0) 01/11/25 MCH 29.4 pg (25.0-34.0) 01/11/25 MCHC 33.2 g/dL (32.0-36.0) 01/11/25 RDW Standard Deviation 43.8 fL (36.4-46.3) 01/11/25 RDW Coefficient of Variation 13.4 % (11.5-14.5) 01/11/25 Plt Count 160 K/uL (130-400) 01/11/25 MPV 9.3 fL (9.4-12.4) L 01/11/25 Neutrophils (%) (Auto) 67.1 % 01/11/25 Lymphocytes (%) (Auto) 18.8 % 01/11/25 Monocytes # (Auto) 0.68 K/uL (0.11-0.59) H 01/11/25 Eosinophils # (Auto) 0.19 K/uL (0.00-0.50) 01/11/25 Immature Granulocyte % (Auto) 0.2 % 01/11/25 Neutrophils # (Auto) 4.31 K/uL (1.40-6.50) 01/11/25 Lymphocytes # (Auto) 1.21 K/uL (1.20-3.40) 01/11/25 Monocytes # (Auto) 0.68 K/uL (0.11-0.59) H 01/11/25 Eosinophils # (Auto) 0.19 K/uL (0.00-0.50) 01/11/25 Basophils # (Auto) 0.02 K/uL (0.00-0.20) 01/11/25 Immature Granulocyte # (Auto) 0.01 K/uL (0.01-0.20) 5 Na 138 mmol/L (136-145) 01/11/25 K 3.9 mmol/L (3.5-5.1) 01/11/25 Cl 105 mmol/L (98-107) 01/11/25 CO2 26 mmol/L (21-32) 01/11/25 Anion Gap 7 (3-11) 01/11/25 BUN 13 mg/dl (6-23) 01/11/25 Creatinine 0.70 mg/dl (0.6-1.4) 01/11/25 BUN/Creatinine Ratio 18.6 (10-20) 01/11/25 Glu 104 mg/dl (70-99(Fasting)) H 01/11/25 Ca 8.9 mg/dl (8.6-10.3) 01/11/25 Phosphorus Level 3.6 mg/dl (2.5-4.9) 01/11/25 Total Bilirubin 0.4 mg/dl (0.2-1.0) 01/10/25 AST 13 U/L (13-39) 01/10/25 ALT 13 U/L (7-52) 01/10/25 Alkaline Phosphatase 61 U/L (34-104) 01/10/25 TP 6.0 gm/dl (6.0-8.3) 01/10/25 Albumin 3.3 gm/dl (3.4-5.0) L 01/10/25 Globulin 2.7 gm/dl (2.5-4.0) 01/10/25 Albumin/Globulin Ratio 1.2 (0.9-2) 01/10/25 Mg 2.1 mg/dl (1.7-2.4) 01/11/25 04:57 Calcium Level 8.9 mg/dl (8.6-10.3) 01/11/25 04:57 Prothromb Time International Ratio 1.0 (0.9-1.1) 01/10/25 07:5 1 Diagnostic Findings (Past 24 Hours) Chest X-Ray 01/10/25 07:33 EXAM: XR chest 1V portable CLINICAL HISTORY: Neuro deficit, acute stroke suspected. TECHNIQUE: An X-ray image of the chest is obtained in PA projection. COMPARISON: CR dated 09/23/2024. FINDINGS: Pulmonary Parenchyma: Bilateral prominent bronchovascular/interstitial markings. No evidence of consolidation, collapse, or focal opacities. No pulmonary nodules are identified. No evidence of pleural effusion or pleural thickening. Heart and Mediastinum: Limited evaluation of the cardiac size given an AP projection. No mediastinal widening or masses. No hilar or mediastinal lymphadenopathy. Bony Thorax: The bony thorax appears intact without fractures or deformities. [Post CABG sternotomy] sutures seen in situ. Soft Tissues: Soft tissues overlying the chest wall are unremarkable. IMPRESSION: 1. Bilateral prominent bronchovascular/interstitial markings. Bronchitis/congestion. 2. Comparing the previous x-ray dated 09/23/2024 the findings remain stable. Electronically signed by Nadir Hernandez 01-10-2025 08:[address] 01/10/25 07:33 EXAM: CT head/brain wo con CLINICAL HISTORY: Neuro deficit, acute stroke suspected TECHNIQUE: Axial non-contrast CT scan of the brain was performed from the skull base to the high parietal region with coronal and sagittal reformats. One of the following dose reduction techniques were utilized for this exam: Automated exposure control, adjustment of the mA and/or kV according to patient size, use of iterative reconstruction. COMPARISON: 09/23/2024 CT. FINDINGS: Brain Parenchyma: Old lacunar infarct in the right cerebellar region. Prominent ventricular system and extra-axial CSF spaces suggesting senile changes. diffuse periventricular hypodensity suggesting chronic microvascular ischemic changes. Areas of hypodensity cortical and subcortical locations noted centrum semiovale of both frontal parietal regions likely representing old ischemic insult. Ill-defined subcortical area of hypodensity noted in the left occipital region likely representing old insult. No evidence of hemorrhage, or mass effect. Ventricular System: Ventricles are normal in size and configuration. No evidence of hydrocephalus or ventricular enlargement. Subarachnoid Spaces: Normal sulci and cisterns. No evidence of subarachnoid hemorrhage or extra-axial fluid collections. Cerebellum and Brainstem: Normal size and signal. No masses, lesions, or areas of abnormal signal. Orbits: Normal appearance of the globes, optic nerves, and extraocular muscles. No evidence of orbital masses or abnormal signals. Sinuses: Clear paranasal sinuses. No evidence of sinusitis or mucosal thickening. Mastoid Air Cells: Clear mastoid air cells. No evidence of mastoiditis. Skull: Normal skull morphology. IMPRESSION: 1. Senile changes with chronic microvascular ischemic changes. 2. Stable centrum semiovale of both frontal-parietal regions old ischemic insults, However,M RI DWI is advised to exclude the possibility of acute ischemic insult on top. 3. Stable left occipital old ischemic insult. 4. Compared to prior study no detected interval changes. Electronically signed by Nadir Hernandez 01-10-2025 08:11 AM Head CTA 01/10/25 07:33 EXAM: CT angio head w con CLINICAL HISTORY: Neuro deficit, acute stroke suspected. TECHNIQUE: CT angiography of the head was performed following the intravenous administration of 120ml Opitray-320mg/ml intravenous contrast material. Contiguous axial images were obtained from the base of the skull to the vertex. Coronal and sagittal reformatted images were also reviewed. One of these 3D techniques was utilized: Maximum Intensity Pixel (MIP), 3D Reconstructed Images, Volume Rendered Images, Surface Shaded Rendering. One of the following dose-reduction techniques was utilized for this exam. Automated exposure control, adjustment of the mA and/or kV according to patient size, and use of iterative reconstruction. COMPARISON: No previous studies are available for comparison. FINDINGS: Intracranial Arteries: The intracranial arteries, including the anterior cerebral arteries, middle cerebral arteries, posterior cerebral arteries, basilar artery, and vertebral arteries, are all patent without evidence of significant stenosis, aneurysm, or dissection. There is no evidence of vascular malformations. [place]: The [place] is intact with no anatomical variations or abnormalities noted. All segments are well-visualized and normal in appearance. Mildly attenuated opercular branches Of both middle cerebral arteries with no definite significant stenosis or thrombosis Venous System: The visualized portions of the venous system, including the dural venous sinuses, are patent with no evidence of thrombosis. Bones: The bony structures of the skull are intact without evidence of fracture or destructive lesions. Soft Tissues: The visualized soft tissues of the head are unremarkable. Additional Findings: Attenuated right vertebral artery likely normal variant IMPRESSION: 1. No evidence of acute thrombosis, significant stenosis nor aneurysms in the intracranial arteries. 2. Mildly attenuated opercular branches of both middle cerebral arteries with no definite significant stenosis or thrombosis. 3. Attenuated right vertebral artery likely normal variant. Electronically signed by Nadir Hernandez 01-10-2025 08:22 AM Neck CTA 01/10/25 07:33 EXAM: CT angio neck with con CLINICAL HISTORY: Neuro deficit, acute stroke suspected TECHNIQUE: CT angiography of the neck was performed following the intravenous administration of 120ml Opitray-320mg/ml of contrast material. Coronal and sagittal reformatted images were also reviewed. One of the following dose reduction techniques was utilized for this exam. Automated exposure control, adjustment of the mA and/or kV according to patient size, and use of iterative reconstruction. One of these 3D techniques was utilized: Maximum Intensity Pixel (MIP), 3D Reconstructed Images, Volume Rendered Images, Surface Shaded Rendering. COMPARISON: No previous studies are available for comparison. FINDINGS: Carotid Arteries: Mild atherosclerotic changes of both carotid system. The common, internal, and external carotid arteries are patent bilaterally with no evidence of significant stenosis, aneurysm, or dissection. There is no evidence of atherosclerotic plaque causing significant luminal narrowing. Vertebral Arteries: The vertebral arteries are patent bilaterally with no evidence of significant stenosis, aneurysm, or dissection. Thyroid Gland: The thyroid gland is normal in size and appearance with no focal lesions. Lymph Nodes: There is no evidence of significant lymphadenopathy in the neck. Soft Tissues: The soft tissues of the neck are unremarkable with no evidence of masses or abnormal collections. Additional Findings: Retropharyngeal course of the left common carotid artery. IMPRESSION: 1. No evidence of significant stenosis, aneurysm, or dissection. 2. Retropharyngeal course of the left common carotid artery. Electronically signed by Nadir Hernandez 01-10-2025 08:26 AM Brain MRI 01/10/25 09:41 MRI BRAIN WITHOUT CONTRAST TECHNIQUE: An MRI examination of the brain was performed utilizing sagittal and axial T1-weighted images as well as axial T2-weighted, FLAIR, gradient echo and diffusion-weighted images. INDICATION: Altered mental status COMPARISON: Brain CT and CTA head and neck from earlier the same day at 8:26 AM. FINDINGS: No acute infarct is identified. Encephalomalacia from multifocal chronic infarcts involving both cerebral hemispheres and KELLY, MCA and left [place] territorial distributions with surrounding gliosis. Small chronic infarcts in the right cerebellar hemisphere. Scattered periventricular and subcortical white matter T2/FLAIR hyperintensities are nonspecific but are typically seen in the setting of chronic small vessel ischemic changes. Cerebral volume loss with expected ex vacuo dilatation of the basilar cisterns and prominent sulci. The ventricles enlarged to a degree that is out of proportion to the surrounding cerebral volume loss. There is no evidence of intracranial mass lesion, extra-axial fluid collection, restricted diffusion or parenchymal hemorrhage. The cerebellar tonsils are normal in position. The pituitary gland is not enlarged. No intraorbital soft tissue mass lesion is observed. The visualized paranasal sinuses are aerated. Mastoids are aerated. IMPRESSION: No acute intracranial process detected. Multifocal encephalomalacia with surrounding gliosis from chronic infarctions. 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 Electronically signed by Christopher Dean 01-10-2025 8:40 PM I & O Totals 24 Hours 01/10/25 01/11/25 01/12/25 06:59 06:59 06:59 Intake Total 840 / 840 Output Total 2990 / 2990 Balance -2150 / -2150 Cumulative 01/10/25 07:22 thru 01/11/25 06:47 Intake Total 840 Output Total 2990 Balance -2150 RT Ventilator Mngmt (Last Documented) Ventilator Ordered Settings Respiratory Rate 22 01/11/25 07:22 Ventilator - PT Measurements Respiratory Rate 22 Coding Level of Care Code 21890 SUB INP/OBS CARE 2/35MIN Diagnoses Left spastic hemiparesis G81.14 Acute CVA (cerebrovascular accident) I63.9 tPA adm status 24 hr TIN DIPPER Z92.82
[2025-01-11] MEDS: POTASSIUM CHLORIDE CRTAB 20 MEQ TABCR PO SCH (07:39)
--- NOTE | 2025-01-11 09:26 | CT Scan Report ---
CT OF THE HEAD WITHOUT CONTRAST CLINICAL HISTORY: Post TPA/TNK 24 hour COMPARISON STUDY: Head CT, CTA of the head and MRI of the brain January 10, 2025. CT DOSE: 625.8 mGy.cm TECHNIQUE: Helical axial images of the head were obtained without IV contrast. Automated exposure con trol was utilized for the study. A dose lowering technique was utilized adhering to the principles o f ALARA. FINDINGS: No acute intracranial hemorrhage, midline shift or mass effect is present. Ventricular syst em is stable. Basal cisterns are patent. There are no extra-axial collections. Multifocal encephaloma lacia consistent with old infarcts within the bilateral frontal and parietal lobes are again noted. O ld right cerebellar infarct is present. The appearance of the brain is unchanged. Basal cisterns are patent. There are no extra-axial collections. IMPRESSION: 1. No acute intracranial findings. No change in appearance of the brain. 2. Multiple old infarcts. ACT 112: Negative or not required by law. Electronically signed by: Andres Baumann M.D. 01/11/2025 9:25 AM
--- NOTE | 2025-01-11 09:47 | Neurology Progress Note ---
Date of Service January 11, 2025 Assessment & Plan (1) TIA (transient ischemic attack): Admission and Anticipated Discharge Date Admission Date: January 10, 2025 Subjective S: this morning feeling well. CT head negative. mri brain negative. all symptoms essentially resolved. admission HPi: 69 y/o man with HTN, HLD and previous strokes resultant left sided weakness, came in as stroke alert to ED and given TNK. He had a stroke in 2000 treated at [facility] - perhaps got TPA - has persistent L sided weakness from this. He was in his USOH until 6:30 AM he got up to go to bathroom, developed neurolog ical symptoms: vision couldn't focus, later some double vision, off balance / coordination, L weakness seemed baseline In the ED his initial exam notable for R gaze preference, could maybe get past midline, double vision, trouble looking up and down, trouble with HTS Macarena telestroke consulted - advised TNK, which was given. ICU consulted for post TNK admission Results & Data Vital Signs (Past 12 Hours) Vital Signs Temp Pulse Pulse Resp BP BP Pulse Ox 01/11/25 09:09 78 24 95 01/11/25 08:45 79 18 96 01/11/25 08:22 36.6 C 85 24 152/92 H 96 01/11/25 08:00 01/11/25 07:22 36.8 C 85 22 130/93 95 01/11/25 06:03 64 16 94 01/11/25 06:00 120/80 01/11/25 06:00 120/80 01/11/25 06:00 120/80 01/11/25 05:45 64 17 93 01/11/25 05:03 82 18 96 01/11/25 05:01 138/87 01/11/25 05:01 138/87 01/11/25 04:45 67 17 92 01/11/25 04:15 67 17 93 01/11/25 04:00 113/87 01/11/25 04:00 113/87 01/11/25 03:48 71 18 93 01/11/25 03:00 68 18 93 01/11/25 02:03 73 21 95 01/11/25 02:00 143/86 H 01/11/25 01:57 77 19 95 01/11/25 01:05 77 21 92 01/11/25 01:01 117/69 01/11/25 01:01 117/69 01/11/25 00:56 79 19 95 01/11/25 00:05 82 17 94 01/11/25 00:00 133/80 01/11/25 00:00 133/80 01/11/25 00:00 36.9 C 01/11/25 00:00 72 01/10/25 23:56 72 18 92 01/10/25 23:23 36.8 C 01/10/25 23:05 70 0 L 94 01/10/25 23:00 135/93 01/10/25 23:00 135/93 01/10/25 23:00 135/93 01/10/25 22:59 78 22 95 01/10/25 22:29 80 19 96 01/10/25 22:23 36.8 C 75 16 131/93 96 01/10/25 22:00 131/93 01/10/25 22:00 131/93 01/10/25 21:57 79 23 94 O2 Del Method 01/11/25 09:09 01/11/25 08:45 01/11/25 08:22 Room Air 01/11/25 08:00 Room Air 01/11/25 07:22 Room Air 01/11/25 06:03 01/11/25 06:00 01/11/25 06:00 01/11/25 06:00 01/11/25 05:45 01/11/25 05:03 01/11/25 05:01 01/11/25 05:01 01/11/25 04:45 01/11/25 04:15 01/11/25 04:00 01/11/25 04:00 01/11/25 03:48 01/11/25 03:00 01/11/25 02:03 01/11/25 02:00 01/11/25 01:57 01/11/25 01:05 01/11/25 01:01 01/11/25 01:01 01/11/25 00:56 01/11/25 00:05 01/11/25 00:00 01/11/25 00:00 01/11/25 00:00 01/11/25 00:00 01/10/25 23:56 01/10/25 23:23 01/10/25 23:05 01/10/25 23:00 01/10/25 23:00 01/10/25 23:00 01/10/25 22:59 01/10/25 22:29 01/10/25 22:23 Room Air 01/10/25 22:00 01/10/25 22:00 01/10/25 21:57 Exam (Neuro) Physical Exam: Neuro: Mental: AOx4, fluent speech, normal comprehension, no apraxia, no neglect CN: PERRL, Full EOM, symmetric face, midline T/U/P Motor: No abnormal movements, 5/5 t/o bilaterally Sens: intact to touch b/l grossly Coord: intact grossly DTR: 1+ sym b/l Impression: 69 yo male with likely TIA event with now resolved symptoms, s/p TNKase. mri brain and CT head negative. Recommendations: finish up stroke work up as planned and as recommended by Dr. Hernández. not much to add at this point. routines stroke risk modifications. call again if new question. Chart reviewed I have spent more than 50% educating patient about potential diagnosis and neurological evaluation and coordinating care with patient's treatment team. Total time spent (including chart review and coordination of care): 35 min (this includes chart review). PG Care Time/CCT Total # of Minutes Spent Total Time Spent with Patient: Total time spent is greater than 50% in coordination of care (as documented) at patient's floor/unit and/or counseling patient: Coding Level of Care Code 95617 SUB INP/OBS CARE 2/35MIN Diagnoses TIA (transient ischemic attack) G45.9
[2025-01-11] MEDS: CLOPIDOGREL BISULFATE 75 MG TAB PO SCH (13:08)
[2025-01-11] MEDS: ASPIRIN 81 MG ECTAB PO SCH (13:08)
--- NOTE | 2025-01-11 18:03 | Hospitalist Progress Note ---
Date of Service January 11, 2025 Assessment & Plan (1) Stroke-like symptoms: Plan: 69 y/o with HTN, HLD, previous strokes in 2000, 2002 presented as a stroke alert with symptoms of disturbed vision, double vision, feeling off balance which started today at 6:30 AM while he was up to go to the bathroom. He did have right gaze preference, abnormal eye movements, ataxia with HTS on exam. [facility] Telestroke consulted and he was given TNK in the ED. Was on plavix, pravastatin. -Ct head with old L occipital and bilateral frontotemporal infarcts in centrum semiovale, no hemorrhage -CTA head/neck with no LVO or significant stenoses -CXR by my interpretation is clear with median sternotomy wires present #Probable stroke s/p TNK. Symptoms have resolved and brain MRI was negative for acute infarct - head CT this morning without any evidence of hemorrhage, okay for transfer out of ICU, okay to start DAPT with aspirin and Plavix which I ordered -TTE unchanged from previous - normal LV, EF 55-60% no RWMA's no LVH, no significant valvular abnormalities, mildly dilated aortic root unchanged, RV, negative bubble study -lipid profile - LDL is at goal 54, TSH normal, A1c 6.0% - change pravastatin to rosuvastatin -consulted neurology Dr. Hernández - recommended ASA + clopidogrel for 21d then clopidogrel alone -PT/OT/ST consults reviewedHome with home health PT and OT if he is at his baseline. will need 24-hour assistance from his . usually uses walker for short distances and wheelchair for any long distances, (2) Benign essential hypertension: Plan: Normotensive today, losartan currently held (3) Dyspnea: Plan: Dyspnea and progressive weakness Has recently been evaluated for dyspnea, including pulmonary and cardiology - only some air trapping on PFTs. Has had progressive weakness. Sniff test, CK, Jacque-[address] Yoo, has neuro appointment 03/[address] Evans -reviewed sniff test and diaphragms moved symmetrically but less than normal excursion (only 1 rib space vs normal >=2) -CK and anti-Jacque-1 were normal -TSH normal, phos normal. ESR/CRP not done will order for a.m. - B12 low normal at 351, replace empirically with oral B12 - empirically replace thiamine (4) Atherogenic dyslipidemia: Plan: Hx carotid stenosis Will be on DAPT, ASA, Plavix, statin Plan Osteoporosis followed in rheumatology clinic - history of five compression fractures Gait disturbance, LE weakness - see above, per notes he uses wheelchair most of the time. He lives with his , they have an entry ramp and no stairs Trivial troponin elevation to 22.5 related to acute stroke DVT ppx - enoxaparin tonight Admission and Anticipated Discharge Date Admission Date: January 10, 2025 Subjective No bleeding issues overnight He says he has improved. No further double vision. Now can look all the way to the left without difficulty. He notices left sided weakness. He told me right is usually weaker. His came in and confirmed that the left is his chronically weak side Physical Exam 2 Physical Exam: PHYSICAL EXAMINATION Last 24h vital signs reviewed, see documentation in flowsheet General: comfortable appearing, no distress, sitting up in the chair HEENT: Normocephalic, atraumatic, pupils round and equal, sclerae anicteric, no conjunctival injection, moist mucus membranes Lungs: Normal respiratory effort. Clear to auscultation bilaterally. No RRW Heart: Regular rate and rhythm, no murmurs. No JVD Abdomen: Soft, nontender, nondistended. Bowel sounds present. Extremities: Warm, dry, well-perfused. No extremity edema. Neuro: Alert and oriented x 4, slight left facial droop, gaze preference resolved, EOMI, no difficulty looking leftward at this time, strength exam same as yesterday: left upper extremity strength is 4/5, right upper extremity strength is 5/5, left lower extremity strength is 4+/5 at hip flexor and 34/5 with dorsiflexion, plantarflexion is 5 out of 5. right lower extremity strength is 5/5 everywhere except for hip flexor where he is 4 -/5. Psych: Normal affect and behavior Results & Data Results & Data Vital Signs (Past 12 Hours) Vital Signs Temp Pulse Pulse Resp BP BP Pulse Ox 01/11/25 16:00 69 19 01/11/25 15:25 97.7 F 01/11/25 15:06 75 21 01/11/25 14:56 123/84 01/11/25 14:15 77 21 94 01/11/25 14:06 83 19 95 01/11/25 14:01 135/84 01/11/25 13:54 77 14 94 01/11/25 13:12 88 23 96 01/11/25 13:00 135/87 01/11/25 12:00 142/85 H 01/11/25 12:00 97.9 F 01/11/25 11:57 89 20 94 01/11/25 11:06 72 20 97 01/11/25 11:00 109/80 01/11/25 10:54 70 17 96 01/11/25 10:00 150/97 H 01/11/25 10:00 150/97 H 01/11/25 10:00 78 20 97 01/11/25 09:09 78 24 95 01/11/25 08:45 79 18 96 01/11/25 08:22 97.9 F 85 24 152/92 H 96 01/11/25 08:00 01/11/25 07:22 98.2 F 85 22 130/93 95 01/11/25 06:03 64 16 94 01/11/25 06:00 120/80 01/11/25 06:00 120/80 01/11/25 06:00 120/80 O2 Del Method 01/11/25 16:00 01/11/25 15:25 01/11/25 15:06 01/11/25 14:56 01/11/25 14:15 01/11/25 14:06 01/11/25 14:01 01/11/25 13:54 01/11/25 13:12 01/11/25 13:00 01/11/25 12:00 01/11/25 12:00 01/11/25 11:57 01/11/25 11:06 01/11/25 11:00 01/11/25 10:54 01/11/25 10:00 01/11/25 10:00 01/11/25 10:00 01/11/25 09:09 01/11/25 08:45 01/11/25 08:22 Room Air 01/11/25 08:00 Room Air 01/11/25 07:22 Room Air 01/11/25 06:03 01/11/25 06:00 01/11/25 06:00 01/11/25 06:00 Laboratory Results 01/11/25 04:57 01/11/25 04:57 PG Care Time/CCT Total # of Minutes Spent Total Time Spent with Patient: Total time spent is greater than 50% in coordination of care (as documented) at patient's floor/unit and/or counseling patient: Coding Level of Care Code 94137 SUB INP/OBS CARE 3/50MIN Diagnoses Stroke-like symptoms R29.90 Benign essential hypertension I10 Dyspnea R06.00 Atherogenic dyslipidemia E78.5
[2025-01-11] MEDS: ENOXAPARIN INJ 40 MG/0.4 ML SYR SQ SCH (20:55)
[2025-01-12 04:57] LABS: Basophils # (auto) 0.06 K/uL (0.00-0.20); Basophils % (auto) 0.8 %; Eosinophils # (auto) 0.24 K/uL (0.00-0.50); Eosinophils % (auto) 3.3 %; Hematocrit (blood only) 35.7 % (42.0-52.0); Hemoglobin 12.1 g/dl (14.0-18.0); Immature Granulocytes # (auto) 0.02 K/uL (0.01-0.20); Immature Granulocytes % (auto) 0.3 %; Lymphocytes # (auto) 1.48 K/uL (1.20-3.40); Lymphocytes % (auto) 20.1 %; Mean Corpuscular Hemoglobin 30.4 pg (25.0-34.0); Mean Corpuscular Hgb Conc 33.9 g/dL (32.0-36.0); Mean Corpuscular Volume 89.7 fL (80.0-100.0); Mean Platelet Volume 9.4 fL (9.4-12.4); Monocytes # (auto) 0.88 K/uL (0.11-0.59); Neutrophils # (auto) 4.68 K/uL (1.40-6.50); Neutrophils % (auto) 63.5 %; Platelet Count 157 K/uL (130-400); RDW Coefficient of Variation 13.2 % (11.5-14.5); RDW Standard Deviation 43.8 fL (36.4-46.3); Red Blood Count 3.98 M/uL (4.70-6.10); White Blood Count 7.36 K/ul (4.8-10.8)
[2025-01-12] MEDS: CYANOCOBALAMIN (B-12) 500 MCG TABLET PO SCH (07:52)
[2025-01-12] MEDS: ROSUVASTATIN CALCIUM 10 MG TAB PO SCH (07:52)
[2025-01-12 08:19] VITALS: O2SAT 96
--- NOTE | 2025-01-12 09:05 | Pharmacy Report ---
- Date of Service January 12, 2025 - Pharmacy CVA/TIA Medication Review Medications to Prevent Stroke handout has been added to the patients discharge packet. Antiplatelet(s) * Aspirin 81 mg PO daily + Plavix 75 mg PO daily x 3 weeks then resume Plavix for lifetime Cholesterol * High intensity statin: rosuvastatin 20 mg daily DVT Prophylaxis * SCD knee Therapeutic Anticoagulation * No history of Afib/Aflutter noted Type 2 Diabetes * Patient does not have T2DM
[2025-01-12 11:26] VITALS: BP 110/87; RESP 24; TEMP 97.3
[2025-01-12] MEDS ORDERED: STROKE PATIENT DISCHARGE STA (13:33)
--- NOTE | 2025-01-12 13:44 | Discharge Summary ---
Discharge Summary Date of Service January 12, 2025 Principal Dx & Hospital Course #1 = Principal Diagnosis (1) Stroke-like symptoms: 69 y/o with HTN, HLD, previous strokes in 2000, 2002 presented as a stroke alert with symptoms of disturbed vision, double vision, feeling off balance which started today at 6:30 AM while he was up to go to the bathroom. He did have right gaze preference, abnormal eye movements, ataxia with HTS on exam. [facility] Tel[facility] consulted and he was given TNK in the ED. Was on plavix, pravastatin. -Ct head with old L occipital and bilateral frontotemporal infarcts in centrum semiovale, no hemorrhage -CTA head/neck with no LVO or significant stenoses -CXR by my interpretation is clear with median sternotomy wires present #Probable stroke s/p TNK. Symptoms have resolved and brain MRI was negative for acute infarct - head CT this morning without any evidence of hemorrhage, okay for transfer out of ICU, okay to start DAPT with aspirin and Plavix which I ordered -TTE unchanged from previous - normal LV, EF 55-60% no RWMA's no LVH, no significant valvular abnormalities, mildly dilated aortic root unchanged, RV, negative bubble study -lipid profile - LDL is at goal 54, TSH normal, A1c 6.0% - change pravastatin to rosuvastatin -consulted neurology Dr. Hernández - recommended ASA + clopidogrel for 21d then clopidogrel alone -PT/OT/ST consults reviewedHome with home health PT and OT if he is at his baseline. will need 24-hour assistance from his . usually uses walker for short distances and wheelchair for any long distances, (2) Benign essential hypertension: Normotensive today, losartan currently held (3) Dyspnea: Dyspnea and progressive weakness Has recently been evaluated for dyspnea, including pulmonary and cardiology - only some air trapping on PFTs. Has had progressive weakness. Sniff test, CK, Jacque-[address] Yoo, has neuro appointment 03/[address] Evans -reviewed sniff test and diaphragms moved symmetrically but less than normal excursion (only 1 rib space vs normal >=2) -CK and anti-Jacque-1 were normal -TSH normal, phos normal. ESR/CRP not done will order for a.m. - B12 low normal at 351, replace empirically with oral B12 - empirically replace thiamine (4) Atherogenic dyslipidemia: Hx carotid stenosis Will be on DAPT, ASA, Plavix, statin Plan Osteoporosis followed in rheumatology clinic - history of five compression fractures Gait disturbance, LE weakness - see above, per notes he uses wheelchair most of the time. He lives with his , they have an entry ramp and no stairs Trivial troponin elevation to 22.5 related to acute stroke DVT ppx - enoxaparin tonight Admission HPI Per Admitting Provider 69 y/o man with HTN, HLD and previous strokes resultant left sided weakness, came in as stroke alert to ED and given TNK. He had a stroke in 2000 treated at [facility] - perhaps got TPA - has persistent L sided weakness from this. He was in his USOH until 6:30 AM he got up to go to bathroom, developed neurological symptoms: vision couldn't focus, later some double vision, off balance / coordination, L weakness seemed baseline In the ED his initial exam notable for R gaze preference, could maybe get past midline, double vision, trouble looking up and down, trouble with HTS [facility] telestroke consulted - advised TNK, which was given. ICU consulted for post TNK admission Currently he is doing better with his vision - no double vision, R gaze preference improved, and with effort and second trial can look all the way to the left. L facial droop and not sure if this is baseline or old. LUE and LLE weakness present. He has been taking clopidogrel (last dose yesterday AM) and pravastatin. Has recently been evaluated for dyspnea, including pulmonary and cardiology - only some air trapping on PFTs. Has had progressive weakness. Sniff test, CK, Jacque-[address] Yoo, has neuro appointment 03/[address] Evans Discharge Plan Discharge Items Patient Disposition: Home - Home Health Services Reason For Visit: STROKE Discharge Diagnosis: 1. Suspected stroke - treated with "clot-busting" medicine; stroke aborted/resolved 2. visual disturbance - due to #1 - resolved 3. chronic shortness of breath 4. hoarse voice 5. prediabetes - hemoglobin a1c 6% (see handouts) Activity: As commented below Activity Comment: plan to take it easy for a few days, then gradually increase activities Exercise/Sports: Wait until after follow-up appointment Non-emergency contact: Primary Care Provider, Specialist and Neurologist Call non-emergency contact if: you have any medication questions and your symptoms worsen Follow-up/Referrals: Sonu Hernández MD [Physician] - (Neurology office will call Pt to schedule follow up) Alireza Ramírez MD [Primary Care Provider] - Otilio Nieves MD [Physician] - 01/22/25 8:00 am (Hospital follow up scheduled January 22 at 8:00) Diet: Heart Healthy Addtl Attending Provider Instructions: Mr Fiore, You were hospitalized after presenting with visual disturbance and concern for a stroke. Telestroke from [facility] saw you and advised "clot-busting" medication called "TNKase" to abort/stop the stroke. You received this IV medicine and following such you were admitted to the ICU. The medicine likely was successful as your MRI brain did not show any new stroke. Your visual disturbance resolved and you remained stable for the rest of your stay. [facility] Neurology saw you in consult. They recommended - 1. stop your pravastatin 2. start rosuvastatin 20mg once daily (for cholesterol) 3. take aspirin 81mg daily x 21 days then stop 4. continue your clopidogrel as previous In addition to the above please - 1. take zvnq-bxt-mfxcpty vitamin B12 1000mcg (1mg) daily x 6 months 2. take thiamine (vitamin B1) 100mg twice daily x 1 month only 3. we are going to set up a 30-day heart monitor for you to wear at home. There are certain types of abnormal heart rhythms (a.fib, a.flutter, etc) that can cause a stroke. We will be looking for those abnormal rhythms on the outpatient monitor. The monitor will be mailed to your home with instructions on how to use it. Finally, it appears you have very early "pre-diabetes." See handouts. At this time there is nothing to do specifically for it other than to watch your diet at home and have your family doctor monitor your "hemoglobin a1c" over time. Follow-up - see separate section Return to [facility] if - * you have fever over 100 degrees * you have any symptoms or signs of a new stroke event * you have severe, intractable headache * you have bleeding from any location * any other concerns It was our pleasure to care for you! Addtl Manager Radio Provider Instructions: Risk Factors for Stroke: You can reduce your chances of stroke by working with your medical provider to adopt a healthy lifestyle. Some specific ways to lower your chance of stroke are: * If you are a smoker, now is the time to stop smoking cigarettes * If you are diabetic, improve the control of your blood sugars * Avoid excessive amounts of alcohol * Control high blood pressure * Lose weight if you are overweight * Be sure to lead an active lifestyle * Eat a healthy diet low in salt, cholesterol and fat You should know about other risk factors for stroke that you are unable to control. These include: * Age 55 years or older * Male gender * Certain racial groups: , or / * Family History of Stroke, Mini stroke or Heart Attack * Sickle Cell Disease Follow Up: It is important for you to keep your follow up appointments with your medical provider. Who to Call and When: Medical Emergencies: Call 911 immediately if you experience any of the following warning signs and symptoms of Stroke: * Sudden numbness or weakness of the face, arm or leg, especially on one side of the body * Sudden confusion, trouble speaking or understanding * Sudden trouble seeing in one or both eyes * Sudden trouble walking, dizziness, loss of balance or coordination * Sudden severe headache with no cause Do not delay calling 911 if you experience any warning signs or symptoms of a stroke. Delay in seeking medical attention may affect what treatments can be given to you. . Pending Studies at Discharge: No Stand-Alone Forms: My [facility], Smoking Cessation, Medications to Prevent Stroke Medications and DC Order Prescriptions: New thiamine HCl (vitamin B1) 100 mg Tablet 100 mg PO BID Qty: 60 0RF aspirin 81 mg Tablet,Delayed Release (Dr/Ec) 81 mg PO QAM 21 Days Qty: 21 0RF Rx Instructions: purchase pxpx-kfn-swbrvio cyanocobalamin (vitamin B-12) 500 mcg Tablet 1,000 mcg PO QAM Qty: 90 2RF Rx Instructions: purchase zuix-iml-rzwsuqv rosuvastatin 20 mg Tablet 20 mg PO QAM Qty: 30 5RF Continued acetaminophen [Tylenol 8 Hour] 650 mg tablet extended release 650 mg PO Q12H PRN multivitamin Tablet 1 tab PO QAM clopidogrel 75 mg tablet 75 mg PO QAM cholecalciferol (vitamin D3) [Vitamin D3] 25 mcg (1,000 unit) Capsule 25 mcg PO QAM ezetimibe 10 mg tablet 10 mg PO QAM Held losartan 50 mg tablet 50 mg PO QAM Hold Instructions: hold unless your family doctor or neurologist advises to resume Discontinued pravastatin 80 mg tablet 80 mg PO QAM Discharge Orders: Discharge Order (Routine); Ordered 01/12/25 Ordered By: Nicolás Smith/Other Patient Handouts: Prediabetes, 5 Steps for Eating Healthier, Managing Diabetes: The A1C Test Admission Data Admit Date/Time: 01/10/25 09:03 Attending Provider: Nicolás Ibrahim Admit Provider: Britt Mar Primary Care Provider: Alireza Ramírez. Other Providers: Britt Mar; Dariusz Zimmerman; Emeterio Cordoba; Garrison Yoo; Camacho Wolfe; Irma Reddy; Dilshad Goldberg; Yulissa Molina; Margaret Blum; Dariusz Gaines; Sonu Hernández; Quin Lopez; Monik Garza; Taylor Ng; Gamal Evans; [facility] Stay Data Consultations 01/10/25 08:42 ED Decision to Admit Stat 01/10/25 09:41 Consult Die Cutter Operator Routine Consult Neurology Routine Diagnostic Imagining Performed 01/10/25 07:33 CT angio head w con Stat CT angio neck with con Stat CT head/brain wo con Stat 01/10/25 09:41 MR brain wo con Routine 01/11/25 08:56 CT head/brain wo con Routine Pending Results Patient Have Any Pending Studies at Discharge: No Discharge Instructions Given to Patient (Per Discharging Provider) Mr Fiore, Reginald were hospitalized after presenting with visual disturbance and concern for a stroke. Telestroke from [facility] saw you and advised "clot-busting" medication called "TNKase" to abort/stop the stroke. You received this IV medicine and following such you were admitted to the ICU. The medicine likely was successful as your MRI brain did not show any new stroke. Your visual disturbance resolved and you remained stable for the rest of your stay. [facility] Neurology saw you in consult. They recommended - 1. stop your pravastatin 2. start rosuvastatin 20mg once daily (for cholesterol) 3. take aspirin 81mg daily x 21 days then stop 4. continue your clopidogrel as previous In addition to the above please - 1. take nypm-dnc-lmmihuc vitamin B12 1000mcg (1mg) daily x 6 months 2. take thiamine (vitamin B1) 100mg twice daily x 1 month only 3. we are going to set up a 30-day heart monitor for you to wear at home. There are certain types of abnormal heart rhythms (a.fib, a.flutter, etc) that can cause a stroke. We will be looking for those abnormal rhythms on the outpatient monitor. The monitor will be mailed to your home with instructions on how to use it. Finally, it appears you have very early "pre-diabetes." See handouts. At this time there is nothing to do specifically for it other than to watch your diet at home and have your family doctor monitor your "hemoglobin a1c" over time. Follow-up - see separate section Return to [facility] if - * you have fever over 100 degrees * you have any symptoms or signs of a new stroke event * you have severe, intractable headache * you have bleeding from any location * any other concerns It was our pleasure to care for you! Coding Diagnoses Stroke-like symptoms R29.90 Benign essential hypertension I10 Dyspnea R06.00 Atherogenic dyslipidemia E78.5
[2025-01-12 13:59] VITALS: PULSE 87
--- NOTE | 2025-01-13 05:40 | Electrocardiogram Report ---
Test Reason : Blood Pressure : */* mmHG Vent. Rate : 68 BPM Atrial Rate : 68 BPM P-R Int : 182 ms QRS Dur : 72 ms QT Int : 376 ms P-R-T Axes : 30 5 17 degrees QTcB Int : 399 ms Sinus rhythm with Premature supraventricular complexes Nonspecific T wave abnormality Abnormal ECG When compared with ECG of 16-Dec-2024 14:00, Premature supraventricular complexes are now Present Confirmed by Pastor Genao ([id number]) on 01/13/2025 5:39:51 AM Referred By: Confirmed By: Pastor Genao
[2025-01-13 06:02] LABS: Free T4 Index (T7) DNR (1.4-3.8); T4 Total 7.1 mcg/dL (4.9-10.5)
[2025-01-13] MEDS ORDERED: ROSUVASTATIN CALCIUM 20 MG TAB PO SCH (09:00)
--- NOTE | 2025-01-14 09:32 | Pharmacy Report ---
Pharmacist Stroke Counseling - Date of Service January 14, 2025 - Scope: Pharmacy has been consulted to provide medication discharge counseling for this patient admitted with [ischemic stroke] [hemorrhagic stroke] [transient ischemic attack] as per the Pharmacist Discharge Counseling for Stroke Patients Pro tocol. - Medications on Discharge: Home Medications Medication Instructions Recorded Confirmed cholecalciferol (vitamin D3) 25 25 mcg PO QAM 08/18/21 01/04/25 mcg (1,000 unit) capsule (Vitamin D3) clopidogrel 75 mg tablet 75 mg PO QAM 08/18/21 01/04/25 ezetimibe 10 mg tablet 10 mg PO QAM 08/18/21 01/04/25 losartan 50 mg tablet 50 mg PO QAM 08/18/21 01/04/25 multivitamin 1 tab PO QAM 08/18/21 01/04/25 acetaminophen 650 mg 650 mg PO Q12H PRN 10/26/24 01/04/25 tablet,extended release (Tylenol 8 Hour) Medication Instructions Recorded aspirin 81 mg tablet,delayed 81 mg PO QAM 21 days #21 tabs 01/12/25 release cyanocobalamin (vitamin B-12) 500 1,000 mcg (2 x 500 mcg) PO QAM #90 01/12/25 mcg tablet tabs rosuvastatin 20 mg tablet 20 mg PO QAM #30 tabs 01/12/25 thiamine HCl (vitamin B1) 100 mg 100 mg PO BID #60 tabs 01/12/25 tablet - Action: The above medications, specifically ones for stroke treatment/prophylaxis, have been reviewed in detail with the patient and/or patient service support representative(s) prior to discharge. This includes indication, common adverse reactions, drug interactions, and medication administration. Medication counseling has been employed using the teach-back method to ensure understanding. - Outcome: The patient and/or patient service support representative(s) have demonstrated understanding of the medications. Additional comments: Was unable to reach patient via phone, however did speak with his who reports patient doing well. She reports he was able to sweet pickle maker all of the new medications on discharge and is following discharge instructions. She denies any questions/concerns at this time - I recommended she have patient call back if wanting to review medications more in depth or if any questions arise. They do have an upcoming doctors appt, I recommended bringing updated med list with them to their visit. She agreed. Thank you for allowing pharmacy to be involved in the care of this patient. Please call [phone] with any additional questions
== END 2025-01-12 15:00 | disposition home health service (06) | DRG 62 ==
LOC: ED 07:31 → 1E 09:03 → SUATTDRO 09:03 → 1E 09:19